=== PATIENT | female | born 1975 | race Caucasian/White ===

== ENCOUNTER 2020-11-24 09:26 | Outpatient (REF) | payer MEDICAID, SELFPAY | END 2020-11-24 09:27 | disposition home or self-care (01) | LOC: HO.LAB 09:26 | PROVIDERS: Visit Provider Internal Medicine | DX: Z20.822 Contact with and (suspected) exposure to COVID-19 (principal) | CPT/HCPCS: 36415; C9803; U0003 ==

== ENCOUNTER 2020-11-27 13:31 | Outpatient (REF) | payer MEDICAID, SELFPAY ==
--- NOTE | 2020-11-27 | MM_ITS ---
EXAMINATION: MM DIAGNOSTIC DIGITAL BREAST TOMOSYNTHESIS, BILATERAL US DIAGNOSTIC ULTRASOUND BREAST, BILATERAL CLINICAL INFORMATION: 45-year-old with tenderness lateral aspect both breasts and retroareolar regions with itchy sensation. Prior mammography approximately 9 years ago performed in [place] at unknown facility. No palpable mass or discharge. No known family history breast cancer. The lifetime risk of breast cancer based on the Tyrer-Cuzick Model is 8%. COMPARISON: None. TECHNIQUE: Digital breast tomosynthesis is performed in both the craniocaudal and mediolateral oblique views along with computer-aided detection (CAD). Synthesized 2D images are generated from the tomosynthesis. Ultrasound of each breast is targeted to the areas of clinical concern bilateral retroareolar regions, right 6:00 through 12:00 position and left 12:00 through 6:00 position. Grayscale imaging and color Doppler are performed without and with harmonics. FINDINGS: There are scattered areas of fibroglandular density (ACR BI-RADS breast composition Category b). There are no significant masses, abnormal calcifications, or other abnormalities. There is no skin thickening or coarsening of the Darinel's ligaments. No focal duct ectasia. Ultrasound ultrasound of each breast targeted to the areas of clinical concern show no cystic or solid mass, architectural abnormality, or focal duct ectasia. There is no skin thickening or edema tracking in the soft tissue planes. No focal hyperemia on color Doppler. Results are discussed with the patient at time of visit. MM/MM tomosynthesis diagnostic BI IMPRESSION: 1. No mammographic evidence of malignancy or inflammatory changes. 2. Unremarkable bilateral targeted breast ultrasound.. ASSESSMENT: BI-RADS 1: Negative RECOMMENDATION: 1. Patient's bilateral breast pain/tenderness should be managed based on the clinical impression. 2. Otherwise, routine annual screening mammography. This patient's information was entered into a reminder system with a target due date for their next mammogram.
--- NOTE | 2020-11-27 13:36 | US_ITS ---
EXAMINATION: MM DIAGNOSTIC DIGITAL BREAST TOMOSYNTHESIS, BILATERAL US DIAGNOSTIC ULTRASOUND BREAST, BILATERAL CLINICAL INFORMATION: 45-year-old with tenderness lateral aspect both breasts and retroareolar regions with itchy sensation. Prior mammography approximately 9 years ago performed in [place] at unknown facility. No palpable mass or discharge. No known family history breast cancer. The lifetime risk of breast cancer based on the Tyrer-Cuzick Model is 8%. COMPARISON: None. TECHNIQUE: Digital breast tomosynthesis is performed in both the craniocaudal and mediolateral oblique views along with computer-aided detection (CAD). Synthesized 2D images are generated from the tomosynthesis. Ultrasound of each breast is targeted to the areas of clinical concern bilateral retroareolar regions, right 6:00 through 12:00 position and left 12:00 through 6:00 position. Grayscale imaging and color Doppler are performed without and with harmonics. FINDINGS: There are scattered areas of fibroglandular density (ACR BI-RADS breast composition Category b). There are no significant masses, abnormal calcifications, or other abnormalities. There is no skin thickening or coarsening of the Darinel's ligaments. No focal duct ectasia. Ultrasound ultrasound of each breast targeted to the areas of clinical concern show no cystic or solid mass, architectural abnormality, or focal duct ectasia. There is no skin thickening or edema tracking in the soft tissue planes. No focal hyperemia on color Doppler. Results are discussed with the patient at time of visit. US/US breast RT limited IMPRESSION: 1. No mammographic evidence of malignancy or inflammatory changes. 2. Unremarkable bilateral targeted breast ultrasound.. ASSESSMENT: BI-RADS 1: Negative RECOMMENDATION: 1. Patient's bilateral breast pain/tenderness should be managed based on the clinical impression. 2. Otherwise, routine annual screening mammography. This patient's information was entered into a reminder system with a target due date for their next mammogram.
--- NOTE | 2020-11-27 13:36 | US_ITS ---
EXAMINATION: MM DIAGNOSTIC DIGITAL BREAST TOMOSYNTHESIS, BILATERAL US DIAGNOSTIC ULTRASOUND BREAST, BILATERAL CLINICAL INFORMATION: 45-year-old with tenderness lateral aspect both breasts and retroareolar regions with itchy sensation. Prior mammography approximately 9 years ago performed in [place] at unknown facility. No palpable mass or discharge. No known family history breast cancer. The lifetime risk of breast cancer based on the Tyrer-Cuzick Model is 8%. COMPARISON: None. TECHNIQUE: Digital breast tomosynthesis is performed in both the craniocaudal and mediolateral oblique views along with computer-aided detection (CAD). Synthesized 2D images are generated from the tomosynthesis. Ultrasound of each breast is targeted to the areas of clinical concern bilateral retroareolar regions, right 6:00 through 12:00 position and left 12:00 through 6:00 position. Grayscale imaging and color Doppler are performed without and with harmonics. FINDINGS: There are scattered areas of fibroglandular density (ACR BI-RADS breast composition Category b). There are no significant masses, abnormal calcifications, or other abnormalities. There is no skin thickening or coarsening of the Darinel's ligaments. No focal duct ectasia. Ultrasound ultrasound of each breast targeted to the areas of clinical concern show no cystic or solid mass, architectural abnormality, or focal duct ectasia. There is no skin thickening or edema tracking in the soft tissue planes. No focal hyperemia on color Doppler. Results are discussed with the patient at time of visit. US/US breast LT limited IMPRESSION: 1. No mammographic evidence of malignancy or inflammatory changes. 2. Unremarkable bilateral targeted breast ultrasound.. ASSESSMENT: BI-RADS 1: Negative RECOMMENDATION: 1. Patient's bilateral breast pain/tenderness should be managed based on the clinical impression. 2. Otherwise, routine annual screening mammography. This patient's information was entered into a reminder system with a target due date for their next mammogram.
== END 2020-11-27 13:32 | disposition home or self-care (01) ==
LOC: HO.MAMMO 13:31
PROVIDERS: Visit Provider Internal Medicine
DX: N64.4 Mastodynia (principal)
CPT/HCPCS: 76642; 77062; 77066

== ENCOUNTER 2020-12-22 10:34 | Emergency (ER) | payer MEDICAID, SELFPAY ==
--- NOTE | ~2020-12-22 | XR_ITS ---
EXAMINATION: XR CHEST CLINICAL INFORMATION: Chest discomfort COMPARISON: 06/23/2018 TECHNIQUE: Portable AP upright view of the chest was obtained. FINDINGS: No significant abnormality is noted involving the heart, lungs, mediastinum, bony thorax or soft tissues. XR/XR chest 1V IMPRESSION: Unremarkable examination.
[2020-12-22 10:39] VITALS: BP 136/63; PULSE 80; RESP 18; TEMP 36.8; O2SAT 98; BMI 29.1
--- NOTE | 2020-12-22 13:14 | ECG_ITS ---
Test Reason : CHEST PRESSUE Blood Pressure : / mmHG Vent. Rate : 060 BPM Atrial Rate : 060 BPM P-R Int : 134 ms QRS Dur : 082 ms QT Int : 418 ms P-R-T Axes : 028 040 003 degrees QTc Int : 418 ms Normal sinus rhythm Normal ECG When compared with ECG of 23-JUN-2018 12:39, Vent. rate has decreased BY 30 BPM Referred By: Jordan Napoles Electronically Signed By:Maynor Mcgregor
[2020-12-22 13:28] LABS: MANUAL DIFF FLAG NO
[2020-12-22 13:29] LABS: Basophils Absolute Auto 0.1 X10*3/uL (0.0-0.2); Basophils Percent Auto 1.1 % (0-2); Eosinophils Absolute Auto 0.1 X10*3/uL (0.0-0.4); Eosinophils Percent Auto 1.5 % (0-4); Hematocrit 39.5 % (37-47); Hemoglobin 13.2 g/dl (12.0-16.0); Imm Gran Abs Auto 0.01 X10*3/uL (0.00-0.03); Imm Gran Pct Auto 0.2 % (0.0-0.4); Lymphocytes Absolute Auto 2.7 X10*3/uL (1.2-4.9); Lymphocytes Percent Auto 44.1 % (20-40); Mean Corpuscular HGB Conc 33.4 g/dl (31.0-35.0); Mean Corpuscular Hemoglobin 30.2 pg (27.0-33.0); Mean Corpuscular Volume 90.4 fL (80-98); Mean Platelet Volume 9.6 fL (9.4-12.3); Monocytes Absolute Auto 0.4 X10*3/uL (0.1-1.2); Monocytes Percent Auto 7.2 % (2-11); Neutrophils Absolute Auto 2.8 X10*3/uL (2.0-8.3); Neutrophils Percent Auto 45.9 % (45-73); Platelet Count 290 X10*3/uL (160-400); Red Blood Count 4.37 X10*6/uL (4.20-5.50); Red Cell Distribution Width 12.3 % (11.0-16.0); White Blood Count 6.1 X10*3/uL (4.8-10.8)
[2020-12-22 13:35] LABS: Prothrombin Time 11.9 SEC (10.8-13.0)
[2020-12-22 13:38] LABS: Partial Thromboplastin Time 31.4 SEC (24.1-38.0)
[2020-12-22 13:39] LABS: D Dimer < 200 NG/ML
--- NOTE | 2020-12-22 13:48 | ED_ITS ---
HPI - Chest Pain General Chief Complaint: Extremity Injury, Lower Stated Complaint: R LEG PAIN AND CHEST DISCOMFORT Time Seen by Provider: 12/22/20 13:13 Source: patient Mode of arrival: ambulatory Limitations: no limitations History of Present Illness HPI narrative: 45-year-old female with past medical history that is significant for mitral valve prolapse, prior history of PE in 2008 in [place] as well as history of asthma who presents ambulatory via triage states that over the past 2 weeks or so has had intermittent chest discomfort not really pain in the left side of the chest and over past several days she has had posterior thigh pain in the left leg which she contributed to her frequent drive to [facility] for her job-related errands and thus given the symptoms she called her primary care doctor today given that today is Thursday she was advised to come to the emergency room. She denies any shortness of breath she does report that prior history of PE and she was concerned about that. No shortness of breath or really are eye symptoms. No dyspnea on exertion. No headache, dizziness, lower extremity swelling. MD complaint: chest pain Pertinent past history: asthma Severity: mild Related Data Previous Rx's Medication Instructions Recorded naproxen 500 mg PO BID PRN #14 tab 12/22/20 Allergies Allergy/AdvReac Type Severity Reaction Status Date / Time hydrocodone [HYDROCODONE] Allergy Mild HIVES Unverified 07/19/20 15:33 bee pollen [BEE STINGS] Allergy Unknown UNKNOWN Unverified 07/19/20 15:33 hydrocodone Allergy Unknown hives Uncoded 07/20/19 00:00 Review of Systems Review of Systems: Constitutional: No Weight loss, No Fever, No Chills, No Night Sweats, No Fatigue, No Malaise ENT/Mouth: No Hearing loss, No Ear Pain, No Nasal Congestion, No Sinus Pain, No Hoarseness, No sore throat, No Rhinorrhea, No Swallowing Difficulty Eyes: No Eye Pain, No Swelling, No Redness, No Foreign Body, No Discharge, No Vision Changes Cardiovascular: No SOB, No Dyspnea on Exertion, No Orthopnea, No Edema, No Palpitations Respiratory: No Cough, No Sputum, No Wheezing, No Smoke Exposure, No Dyspnea Gastrointestinal: No Nausea, No Vomiting, No Diarrhea, No Constipation, No abdominal Pain, No Hematochezia, No Melena Genitourinary: no irregular bleeding, No Dysuria, No Urinary Frequency, No Hematuria, No Urinary Incontinence, No Urgency, No Flank Pain, No Urinary Flow Changes, No Hesitancy Musculoskeletal: No joint pain, No Myalgias, No Joint Swelling, posterior thigh pain as in HPI. Skin: No Skin Lesions, No rash Neuro: No Weakness, No Numbness, No Paresthesias, No Loss of Consciousness, No Dizziness, No Headache Psych: No Social Issues Heme/Lymph: No Bruising, No Bleeding,No Lymphadenopathy Endocrine: No Polyuria, No Polydipsia, No Temperature Intolerance Yes all other systems are reviewed and are negative [facility] Past Medical History Medical History (Updated 12/22/20 @ 14:05 by Jordan Napoles NP) Anxiety Asthma Cervical ca Pulmonary embolism Surgical History (Updated 12/22/20 @ 10:42 by Elie Barrett) History of cardiac radiofrequency ablation Social History Social History Alcohol intake: never Smoking Status: Never smoker Use of substances other than those prescribed or required for medical reasons: No Advance Directives: No Advance Directives Information Provided: No Physical Exam Vital Signs: Vital Signs: Last Vital Signs Temp 98.2 F 12/22/20 10:39 Pulse 80 12/22/20 10:39 Resp 18 12/22/20 10:39 BP 136/63 12/22/20 10:39 Pulse Ox 98 12/22/20 10:39 Body Mass Index 29.1 Reviewed Const: General: cooperative and healthy appearing; No acute distress or in toxicated appearing Nutritional Appearance: average body habitus Orientation/consciousness: patient oriented x3 HENMT: Head: Yes normal to inspection Ears: hearing grossly normal bilaterally Eyes: General: appearance normal, both eyes and all related structures Visual Jimenez: normal visual jimenez by confrontation Neck: Neck: Yes normal visual inspection, No positive Brudzinski's sign, No positive Kernig's sign and No tender Thyroid: Thyroid normal Chest: Chest palpation & inspection: normal inspection of the chest Resp: Effort & Inspection: normal respiratory effort Auscultation: clear to auscultation bilaterally Cardio: Jugular venous distension: no JVD Rhythm: regular rhythm Heart sounds: S1 normal heart sound present and S2 normal heart sound present GI: Inspection: Yes normal to inspection Palpation (GI): Soft to palpation Percussion: Yes normal to percussion Auscultation: normal bowel sounds : General: Yes no CVA tenderness Back/Spine/Pelvis: Back: no CVA tenderness Skin: General skin exam: no rashes or lesions noted Neuro: General: patient oriented x3 Extrem: Other: Some diffuse tenderness with palpation over the posterior t high, full passive range of motion ambulatory steady gait. No palpable mass. Leg lift negative. Negative Homans. No rash. General: Yes normal to inspection MDM - Chest Pain MDM Narrative Medical decision making narrative: D-dimer negative, heart score 0. EKG without significant change, troponin negative. Differential Diagnosis Differential diagnosis: Likely atypical chest pain, costochondritis and chest pain; Unlikely fracture of rib, pneumothorax, stable angina, unstable angina pectoris, st elevation myocardial infarction and biliary colic Differential diagnosis: Pulmonary embolism, DVT, muscle strain Medical Records Data Attestation: I reviewed the patient's medical records. Lab Data Attestation: I reviewed the patient's lab results. Result diagrams: 12/22/20 13:23 12/22/20 13:23 Labs: Lab Results 12/22/20 12/22/20 12/22/20 Range/Units 13:23 13:23 13:23 WBC 6.1 (4.8-10.8) X10*3/uL RBC 4.37 (4.20-5.50) X10*6/uL Hgb 13.2 (12.0-16.0) g/dl Hct 39.5 (37-47) % MCV 90.4 (80-98) fL MCH 30.2 (27.0-33.0) pg MCHC 33.4 (31.0-35.0) g/dl RDW 12.3 (11.0-16.0) % Plt Count 290 (160-400) X10*3/uL MPV 9.6 (9.4-12.3) fL Immature Gran % (Auto) 0.2 (0.0-0.4) % Neut % (Auto) 45.9 (45-73) % Lymph % (Auto) 44.1 H (20-40) % [place] % (Auto) 7.2 (2-11) % Eos % (Auto) 1.5 (0-4) % Baso % (Auto) 1.1 (0-2) % Lymph # (Auto) 2.7 (1.2-4.9) X10*3/uL [place] # (Auto) 0.4 (0.1-1.2) X10*3/uL Eos # (Auto) 0.1 (0.0-0.4) X10*3/uL Baso # (Auto) 0.1 (0.0-0.2) X10*3/uL Abs Immat Gran (auto) 0.01 (0.00-0.03) X10*3/uL Absolute Neuts (auto) 2.8 (2.0-8.3) X10*3/uL Absolute Nucleated RBC 0.000 (0.0-0.012) X10*3/uL Nucleated RBC % (auto) 0.0 (0.0-0.2) /100WBC PT 11.9 (10.8-13.0) SEC INR 1.0 (0.9-1.1) APTT 31.4 (24.1-38.0) SEC D-Dimer < 200 NG/ML Sodium 139 (135-145) mmol/L Potassium 4.0 (3.3-5.1) mmol/L Chloride 109 H (96-108) mmol/L Carbon Dioxide 23 (22-29) mmol/L Anion Gap 11 L (12-20) BUN 20 H (9-16) mg/dL Creatinine 0.81 (0.5-1.4) mg/dL Estim Creat Clear Calc 93.2 Estimated GFR > 60 Random Glucose 87 (60-115) mg/dL Calcium 8.1 L (8.4-10.2) mg/dL Total Bilirubin 0.5 (0.0-1.0) mg/dL AST 16 (5-31) U/L ALT 14 (0-31) U/L Alkaline Phosphatase 69 (39-117) U/L Troponin I High Sens (<3.5-17.0) ng/L Total Protein 7.2 (6.5-8.0) g/dL Albumin 4.3 (3.5-5.0) g/dL 12/22/20 Range/Units 13:23 WBC (4.8-10.8) X10*3/uL RBC (4.20-5.50) X10*6/uL Hgb (12.0-16.0) g/dl Hct (37-47) % MCV (80-98) fL MCH (27.0-33.0) pg MCHC (31.0-35.0) g/dl RDW (11.0-16.0) % Plt Count (160-400) X10*3/uL MPV (9.4-12.3) fL Immature Gran % (Auto) (0.0-0.4) % Neut % (Auto) (45-73) % Lymph % (Auto) (20-40) % [place] % (Auto) (2-11) % Eos % (Auto) (0-4) % Baso % (Auto) (0-2) % Lymph # (Auto) (1.2-4.9) X10*3/uL [place] # (Auto) (0.1-1.2) X10*3/uL Eos # (Auto) (0.0-0.4) X10*3/uL Baso # (Auto) (0.0-0.2) X10*3/uL Abs Immat Gran (auto) (0.00-0.03) X10*3/uL Absolute Neuts (auto) (2.0-8.3) X10*3/uL Absolute Nucleated RBC (0.0-0.012) X10*3/uL Nucleated RBC % (auto) (0.0-0.2) /100WBC PT (10.8-13.0) SEC INR (0.9-1.1) APTT (24.1-38.0) SEC D-Dimer NG/ML Sodium (135-145) mmol/L Potassium (3.3-5.1) mmol/L Chloride (96-108) mmol/L Carbon Dioxide (22-29) mmol/L Anion Gap (12-20) BUN (9-16) mg/dL Creatinine (0.5-1.4) mg/dL Estim Creat Clear Calc Estimated GFR Random Glucose (60-115) mg/dL Calcium (8.4-10.2) mg/dL Total Bilirubin (0.0-1.0) mg/dL AST (5-31) U/L ALT (0-31) U/L Alkaline Phosphatase (39-117) U/L Troponin I High Sens < 3.5 (<3.5-17.0) ng/L Total Protein (6.5-8.0) g/dL Albumin (3.5-5.0) g/dL Imaging Data Chest x-ray: Radiologist's impression: [address] [id number] ReportSigned Patient: Toribio Hicks#: [id number]: 1975Acct:[id number]/Sex: 45 / FADM Date: 12/22/20Loc: EDAttm[address] Dr: Ordering Physician: Jordan Napoles NP Date of Service: 12/22/20 Procedure(s): XR chest 1V Accession Number(s): [id number] cc: Jordan Napoles BOAT [employer]ELER~ EXAMINATION: XR CHEST CLINICAL INFORMATION: Chest discomfort COMPARISON: 06/23/2018 TECHNIQUE: Portable AP upright view of the chest was obtained. FINDINGS: No significant abnormality is noted involving the heart, lungs, mediastinum, bony thorax or soft tissues. XR/XR chest 1V IMPRESSION: Unremarkable examination. Dictated By:TAD CORNELL MDSigned By:<Electronically signed by TAD CORNELL MD in OV>12/22/20 1337 DD/ 1328TD/TT: [place] Waitress/Waiter: LILIANE ECG Data ECG #1: Interpretation: Normal sinus rhythm Rate 60 Normal ECG When compared with ECG of 23-JUN-2018 12:39, Vent. rate has decreased BY 30 BPM Discharge Plan Discharge Clinical Impression: Atypical chest pain, Leg strain Patient Disposition: Home, Self-Care Instructions: Chest Pain (ED), Muscle Strain (ED) Additional Instructions: Your blood work as well as her EKG and chest x-ray were overall reassuring Home care as instructed Follow-up as instructed Return if any concerns worsening symptoms Thank you Prescriptions: New naproxen 500 mg tablet 500 mg PO BID PRN (Reason: pain) Qty: 14 RF: 0 Referrals: [place] MD [Primary Care Provider] - 1 week
[2020-12-22 13:51] LABS: Alanine Aminotransferase 14 U/L (0-31); Albumin Level 4.3 g/dL (3.5-5.0); Alkaline Phosphatase 69 U/L (39-117); Anion Gap 11 (12-20); Aspartate Amino Transferase 16 U/L (5-31); Bilirubin Total 0.5 mg/dL (0.0-1.0); Blood Urea Nitrogen 20 mg/dL (9-16); Calcium 8.1 mg/dL (8.4-10.2); Carbon Dioxide 23 mmol/L (22-29); Chloride 109 mmol/L (96-108); Creatinine Clr Calc Pharmacy 93.2; Estimated Glomerular Filt Rate > 60; Glucose Random 87 mg/dL (60-115); Sodium 139 mmol/L (135-145); Total Protein 7.2 g/dL (6.5-8.0)
[2020-12-22 13:57] LABS: Troponin-I High Sensitivity < 3.5 ng/L (<3.5-17.0)
== END 2020-12-22 15:09 | disposition home or self-care (01) ==
PROVIDERS: Nurse Practitioner Primary Care; Emergency Provider Emergency Medicine; PCP Internal Medicine
DX: R07.89 Other chest pain (principal); S76.911A Strain of unspecified muscles, fascia and tendons at thigh level, right thigh, initial encounter; X50.1XXA Overexertion from prolonged static or awkward postures, initial encounter; Y93.89 Activity, other specified; Y92.810 Car as the place of occurrence of the external cause; Y99.9 Unspecified external cause status; Z85.41 Personal history of malignant neoplasm of cervix uteri
CPT/HCPCS: 36415; 71045; 80053; 84484; 85025; 85379; 85610; 85730; 93005; 99283

== ENCOUNTER 2021-02-08 10:20 | Outpatient (REF) | payer MEDICAID, SELFPAY ==
--- NOTE | ~2021-02-08 | XR_ITS ---
EXAMINATION: XR PELVIS CLINICAL INFORMATION: Low back pain COMPARISON: None TECHNIQUE: AP view of the pelvis. FINDINGS: The bones and soft tissues are normal. No fracture. Sacroiliac and hip joints are normal. Pubic symphysis is normal. No abnormal soft tissue calcifications. XR/XR pelvis 1-2V IMPRESSION: Normal pelvis.
--- NOTE | ~2021-02-08 | XR_ITS ---
EXAMINATION: XR LUMBOSACRAL SPINE CLINICAL INFORMATION: Low back pain. COMPARISON: CT scan of the abdomen and pelvis January 2017 TECHNIQUE: Three views of the lumbosacral spine. FINDINGS: Minimal degenerative disc changes manifested by endplate osteophytes without disc space narrowing L2-L3 and L3-L4 levels. There is mild anterolisthesis of L5 on S1. Bilateral pars defect of L5. The partially visualized pelvis including sacroiliac joints are normal. XR/XR lumbar spine 2-3V IMPRESSION: Mild spondylosis of the lumbosacral spine. Bilateral pars defects at L5 with grade 1 anterolisthesis, unchanged compared with CT in 2017.
--- NOTE | ~2021-02-08 | XR_ITS ---
EXAMINATION: XR SHOULDER, RIGHT CLINICAL INFORMATION: Right shoulder pain COMPARISON: None TECHNIQUE: AP external rotation, Grashey, scapular Y, and axillary views of the right shoulder. FINDINGS: The bones and soft tissues are normal. No fracture. Glenohumeral and acromioclavicular alignment is anatomic with normal joint space. No abnormal soft tissue calcifications. XR/XR shoulder RT min 2V IMPRESSION: Normal right shoulder.
[2021-02-08 14:01] LABS: MANUAL DIFF FLAG NO
[2021-02-08 14:09] LABS: Basophils Absolute Auto 0.1 X10*3/uL (0.0-0.2); Basophils Percent Auto 1.2 % (0-2); Eosinophils Absolute Auto 0.1 X10*3/uL (0.0-0.4); Eosinophils Percent Auto 2.2 % (0-4); Hematocrit 39.3 % (37-47); Hemoglobin 13.3 g/dl (12.0-16.0); Imm Gran Abs Auto 0.01 X10*3/uL (0.00-0.03); Imm Gran Pct Auto 0.2 % (0.0-0.4); Lymphocytes Absolute Auto 1.5 X10*3/uL (1.2-4.9); Mean Corpuscular HGB Conc 33.8 g/dl (31.0-35.0); Mean Corpuscular Hemoglobin 30.6 pg (27.0-33.0); Mean Corpuscular Volume 90.3 fL (80-98); Mean Platelet Volume 10.2 fL (9.4-12.3); Monocytes Absolute Auto 0.6 X10*3/uL (0.1-1.2); Monocytes Percent Auto 15.3 % (2-11); Neutrophils Absolute Auto 1.8 X10*3/uL (2.0-8.3); Neutrophils Percent Auto 44.1 % (45-73); Platelet Count 270 X10*3/uL (160-400); Red Blood Count 4.35 X10*6/uL (4.20-5.50); Red Cell Distribution Width 12.6 % (11.0-16.0); White Blood Count 4.1 X10*3/uL (4.8-10.8)
[2021-02-08 14:25] LABS: Anion Gap 13 (12-20); Blood Urea Nitrogen 16 mg/dL (9-16); C Reactive Protein 0.33 mg/dL (< or = 0.50); Calcium 8.3 mg/dL (8.4-10.2); Carbon Dioxide 25 mmol/L (22-29); Chloride 106 mmol/L (96-108); Estimated Glomerular Filt Rate > 60; Glucose Random 86 mg/dL (60-115); Sodium 140 mmol/L (135-145)
== END 2021-02-08 10:21 | disposition home or self-care (01) ==
LOC: HO.10HDL 10:20
PROVIDERS: PCP Internal Medicine; Visit Provider Internal Medicine
DX: M54.5 Low back pain (principal); M25.511 Pain in right shoulder
CPT/HCPCS: 36415; 72100; 72170; 73030; 80048; 82550; 85025; 86140

== ENCOUNTER 2021-02-25 13:24 | Outpatient (REF) | payer MEDICAID, SELFPAY ==
--- NOTE | ~2021-02-25 | XR_ITS ---
EXAMINATION: XR SINUSES CLINICAL INFORMATION: Sinus pressure COMPARISON: None TECHNIQUE: The sinuses are imaged in 4 views. FINDINGS: The paranasal sinuses are clear. There is no mucosal thickening or air-fluid level. There is no sinus expansion or visible bony thickening or destructive process. The nasopharynx appears unremarkable on the lateral view. XR/XR sinus min 3V IMPRESSION: Unremarkable examination.
[2021-02-25 14:05] LABS: Basophils Absolute Auto 0.1 X10*3/uL (0.0-0.2); Eosinophils Absolute Auto 0.1 X10*3/uL (0.0-0.4); Eosinophils Percent Auto 1.9 % (0-4); Hematocrit 37.9 % (37-47); Hemoglobin 12.7 g/dl (12.0-16.0); Imm Gran Abs Auto 0.02 X10*3/uL (0.00-0.03); Imm Gran Pct Auto 0.3 % (0.0-0.4); Lymphocytes Absolute Auto 2.4 X10*3/uL (1.2-4.9); Lymphocytes Percent Auto 33.6 % (20-40); MANUAL DIFF FLAG NO; Mean Corpuscular HGB Conc 33.5 g/dl (31.0-35.0); Mean Corpuscular Hemoglobin 30.3 pg (27.0-33.0); Mean Corpuscular Volume 90.5 fL (80-98); Mean Platelet Volume 9.9 fL (9.4-12.3); Monocytes Absolute Auto 0.5 X10*3/uL (0.1-1.2); Monocytes Percent Auto 7.4 % (2-11); Neutrophils Percent Auto 55.8 % (45-73); Platelet Count 280 X10*3/uL (160-400); Red Blood Count 4.19 X10*6/uL (4.20-5.50); Red Cell Distribution Width 12.6 % (11.0-16.0); White Blood Count 7.2 X10*3/uL (4.8-10.8)
[2021-02-25 14:36] LABS: Anion Gap 12 (12-20); Blood Urea Nitrogen 12 mg/dL (9-16); C Reactive Protein 0.07 mg/dL (< or = 0.50); Calcium 8.9 mg/dL (8.4-10.2); Carbon Dioxide 24 mmol/L (22-29); Chloride 108 mmol/L (96-108); Estimated Glomerular Filt Rate > 60; Glucose Random 98 mg/dL (60-115); Sodium 140 mmol/L (135-145)
[2021-02-25 15:00] LABS: Thyroid Stimulating Hormone 1.32 uIU/mL (0.32-4.0)
== END 2021-02-25 13:25 | disposition home or self-care (01) ==
LOC: HO.LAB 13:24
PROVIDERS: PCP Internal Medicine; Visit Provider Internal Medicine
DX: M79.89 Other specified soft tissue disorders (principal); J01.90 Acute sinusitis, unspecified
CPT/HCPCS: 36415; 70220; 80048; 82550; 84443; 85025; 86140

== ENCOUNTER 2021-03-13 13:28 | Outpatient (REF) | payer MEDICAID, SELFPAY ==
[2021-03-13 14:30] LABS: COVID-19 Test Negative (Negative); IDNOW Serial# 55D5AD1C
== END 2021-03-13 13:29 | disposition home or self-care (01) ==
LOC: HO.LAB 13:28
PROVIDERS: Visit Provider Internal Medicine
DX: Z20.822 Contact with and (suspected) exposure to COVID-19 (principal)
CPT/HCPCS: 36415; 87635; C9803

== ENCOUNTER 2021-03-31 10:39 | Emergency (ER) | payer MEDICAID, SELFPAY ==
--- NOTE | ~2021-03-31 | XR_ITS ---
EXAMINATION: XR LUMBOSACRAL SPINE CLINICAL INFORMATION: Worsening back pain COMPARISON: None TECHNIQUE: Three views of the lumbosacral spine. FINDINGS: There is normal lumbar lordosis. The vertebral heights and alignment is normal. There is mild loss of L5-S1 disc height. Rest the disc heights are normal. No visible acute fracture, dislocation or lytic process seen. XR/XR lumbar spine 2-3V IMPRESSION: Mild degenerative disc changes L5-S1 disc level.
[2021-03-31 11:01] VITALS: BP 117/71; PULSE 87; RESP 16; TEMP 36.9; O2SAT 99; BMI 28.7
[2021-03-31] MEDS: Cyclobenzaprine HCl 10 MG TABLET PO (12:12)
[2021-03-31] MEDS: predniSONE 20 MG TABLET 60 MG PO (12:12)
[2021-03-31] MEDS: Ketorolac Tromethamine 30 MG/ML VIAL IM (12:13)
[2021-03-31 12:37] VITALS: RESP 16
--- NOTE | 2021-03-31 13:18 | ED.BACK ---
HPI - Back Pain/Injury General Chief Complaint: Back Pain/Injury Stated Complaint: BACK PAIN Time Seen by Provider: 03/31/21 11:56 Source: patient Mode of arrival: ambulatory Limitations: no limitations History of Present Illness HPI Narrative: Patient presents to ED for worsening back pain that began this morning radiating down both legs and causing tingling/numbness sensation in both legs. Patient states history of disc herniation and has follow-up with surgeon of the spine May 10. Patient states this morning she woke up with no problems & went back to bed and then when she woke up again to get up she felt sudden pain in her lower back since then her back has full tight/hurts on range of motion. Patient denies any abdominal pain, flank pain, fever, chills, dysuria, vaginal bleeding, increasue urinary frequency or hematuria. Patient denies any recent blunt trauma to the back or body. Patient denies any urinary/bowel incontinence. Patient denies paralysis of lower extremities. Related Data Previous Rx's Medication Instructions Recorded naproxen 500 mg PO BID PRN #14 tab 12/22/20 naproxen 500 mg PO BID PRN #20 tab 03/31/21 prednisone 40 mg PO DAILY #10 tab 03/31/21 tramadol 50 mg PO TID PRN #9 tab 03/31/21 Allergies Allergy/AdvReac Type Severity Reaction Status Date / Time hydrocodone [HYDROCODONE] Allergy Mild HIVES Verified 03/31/21 11:07 bee pollen [BEE STINGS] Allergy Unknown UNKNOWN Verified 03/31/21 11:07 hydrocodone Allergy Unknown hives Uncoded 03/31/21 11:07 Review of Systems Review of Systems: Yes all other systems are reviewed and are negative Constitutional: Constitutional: Reports as per HPI and Reports no additional constitutional complaints Eyes: Eyes: Reports as per HPI and Reports no additional eye complaints ENT: Reports system reviewed and no additional complaints, except as documented and Reports as per HPI Cardiovascular: Cardiovascular: Reports as per HPI and Reports no additional cardiovascular complaints Respiratory: Respiratory: Reports as per HPI and Reports no additional respiratory complaints Gastrointestinal: Gastrointestinal: Reports no additional gastrointestinal complaints Genitourinary: Genitourinary: Reports no additional female genitourinary complaints and Reports as per HPI Musculoskeletal: Musculoskeletal: Reports no additional musculoskeletal complaints, Reports as per HPI and Reports back pain Neurologic: Reports system reviewed and no additional complaints, except as documented and Reports as per HPI Psychiatric: Psychiatric: Reports no additional psychiatric complaints and Reports as per HPI [facility] Past Medical History Medical History (Updated 03/31/21 @ 14:38 by TAY Pereira) Anxiety Asthma Cervical ca Herniated disc Pulmonary embolism Surgical History (Updated 12/22/20 @ 10:42 by Elie Barrett) History of cardiac radiofrequency ablation Social History Social History Alcohol intake: never Patient Tobacco Use Status: Never used Tobacco Use of substances other than those prescribed or required for medical reasons: No Advance Directives: Yes Advance Directives Information Provided: No Advance Directives on File: No Patient : No Physical Exam Vital Signs: Vital Signs: Last Vital Signs Temp 96.8 F 03/31/21 14:15 Pulse 64 03/31/21 14:15 Resp 16 03/31/21 14:21 BP 121/52 L 03/31/21 14:15 Pulse Ox 100 03/31/21 14:15 Body Mass Index 28.7 Const: General: cooperative, healthy appearing, comfortable, no acute distress, well developed, alert, awake and Physically active Orientation/consciousness: patient oriented x3 HENMT: Head: Yes normal to inspection, Yes No palpable skull fracture present, Yes normocephalic, Yes atraumatic and No abrasion Eyes: General: appearance normal, both eyes and all related structures Neck: Neck: Yes normal visual inspection, Yes full ROM, Yes no lymphadenopathy, Yes no meningeal signs, Yes trachea midline, Yes supple and No tender Chest: Chest palpation & inspection: normal inspection of the chest and normal palpation of entire chest wall Breast/axilla inspection: normal inspection of the breasts Resp: Effort & Inspection: normal respiratory effort and able to speak in complete sentences Auscultation: clear to auscultation bilaterally Cardio: Jugular venous distension: no JVD Heart sounds: S1 normal heart sound present and S2 normal heart sound present GI: Inspection: Yes normal to inspection and No abdominal wall ecchymosis Palpation (GI): Soft to palpation, not firm, nontender, no guarding and not rigid : General: No CVA tenderness and Yes no CVA tenderness Back/Spine/Pelvis: Back: no CVA tenderness, No CVA tenderness and back tenderness (lumbar.) Skin: General skin exam: no rashes or lesions noted and elasticity normal Neuro: General: patient oriented x3, no meningeal signs and CN's II-XI intact bilaterally Cranial nerves: Yes CN's II-XII intact bilaterally Extrem: General: Yes normal to inspection and Yes full ROM Psych: Appearance: grossly normal, well kempt and not disheveled Course Course Course Narrative: Will give meds for pain control. Does not need repeat x-ray due to no trauma. Reevaluation(s) Reevaluation #1: Patient has no relief with Toradol, prednisone, and Flexeril. X-ray of lumbar spine ordered to see for any new fractures. Tramadol ordered. Patient states history of taking tramadol in the past without reaction. Reevaluation #2: X-ray negative for fracture. Patient feels better with tramadol. Patient informed she will need to follow up with PCP and spine surgeon for an early appointment. Patient states may need repeat MRI to evalauate for nerve impingement worsening sciatica. Not suspecting cord compression. MDM - Back Pain/Injury MDM Narrative Medical decision making narrative: Lumbar radiculopathy. Sciatica Discharge Plan Discharge Clinical Impression: Lumbar radiculopathy, Sciatica Patient Disposition: Home, Self-Care Instructions: Sciatica (ED), Lumbar Radiculopathy (ED) Additional Instructions: Return to the ED immediately for urinary/bowel incontinence, paralysis of lower extremities, worsening back pain, abdominal pain, nausea, vomiting, fever, chills, inability to ambulate, flank pain or any other concerning symptoms. Prescriptions: New tramadol 50 mg tablet 50 mg PO TID PRN (Reason: pain (scale score 7-10)) Qty: 9 RF: 0 naproxen 500 mg tablet 500 mg PO BID PRN (Reason: pain) Qty: 20 RF: 0 prednisone 20 mg tablet 40 mg PO DAILY Qty: 10 RF: 0 No Action naproxen 500 mg tablet 500 mg PO BID PRN (Reason: pain) Qty: 14 RF: 0 Referrals: Main Park MD [Primary Care Provider] - 2 days (Lumbar radiculopathy. Worsening sciatica. X-ray shows degenerative changes at L5/S1. Negative for fracture. Will need repeat MRI to evaluate for nerve impingement. Recommend earlier appointment with spine surgeon.) Interventions: ED Discharge Assessment Last Done: 03/31/21 14:59 Discharge Date/Time: 03/31/21 15:13 Print Language: Azerbaijani
[2021-03-31] MEDS: traMADoL HCL 50 MG TABLET PO (13:34)
[2021-03-31 14:15] VITALS: BP 121/52; PULSE 64; RESP 17; TEMP 36; O2SAT 100
[2021-03-31 14:21] VITALS: RESP 16
== END 2021-03-31 15:13 | disposition home or self-care (01) ==
PROVIDERS: Emergency Provider Emergency Medicine Emergency Medical Services; PCP Internal Medicine
DX: M54.16 Radiculopathy, lumbar region (principal); M54.42 Lumbago with sciatica, left side; M54.41 Lumbago with sciatica, right side
CPT/HCPCS: 72100; 96372; 99284; J1885

== ENCOUNTER → 2021-05-13 12:28 | Outpatient (BNVA) | payer MEDICAID, SELFPAY | PROVIDERS: PCP Internal Medicine; Referring Provider Internal Medicine; Visit Provider Internal Medicine Cardiovascular Disease | DX: R00.2 Palpitations (principal); Z86.711 Personal history of pulmonary embolism | CPT/HCPCS: 93005; 99212 ==

== ENCOUNTER 2021-07-12 12:42 | Outpatient (REF) | payer MEDICAID, SELFPAY | END 2021-07-12 12:43 | disposition home or self-care (01) | LOC: HO.LAB 12:42 | PROVIDERS: PCP Internal Medicine; Visit Provider Internal Medicine | DX: Z20.822 Contact with and (suspected) exposure to COVID-19 (principal) | CPT/HCPCS: C9803; U0003; U0005 ==

== ENCOUNTER 2021-07-18 11:00 | Outpatient (REF) | payer MEDICAID, SELFPAY ==
[2021-07-18 11:59] LABS: COVID-19 Test Positive (Negative)
== END 2021-07-18 11:01 | disposition home or self-care (01) ==
LOC: HO.LAB 11:00
PROVIDERS: PCP Internal Medicine; Visit Provider Internal Medicine
DX: Z20.822 Contact with and (suspected) exposure to COVID-19 (principal)
CPT/HCPCS: 36415; 87635; C9803

== ENCOUNTER 2021-08-28 11:53 | Outpatient (REF) | payer MEDICAID, SELFPAY ==
[2021-08-28 13:56] LABS: Appearance Urine HAZY; Color Urine YELLOW; Glucose Urine UA NEG (NEG); Leukocyte Esterase Urine TRACE (NEG); Nitrite Urine NEG (NEG); Specific Gravity - Urine 1.025 (1.005-1.025); UACC Culture Trigger YES; Urine Blood NEG (NEG); Urine Ketones NEG (NEG); Urine Protein NEG (NEG-TRACE)
[2021-08-28 13:57] LABS: MANUAL DIFF FLAG NO
[2021-08-28 14:18] LABS: Basophils Percent Auto 0.7 % (0-2); Eosinophils Absolute Auto 0.1 X10*3/uL (0.0-0.4); Eosinophils Percent Auto 1.2 % (0-4); Hematocrit 38.3 % (37-47); Hemoglobin 12.8 g/dl (12.0-16.0); Imm Gran Abs Auto 0.01 X10*3/uL (0.00-0.03); Imm Gran Pct Auto 0.2 % (0.0-0.4); Lymphocytes Absolute Auto 2.1 X10*3/uL (1.2-4.9); Lymphocytes Percent Auto 35.7 % (20-40); Mean Corpuscular HGB Conc 33.4 g/dl (31.0-35.0); Mean Corpuscular Volume 89.7 fL (80-98); Mean Platelet Volume 10.3 fL (9.4-12.3); Monocytes Absolute Auto 0.4 X10*3/uL (0.1-1.2); Monocytes Percent Auto 7.3 % (2-11); Neutrophils Absolute Auto 3.2 X10*3/uL (2.0-8.3); Neutrophils Percent Auto 54.9 % (45-73); Platelet Count 303 X10*3/uL (160-400); Red Blood Count 4.27 X10*6/uL (4.20-5.50); Red Cell Distribution Width 12.9 % (11.0-16.0); White Blood Count 5.9 X10*3/uL (4.8-10.8)
[2021-08-28 14:31] LABS: Alanine Aminotransferase 17 U/L (0-31); Albumin Level 4.3 g/dL (3.5-5.0); Alkaline Phosphatase 70 U/L (39-117); Anion Gap 12 (12-20); Aspartate Amino Transferase 20 U/L (5-31); Bilirubin Total 0.8 mg/dL (0.0-1.0); Blood Urea Nitrogen 14 mg/dL (9-16); Calcium 8.6 mg/dL (8.4-10.2); Carbon Dioxide 23 mmol/L (22-29); Chloride 109 mmol/L (96-108); Estimated Glomerular Filt Rate > 60; Glucose Random 88 mg/dL (60-115); Potassium 4.2 mmol/L (3.3-5.1); Sodium 140 mmol/L (135-145); Total Protein 7.2 g/dL (6.5-8.0)
[2021-08-28 14:56] LABS: Mucus Urine 1+ /LPF; Squamous Epithelial Cell Urine 2+ /LPF
== END 2021-08-28 11:54 | disposition home or self-care (01) ==
LOC: HO.10HDL 11:53
PROVIDERS: Visit Provider Internal Medicine
DX: R30.0 Dysuria (principal); N20.0 Calculus of kidney
CPT/HCPCS: 36415; 80053; 81001; 81003; 85025; 87086

== ENCOUNTER 2021-08-30 15:27 | Outpatient (REF) | payer MEDICAID, SELFPAY ==
--- NOTE | ~2021-08-30 | US_ITS ---
EXAMINATION: US RETROPERITONEAL COMPLETE (RENAL) CLINICAL INFORMATION: Renal stones. COMPARISON: Ultrasound abdomen complete 02/13/2017. CT abdomen and pelvis 02/10/2017. KUB 08/28/2015 and 11/14/2014. TECHNIQUE: Real-time imaging of the kidneys and bladder. FINDINGS: RIGHT KIDNEY: 10.9 x 4.8 x 4.5 cm (SAG x AP x TRV). The kidney is normal in size, contour, and echogenicity. Renal cortical thickness is normal. There is a 5 mm stone in the lower pole. No focal parenchymal lesions or hydronephrosis. LEFT KIDNEY: 11.2 x 4.7 x 4.4 cm (SAG x AP x TRV). The kidney is normal in size, contour, and echogenicity. Renal cortical thickness is normal. No calculi or focal parenchymal lesions. No hydronephrosis. BLADDER: Partially distended. No stone or mass is seen. Bilateral ureteral jets are demonstrated. Prevoid bladder volume is 117 mL. Postvoid bladder volume is 4.4 mL. US/US retroperitoneal comp IMPRESSION: Right renal stone.
== END 2021-08-30 15:28 | disposition home or self-care (01) ==
LOC: HO.US 15:27
PROVIDERS: PCP Internal Medicine; Visit Provider Internal Medicine
DX: N20.2 Calculus of kidney with calculus of ureter (principal)
CPT/HCPCS: 76770

== ENCOUNTER 2022-02-18 14:33 | Outpatient (REF) | payer MEDICAID, SELFPAY ==
[2022-02-18 14:46] LABS: MANUAL DIFF FLAG NO
[2022-02-18 15:16] LABS: Basophils Absolute Auto 0.1 X10*3/uL (0.0-0.2); Basophils Percent Auto 1.2 % (0-2); Eosinophils Absolute Auto 0.2 X10*3/uL (0.0-0.4); Hematocrit 39.3 % (37.0-47.0); Hemoglobin 13.1 g/dl (12.0-16.0); Lymphocytes Percent Auto 35.8 % (20-40); Mean Corpuscular HGB Conc 33.3 g/dl (31.0-35.0); Mean Corpuscular Hemoglobin 29.7 pg (27.0-33.0); Mean Corpuscular Volume 89.1 fL (80.0-98.0); Mean Platelet Volume 9.6 fL (9.4-12.3); Monocytes Absolute Auto 0.5 X10*3/uL (0.1-1.2); Monocytes Percent Auto 9.4 % (2-11); Neutrophils Absolute Auto 2.8 x10*3/uL (2.0-8.3); Neutrophils Percent Auto 50.6 % (45-73); Platelet Count 324 X10*3/uL (160-400); Red Blood Count 4.41 X10*6/uL (4.20-5.50); Red Cell Distribution Width 13.5 % (11.0-16.0); White Blood Count 5.6 X10*3/uL (4.8-10.8)
[2022-02-18 15:44] LABS: Alanine Aminotransferase 27 U/L (0-31); Albumin Level 4.2 g/dL (3.5-5.0); Alkaline Phosphatase 90 U/L (39-117); Anion Gap 11 (12-20); Aspartate Amino Transferase 25 U/L (5-31); Bilirubin Total 0.6 mg/dL (0.0-1.0); Blood Urea Nitrogen 19 mg/dL (9-16); Calcium 9.2 mg/dL (8.4-10.2); Carbon Dioxide 27 mmol/L (22-29); Chloride 105 mmol/L (96-108); Estimated Glomerular Filt Rate > 60; Glucose Random 60 mg/dL (60-115); Potassium 4.3 mmol/L (3.3-5.1); Sodium 139 mmol/L (135-145); Total Protein 7.3 g/dL (6.5-8.0)
[2022-02-18 16:04] LABS: Free T4 (Free Thyroxine) 1.31 ng/dL (0.71-1.85); Thyroid Stimulating Hormone 0.83 uIU/mL (0.32-4.0)
[2022-02-18 16:08] LABS: Vitamin B12 307 pg/mL (200-900)
== END 2022-02-18 14:34 | disposition home or self-care (01) ==
LOC: HO.LAB 14:33
PROVIDERS: PCP Internal Medicine; Visit Provider Internal Medicine
DX: R53.83 Other fatigue (principal); J45.909 Unspecified asthma, uncomplicated; R00.2 Palpitations; R42 Dizziness and giddiness
CPT/HCPCS: 36415; 80053; 82607; 84439; 84443; 85025

== ENCOUNTER 2022-03-24 04:50 | Emergency (ER) | payer MEDICAID, SELFPAY ==
--- NOTE | ~2022-03-24 | CT_ITS ---
EXAMINATION: CT ABDOMEN AND PELVIS WITHOUT CONTRAST CLINICAL INFORMATION: Diffuse abdominal pain worse in the epigastric. COMPARISON: None TECHNIQUE: Multidetector volumetric imaging was performed from the superior aspect of the liver through the pubic symphysis. Sagittal and coronal reformatted images were obtained on the technologist's workstation. This CT examination was performed using dose optimization techniques as appropriate, variously including the following: *Automated exposure control *Adjustment of mA and/or kV according to patient size (this includes techniques or standardized protocols for targeted exams where dose is matched to indication/reason for exam; i.e. extremities or head) *Use of iterative reconstruction technique DLP: 6:15 mGy-cm FINDINGS: LUNG BASES: The lung bases are clear. Heart size is normal. LIVER, GALLBLADDER, AND BILIARY TREE: The liver is normal in size, shape, and diffuse hypoattenuation. This area of normal attenuation in the right hepatic lobe adjacent to moo hepatis and caudate lobe likely focal fat fatty sparing. No intrahepatic ductal dilatation seen. The gallbladder is unremarkable with no evidence of radiopaque gallstones, gallbladder wall thickening, or obvious pericholecystic inflammatory changes. PANCREAS: Unremarkable. SPLEEN: Unremarkable. ADRENAL GLANDS: Unremarkable. KIDNEYS AND URETERS: There is small radiopaque renal calculi in the upper mid and lower pole right kidney with the largest radiopaque calculi measuring 4 mm in the lower pole. There are small radiopaque calculi in the upper and lower pole left kidney with the largest calculi measuring 2 mm in upper and lower pole. There is no caliectasis or hydronephrosis seen. BLADDER: Unremarkable. GASTROINTESTINAL TRACT: There is scattered stool and gas seen throughout the colon without significant distention. The small bowel loops are normal caliber. Appendix is not visualized. ABDOMINAL WALL: No significant hernia is appreciated. LYMPH NODES: Normal. VASCULAR: Unremarkable. PELVIC VISCERA: The uterus is anteverted and appears unremarkable. There is no free fluid or free air. No adnexal mass seen. OSSEOUS STRUCTURES: There are cages at the L5-S1 disc level for disc fusion. No lytic or sclerotic process seen. CT/CT abdomen pelvis wo con IMPRESSION: No acute intra-abdominal process seen especially no abnormality seen in the epigastric region. Bilateral nonobstructive radiopaque renal calculi. There is no hydronephrosis. Fatty infiltration of liver with areas of focal fatty sparing. Fleischner guidelines were followed.
[2022-03-24 05:04] VITALS: BP 141/64; PULSE 83; RESP 16; TEMP 36.6; O2SAT 100; BMI 28.7
[2022-03-24 05:29] LABS: Basophils Absolute Auto 0.1 X10*3/uL (0.0-0.2); Basophils Percent Auto 0.9 % (0-2); Eosinophils Absolute Auto 0.3 X10*3/uL (0.0-0.4); Eosinophils Percent Auto 4.4 % (0-4); Hematocrit 38.1 % (37.0-47.0); Hemoglobin 12.8 g/dl (12.0-16.0); Imm Gran Abs Auto 0.01 X10*3/uL (0.00-0.03); Imm Gran Pct Auto 0.2 % (0.0-0.4); Lymphocytes Absolute Auto 2.3 X10*3/uL (1.2-4.9); Lymphocytes Percent Auto 41.4 % (20-40); MANUAL DIFF FLAG NO; Mean Corpuscular HGB Conc 33.6 g/dl (31.0-35.0); Mean Corpuscular Hemoglobin 29.9 pg (27.0-33.0); Mean Platelet Volume 9.2 fL (9.4-12.3); Monocytes Absolute Auto 0.5 X10*3/uL (0.1-1.2); Monocytes Percent Auto 8.9 % (2-11); Neutrophils Absolute Auto 2.5 x10*3/uL (2.0-8.3); Neutrophils Percent Auto 44.2 % (45-73); Platelet Count 284 X10*3/uL (160-400); Red Blood Count 4.28 X10*6/uL (4.20-5.50); Red Cell Distribution Width 12.8 % (11.0-16.0); White Blood Count 5.6 X10*3/uL (4.8-10.8)
[2022-03-24 05:51] LABS: Alanine Aminotransferase 17 U/L (0-31); Alkaline Phosphatase 79 U/L (39-117); Anion Gap 10 (12-20); Aspartate Amino Transferase 16 U/L (5-31); Bilirubin Direct < 0.2 mg/dL (0.0-0.5); Bilirubin Total < 0.2 mg/dL (0.0-1.0); Blood Urea Nitrogen 17 mg/dL (9-16); Calcium 8.8 mg/dL (8.4-10.2); Carbon Dioxide 24 mmol/L (22-29); Chloride 107 mmol/L (96-108); Creatinine Clr Calc Pharmacy 90.4; Estimated Glomerular Filt Rate > 60; Glucose Random 108 mg/dL (60-115); Lipase 44 U/L (8-78); Sodium 137 mmol/L (135-145)
--- NOTE | 2022-03-24 06:02 | ED_ITS ---
HPI - Abdominal Pain General Chief Complaint: Abdominal Pain Stated Complaint: abd pain/stomach pain Time Seen by Provider: 03/24/22 05:54 Source: patient Mode of arrival: ambulatory Limitations: no limitations History of Present Illness HPI narrative: Patient comes to the emergency room complaining of 2 days of epigastric pain. Patient states that she has history of ulcers. However she has not had any issues lately, has been following a diet, denies eating any food that might upset her stomach. Patient denies fever chills, no coughing, no vomiting diarrhea. Related Data Home Medications Medication Instructions Recorded Confirmed escitalopram oxalate 10 mg tablet 1 tab PO QAM 05/28/21 05/28/21 multivitamin 1 tab PO DAILY 05/28/21 05/28/21 trazodone 50 mg tablet 1 tab PO BEDTIME PRN 05/28/21 05/28/21 Previous Rx's Medication Instructions Recorded tramadol 50 mg tablet 50 mg PO TID PRN #9 tab 03/31/21 omeprazole 20 mg capsule,delayed 20 mg PO DAILY #20 cap 03/24/22 release Allergies Allergy/AdvReac Type Severity Reaction Status Date / Time hydrocodone [HYDROCODONE] Allergy Mild HIVES Verified 03/31/21 11:07 bee pollen [BEE STINGS] Allergy Unknown UNKNOWN Verified 03/31/21 11:07 hydrocodone Allergy Unknown hives Uncoded 03/31/21 11:07 Review of Systems Review of Systems Constitutional : No Weight loss, No Fever, No Chills, No Night Sweats, No Fatigue, No Malaise ENT/Mouth : No Hearing loss, No Ear Pain, No Nasal Congestion, No Sinus Pain, No Hoarseness, No sore throat, No Rhinorrhea, No Swallowing Difficulty Eyes: No Eye Pain, No Swelling, No Redness, No Foreign Body, No Discharge, No Vision Changes Cardiovascular : No Chest Pain, No SOB, No Dyspnea on Exertion, No Orthopnea, No Edema, No Palpitations Respiratory : No Cough, No Sputum, No Wheezing, No Smoke Exposure, No Dyspnea Gastrointestinal : Modeling of nausea No Vomiting, No Diarrhea, No Constipation, complaining of epigastric pain Genitourinary : no irregular bleeding, No Dysuria, No Urinary Frequency, No Hematuria, No Urinary Incontinence, No Urgency, No Flank Pain, No Urinary Flow Changes, No Hesitancy Musculoskeletal : No joint pain, No Myalgias, No Joint Swelling Skin : No Skin Lesions, No rash Neuro : No Weakness, No Numbness, No Paresthesias, No Loss of Consciousness, No Dizziness, No Headache Psych : No Anxiety/Panic, No Depression, No SI/HI/AH/VH, No Social Issues, Heme/Lymph: No Bruising, No Bleeding,No Lymphadenopathy Endocrine : No Polyuria, No Polydipsia, No Temperature Intolerance [facility] Past Medical History Medical History Anxiety Asthma Cervical ca Herniated disc Pulmonary embolism Surgical History History of cardiac radiofrequency ablation Family History Family History (Updated 05/28/21 @ 14:33 by Dora Jacobs) Maternal Uncle Prostate cancer Maternal Grandfather Stroke Paternal Grandfather Lung cancer Paternal Aunt Stomach cancer Maternal Grandmother Heart attack Dementia Father Diabetes HTN (hypertension) Maternal Uncle HTN (hypertension) Maternal Uncle HTN (hypertension) Paternal Grandmother Dementia Social History Social History (Updated 05/28/21 @ 14:33 by Dora Jacobs) Alcohol intake: former Patient Tobacco Use Status: Never used Tobacco Advance Directives: No Advance Directives Information Provided: Yes Physical Exam ED Vital Signs: Vital Signs - 24 hr 03/24/22 05:04 03/24/22 06:37 03/24/22 06:40 Temperature 97.8 F 98.5 F Pulse Rate 83 65 87 Respiratory Rate 16 16 16 Blood Pressure 141/64 H 139/85 116/60 Pulse Oximetry 100 100 95 BMI result Body Mass Index 28.7 Const Other: Appearance: Alert. Oriented X3. No acute distress. Eyes: Pupils equal, round and reactive to light. ENT: Pharynx normal. Neck: Normal inspection. Neck supple. No lymph nodes noted. No crepitus CVS: Normal heart rate and rhythm. Pulses normal. Normal S1 and S2 Respiratory: No respiratory distress. Breath sounds normal. No Wheezing. No rales Abdomen: Soft , tender to palpation epigastric area, however she is also tender in all quadrants. Skin: Skin warm and dry. Normal skin color. Normal skin turgor. Extremities: No lower extremity edema. No Lacerations. No Rash Neuro: Oriented X 3. No motor deficit. No sensory deficit. Moving all extremities. No slurred speech. CN 2 through 12 grossly intact Psych: calm, cooperative, normal affect Course Course Course Narrative: I discussed the labs with the patient, no significant acute findings. However, physical exam she was tender in all quadrants. Will go ahead get CT scan. Precipitating discharged home. Likely peptic ulcer disease. LFTs within normal limits. Sign-out given to Dr. Gupta [facility] - Abdominal Pain Lab Data Result diagrams: 03/24/22 05:03/24/22 05:23 Labs: Lab Results 03/24/22 03/24/22 Range/Units 05: 05:23 WBC 5.6 (4.8-10.8) X10*3/uL RBC 4.28 (4.20-5.50) X10*6/uL Hgb 12.8 (12.0-16.0) g/dl Hct 38.1 (37.0-47.0) % MCV 89.0 (80.0-98.0) fL MCH 29.9 (27.0-33.0) pg MCHC 33.6 (31.0-35.0) g/dl RDW 12.8 (11.0-16.0) % Plt Count 284 (160-400) X10*3/uL MPV 9.2 L (9.4-12.3) fL Immature Gran % (Auto) 0.2 (0.0-0.4) % Neut % (Auto) 44.2 L (45-73) % Lymph % (Auto) 41.4 H (20-40) % Dukes % (Auto) 8.9 (2-11) % Eos % (Auto) 4.4 H (0-4) % Baso % (Auto) 0.9 (0-2) % Lymph # (Auto) 2.3 (1.2-4.9) X10*3/uL Dukes # (Auto) 0.5 (0.1-1.2) X10*3/uL Eos # (Auto) 0.3 (0.0-0.4) X10*3/uL Baso # (Auto) 0.1 (0.0-0.2) X10*3/uL Abs Immat Gran (auto) 0.01 (0.00-0.03) X10*3/uL Absolute Neuts (auto) 2.5 (2.0-8.3) x10*3/uL Absolute Nucleated RBC 0.000 (0.0-0.012) X10*3/uL Nucleated RBC % (auto) 0.0 (0.0-0.2) /100WBC Sodium 137 (135-145) mmol/L Potassium 4.0 (3.3-5.1) mmol/L Chloride 107 (96-108) mmol/L Carbon Dioxide 24 (22-29) mmol/L Anion Gap 10 L (12-20) BUN 17 H (9-16) mg/dL Creatinine 0.85 (0.5-1.4) mg/dL Estim Creat Clear Calc 90.4 Estimated GFR > 60 Random Glucose 108 (60-115) mg/dL Calcium 8.8 (8.4-10.2) mg/dL Total Bilirubin < 0.2 (0.0-1.0) mg/dL Direct Bilirubin < 0.2 (0.0-0.5) mg/dL AST 16 (5-31) U/L ALT 17 (0-31) U/L Alkaline Phosphatase 79 (39-117) U/L Total Protein 7.0 (6.5-8.0) g/dL Albumin 4.0 (3.5-5.0) g/dL Lipase 44 (8-78) U/L Discharge Plan Discharge Clinical Impression: Peptic ulcer Patient Disposition: Home, Self-Care Instructions: Peptic Ulcer (ED), Diet for Stomach Ulcers and Gastritis (ED) Additional Instructions: Please follow-up with your primary care physician tomorrow. If you have any worsening or new symptoms, please return to the emergency room or call 911 Prescriptions: New omeprazole 20 mg capsule,delayed release(DR/EC) 20 mg PO DAILY Qty: 20 0RF No Action tramadol 50 mg tablet 50 mg PO TID PRN (Reason: pain (scale score 7-10)) Qty: 9 0RF multivitamin Tablet 1 tab PO DAILY 0RF trazodone 50 mg tablet 1 tab PO BEDTIME PRN (Reason: Insomnia) 0RF escitalopram oxalate 10 mg tablet 1 tab PO QAM 0RF
--- NOTE | 2022-03-24 06:04 | ECG_ITS ---
Test Reason : EPI GASTRIC PAIN Blood Pressure : / mmHG Vent. Rate : 062 BPM Atrial Rate : 062 BPM P-R Int : 142 ms QRS Dur : 078 ms QT Int : 394 ms P-R-T Axes : 023 040 000 degrees QTc Int : 399 ms Normal sinus rhythm Normal ECG When compared with ECG of 22-DEC-2020 13:32, No significant change was found Referred By: Precious Salas Electronically Signed By:Maynor Mcgregor
[2022-03-24] MEDS: Magnesium Hydrox/Alum Hydrox 30 ML ORAL.SUSP PO (06:32)
[2022-03-24] MEDS: Lidocaine HCl Viscous 2 % 15 ML SOLUTION MUCOUS MEM (06:32)
[2022-03-24 06:37] VITALS: BP 139/85; PULSE 65; RESP 16; TEMP 36.9; O2SAT 100
[2022-03-24 06:40] VITALS: BP 116/60; PULSE 87; RESP 16; O2SAT 95
[2022-03-24 07:03] LABS: Appearance Urine HAZY; Color Urine YELLOW; Glucose Urine UA NEG (NEG); Leukocyte Esterase Urine NEG (NEG); Nitrite Urine NEG (NEG); Urine Blood NEG (NEG); Urine Ketones NEG (NEG); Urine Protein NEG (NEG-TRACE)
[2022-03-24 09:01] VITALS: BP 95/47; PULSE 71; RESP 16; O2SAT 98
== END 2022-03-24 09:10 | disposition home or self-care (01) ==
PROVIDERS: Emergency Medicine; Emergency Provider Emergency Medicine
DX: K27.9 Peptic ulcer, site unspecified, unspecified as acute or chronic, without hemorrhage or perforation (principal); Z86.711 Personal history of pulmonary embolism
CPT/HCPCS: 36415; 74176; 80053; 81003; 82248; 83690; 85025; 93005; 99284

== ENCOUNTER 2022-04-28 17:12 | Outpatient (REF) | payer MEDICAID, SELFPAY ==
[2022-04-28 17:41] LABS: Strep A Nucleic Acid Negative (Negative)
== END 2022-04-28 17:13 | disposition home or self-care (01) ==
LOC: HO.LNP 17:12
PROVIDERS: Visit Provider Internal Medicine
DX: J02.9 Acute pharyngitis, unspecified (principal)
CPT/HCPCS: 87651

== ENCOUNTER → 2022-06-24 13:59 | Outpatient (BNVA) | payer MEDICAID, SELFPAY | PROVIDERS: PCP Internal Medicine; Visit Provider Physician Assistant | DX: K21.9 Gastro-esophageal reflux disease without esophagitis (principal); R68.81 Early satiety; Z79.899 Other long term (current) drug therapy | CPT/HCPCS: 83013; 99202; 99212 ==

== ENCOUNTER 2022-06-24 14:55 | Outpatient (REF) | payer MEDICAID, SELFPAY ==
[2022-06-27 13:40] LABS: H Pylori Breath Test Negative (Negative)
== END 2022-06-24 14:56 | disposition home or self-care (01) ==
LOC: HO.LNP 14:55
PROVIDERS: Visit Provider Physician Assistant
DX: A04.8 Other specified bacterial intestinal infections (principal); K21.9 Gastro-esophageal reflux disease without esophagitis; R68.81 Early satiety; Z12.11 Encounter for screening for malignant neoplasm of colon; Z79.899 Other long term (current) drug therapy
CPT/HCPCS: 83013

== ENCOUNTER → 2022-09-18 15:20 | Outpatient (BNVA) | payer MEDICAID, SELFPAY | PROVIDERS: PCP Internal Medicine; Visit Provider Internal Medicine Cardiovascular Disease | DX: R22.1 Localized swelling, mass and lump, neck (principal); R00.2 Palpitations; Z86.711 Personal history of pulmonary embolism; Z98.890 Other specified postprocedural states | CPT/HCPCS: 99212 ==

== ENCOUNTER 2022-10-23 14:11 | Outpatient (REF) | payer MEDICAID, SELFPAY ==
--- NOTE | ~2022-10-23 | US_ITS ---
EXAMINATION: US SOFT TISSUE HEAD/NECK CLINICAL INFORMATION: Localized swelling, mass or lump, neck. COMPARISON: Ultrasound soft tissue head/neck 03/02/2018. TECHNIQUE: Linear transducer grayscale and color Doppler examination of the left neck, just above clavicle. FINDINGS: No abnormality is identified by ultrasound. No adenopathy, mass or fluid collection is seen. US/US soft tiss head and/or neck IMPRESSION: No abnormality identified by ultrasound.
== END 2022-10-23 14:12 | disposition home or self-care (01) ==
LOC: HO.US 14:11
PROVIDERS: Visit Provider Internal Medicine Cardiovascular Disease
DX: R22.1 Localized swelling, mass and lump, neck (principal)
CPT/HCPCS: 76536

== ENCOUNTER 2023-02-03 14:12 | Outpatient (REF) | payer MEDICAID, SELFPAY ==
[2023-02-03 14:33] LABS: MANUAL DIFF FLAG NO
[2023-02-03 14:42] LABS: Basophils Absolute Auto 0.1 X10*3/uL (0.0-0.2); Basophils Percent Auto 1.2 % (0-2); Eosinophils Absolute Auto 0.1 X10*3/uL (0.0-0.4); Eosinophils Percent Auto 2.6 % (0-4); Hematocrit 38.3 % (37.0-47.0); Imm Gran Abs Auto 0.01 X10*3/uL (0.00-0.03); Imm Gran Pct Auto 0.2 % (0.0-0.4); Lymphocytes Absolute Auto 2.2 X10*3/uL (1.2-4.9); Lymphocytes Percent Auto 43.8 % (20-40); Mean Corpuscular HGB Conc 33.9 g/dl (31.0-35.0); Mean Corpuscular Volume 91.4 fL (80.0-98.0); Mean Platelet Volume 9.6 fL (9.4-12.3); Monocytes Absolute Auto 0.4 X10*3/uL (0.1-1.2); Monocytes Percent Auto 7.7 % (2-11); Neutrophils Absolute Auto 2.3 x10*3/uL (2.0-8.3); Neutrophils Percent Auto 44.5 % (45-73); Platelet Count 263 X10*3/uL (160-400); Red Blood Count 4.19 X10*6/uL (4.20-5.50); Red Cell Distribution Width 12.3 % (11.0-16.0); White Blood Count 5.1 X10*3/uL (4.8-10.8)
[2023-02-03 15:20] LABS: Alanine Aminotransferase 16 U/L (0-31); Albumin Level 4.1 g/dL (3.5-5.0); Alkaline Phosphatase 76 U/L (39-117); Anion Gap 8 (12-20); Aspartate Amino Transferase 18 U/L (5-31); Bilirubin Total 0.3 mg/dL (0.0-1.0); Blood Urea Nitrogen 15 mg/dL (9-16); Calcium 8.9 mg/dL (8.4-10.2); Carbon Dioxide 30 mmol/L (22-29); Chloride 107 mmol/L (96-108); Estimated Glomerular Filt Rate > 60; Glucose Random 85 mg/dL (60-115); Potassium 4.6 mmol/L (3.3-5.1); Sodium 140 mmol/L (135-145)
[2023-02-03 15:41] LABS: Free T4 (Free Thyroxine) 1.14 ng/dL (0.71-1.85); Thyroid Stimulating Hormone 1.09 uIU/mL (0.32-4.0); Vitamin B12 369 pg/mL (200-900)
[2023-02-04 14:34] LABS: Follicle Stimulating Hormone 61.5 mIU/mL; Lutenizing Hormone 62.1 mIU/mL
== END 2023-02-03 14:13 | disposition home or self-care (01) ==
LOC: HO.LAB 14:12
PROVIDERS: PCP Internal Medicine; Visit Provider Internal Medicine
DX: R53.83 Other fatigue (principal)
CPT/HCPCS: 36415; 80053; 82607; 83001; 83002; 84439; 84443; 85025

== ENCOUNTER 2023-07-25 17:25 | Emergency (ER) | payer MEDICAID, SELFPAY ==
--- NOTE | ~2023-07-25 | XR_ITS ---
EXAMINATION: XR HAND, RIGHT CLINICAL INFORMATION: Pain COMPARISON: None available. TECHNIQUE: PA, lateral, and oblique views of the right hand. FINDINGS: The bones and soft tissues are normal. No fracture. Alignment is anatomic. Joint spaces are maintained. No erosions or soft tissue calcifications. XR/XR hand RT min 3V IMPRESSION: No acute osseous changes to explain patient's pain symptoms.
[2023-07-25 17:29] VITALS: BP 119/56; PULSE 83; RESP 18; TEMP 36.8; O2SAT 99; BMI 28.5
--- NOTE | 2023-07-25 17:31 | ED_ITS ---
HPI - Wound/Laceration General Chief Complaint: Extremity Injury, Upper Stated Complaint: Poked right hand with a dania nail, pain/throbbing Time Seen by Provider: 07/25/23 17:55 Source: patient, RN notes reviewed and old records reviewed Mode of arrival: ambulatory History of Present Illness HPI narrative: 48-year-old female with a past medical history of GERD, PE, palpitations, presenting to the ED complaining of puncture wound to right palm s/p accidentally slamming hand into ceiling where dania nail was sticking out 1 hour [employer]. Tetanus greater than 5 years ago. Denies fever/chills, drainage from area, numbness/tingling Onset (ago): hour(s) Related Data Home Medications Medication Instructions Recorded Confirmed zolpidem 5 mg tablet (Ambien) 5 mg PO BEDTIME PRN 06/24/22 09/18/22 albuterol sulfate 90 mcg/actuation 2 puff inhalation QID PRN 09/18/22 aerosol inhaler (ProAir HFA) nabumetone 500 mg tablet 500 mg PO BID 09/18/22 valacyclovir 1 gram tablet 1,000 mg PO BID 09/18/22 Previous Rx's Medication Instructions Recorded cephalexin 500 mg capsule 500 mg PO QID 7 days #28 caps 07/25/23 Allergies Allergy/AdvReac Type Severity Reaction Status Date / Time wasp Allergy Severe Anaphylaxis Uncoded 07/25/23 17:35 hydrocodone Allergy Unknown hives Uncoded 07/25/23 17:35 Review of Systems Review of Systems: Constitutional: No Fever, No Chills ENT/Mouth: No Ear Pain, No Nasal Congestion, No sore throat, No Rhinorrhea, No Swallowing Difficulty Cardiovascular: No Chest Pain, No SOB Respiratory: No Cough, No Sputum, No Wheezing Gastrointestinal: No Nausea, No Vomiting, No Abdominal pain Musculoskeletal: +joint pain, No Myalgias, + Joint Swelling Skin: +Skin Lesions, No rash Neuro: No Weakness, No Numbness, No Paresthesias Yes all other systems are reviewed and are negative Constitutional: Constitutional: Reports as per [facility] Past Medical History Attestation statement: The following information was validated with the patient. Source: old records reviewed Medical History Herniated disc Anxiety Asthma Cervical ca Pulmonary embolism Surgical History History of back surgery History of cardiac radiofrequency ablation Family History Family History Maternal Uncle Prostate cancer Maternal Grandfather Stroke Paternal Grandfather Lung cancer Paternal Aunt Stomach cancer Maternal Grandmother Heart attack Dementia Father Diabetes HTN (hypertension) Maternal Uncle HTN (hypertension) Maternal Uncle HTN (hypertension) Paternal Grandmother Dementia Social History Social History Alcohol intake: former Patient Tobacco Use Status: Never used Tobacco Smoked in Last 30 Days: No Use of substances other than those prescribed or required for medical reasons: No Advance Directives: No Advance Directives Information Provided: No Physical Exam Vital Signs: Vital Signs: Last Vital Signs Temp 98.2 F 07/25/23 17:29 Pulse 83 07/25/23 17:29 Resp 18 07/25/23 17:29 BP 119/56 L 07/25/23 17:29 Pulse Ox 99 07/25/23 17:29 O2 Del Method Room Air 07/25/23 17:29 BMI result Body Mass Index 28.5 Const: General: cooperative, healthy appearing and no acute distress Orientation/consciousness: patient oriented x3 Limitations: no limitations HEENT: Head: Yes normal to inspection and Yes atraumatic Ears: hearing grossly normal bilaterally General nose exam: Normal external nose present Face and sinus: Yes normal facial exam Eyes: General: appearance normal, both eyes and all related structures EOM: EOMs intact bilaterally Neck: Neck: Yes normal visual inspection and Yes no meningeal signs Resp: Effort & Inspection: normal respiratory effort and no respiratory distress Cardio: Rate: regular rate Heart sounds: S1 normal heart sound present and S2 normal heart sound present Peripheral pulses: radial pulses present and ulnar radial pulses present Skin: Rashes: no rashes Neuro: General: patient oriented x3, tone normal and no meningeal signs Cranial nerves: Yes CN's II-XII intact bilaterally Gait exam (Neuro): Normal gait present Extrem: Other: + small puncture wound noted to right pa lm. Mild surrounding swelling. +ttp. No surrounding erythema, fluctuance/induration or appreciable retained foreign body. Full range of motion to digits and wrist intact. No snuffbox tenderness. Neurovascularly intact. No streaking Course Course Course Narrative: This is an RME: Additional HPI, ROS, PE not included below will be deferred to primary provider. This is a 62-psis-ihd-female presenting to the emergency department with complaints of right hand pain since today. She states that she hit her right palm with a lot of force into a dania nail by accident. She has had throbbing pain in her right hand. She states that her tetanus is not up to date. She is right hand dominant. Puncture wound noted to right palm with surrounding pain. Plan: Xray right hand. XR hand RT min 3V IMPRESSION: No acute osseous changes to explain patient's pain symptoms. Results discussed with patient including worrisome signs and symptoms and strict return precautions, and when to return to the emergency department. They verbalized understanding and feel safe for discharge at this time. Medications Administered Discontinued Medications Generic Name Dose Route Start Last Admin Trade Name Freq PRN Reason Stop Dose Admin Diphtheria/Tetanus/Acell Pertussis 0.5 ml 07/25/23 17:33 07/25/23 18:04 Diphth,Pertus(Acell),Tet Adult 0.5 Ml Syringe IM 07/25/23 17:34 0.5 ml .ONCE ONE Administration Medical Decision Making Medical Decision Making MDM Narrative: 48-year-old female with a past medical history of GERD, PE, palpitations, presenting to the ED complaining of puncture wound to right palm s/p ac cidentally slamming hand into ceiling where dania nail was sticking out 1 hour [employer]. On exam vital signs stable, NAD, nontoxic appearing, physical exam as noted above. Concern for puncture wound. Low suspicion for retained foreign body or acute cellulitis. Plan: X-rays ordered in triage, update tetanus, prophylactic antibiotics Please refer to course for remaining clinical decision making, interpretation of labs/imaging results, and discussions with consultants and/or family members. Differential Diagnosis Differential Diagnoses: The differential diagnosis associated with the presentation includes As above Radiology Impression Discussion of test interpretation with radiology: I have reviewed the radiologist's reading. External Record Review External record reviewed: Inpatient record, Office record, Outpatient record, Prior outpatient labs, Prior outpatient radiology, Primary care record and Outside ED record Tests considered The following testing was considered but not selected: As above Prescription Management I considered prescription management with: Pain Medication and Antibiotic Discharge Plan Discharge Clinical Impression: Puncture wound of hand Patient Disposition: Home, Self-Care Instructions: Puncture Wound (DC) Additional Instructions: your x-ray was unremarkable Keflex as an antibiotic please take as prescribed Her tetanus was updated Keep a close eye on the area if begins to look infected, is red there is drainage or you fever return to the ED Prescriptions: New cephalexin 500 mg capsule 500 mg PO QID 7 Days Qty: 28 0RF No Action zolpidem [Ambien] 5 mg tablet 5 mg PO BEDTIME PRN nabumetone 500 mg tablet 500 mg PO BID albuterol sulfate [ProAir HFA] 90 mcg/actuation HFA aerosol inhaler 2 puff inhalation QID PRN valacyclovir 1 gram tablet 1,000 mg PO BID Referrals: [place] MD [Primary Care Provider] - 5 days
[2023-07-25] MEDS: Diphth,Pertus(ACell),Tet Adult 0.5 ML SYRINGE IM (18:04)
[2023-07-25 19:08] VITALS: BP 115/54; PULSE 73; RESP 18; TEMP 36.8; O2SAT 99
== END 2023-07-25 19:10 | disposition home or self-care (01) ==
PROVIDERS: Emergency Provider Emergency Medicine; PCP Internal Medicine
DX: S61.431A Puncture wound without foreign body of right hand, initial encounter (principal); W45.0XXA Nail entering through skin, initial encounter; Y93.89 Activity, other specified; Y92.019 Unspecified place in single-family (private) house as the place of occurrence of the external cause; Y99.9 Unspecified external cause status
CPT/HCPCS: 73130; 90471; 90715; 99284

== ENCOUNTER 2023-09-04 15:15 | Outpatient (REF) | payer MEDICAID, SELFPAY ==
[2023-09-04 15:40] LABS: MANUAL DIFF FLAG NO
[2023-09-04 16:20] LABS: Basophils Absolute Auto 0.1 X10*3/uL (0.0-0.2); Basophils Percent Auto 1.2 % (0-2); Eosinophils Absolute Auto 0.2 X10*3/uL (0.0-0.4); Hematocrit 36.8 % (37.0-47.0); Hemoglobin 12.3 g/dl (12.0-16.0); Imm Gran Abs Auto 0.02 X10*3/uL (0.00-0.03); Imm Gran Pct Auto 0.3 % (0.0-0.4); Lymphocytes Absolute Auto 2.7 X10*3/uL (1.2-4.9); Lymphocytes Percent Auto 43.9 % (20-40); Mean Corpuscular HGB Conc 33.4 g/dl (31.0-35.0); Mean Corpuscular Hemoglobin 30.8 pg (27.0-33.0); Mean Corpuscular Volume 92.2 fL (80.0-98.0); Mean Platelet Volume 9.8 fL (9.4-12.3); Monocytes Absolute Auto 0.5 X10*3/uL (0.1-1.2); Monocytes Percent Auto 8.9 % (2-11); Neutrophils Absolute Auto 2.6 x10*3/uL (2.0-8.3); Neutrophils Percent Auto 42.7 % (45-73); Platelet Count 283 X10*3/uL (160-400); Red Blood Count 3.99 X10*6/uL (4.20-5.50); Red Cell Distribution Width 12.4 % (11.0-16.0); White Blood Count 6.1 X10*3/uL (4.8-10.8)
[2023-09-04 16:26] LABS: Appearance Urine Clear; Color Urine Yellow; Glucose Urine UA Negative (Negative); Leukocyte Esterase Urine Negative (Negative); Nitrite Urine Negative (Negative); UMIC TRIGGER UA YES; Urine Blood Moderate (2+) (Negative); Urine Ketones Negative (Negative); Urine Protein Negative (Neg-Trace)
[2023-09-04 16:44] LABS: Alanine Aminotransferase 10 U/L (0-31); Albumin Level 4.1 g/dL (3.5-5.0); Alkaline Phosphatase 71 U/L (39-117); Anion Gap 8 (12-20); Aspartate Amino Transferase 16 U/L (5-31); Bilirubin Total 0.3 mg/dL (0.0-1.0); Blood Urea Nitrogen 16 mg/dL (9-16); Calcium 8.9 mg/dL (8.4-10.2); Carbon Dioxide 27 mmol/L (22-29); Chloride 107 mmol/L (96-108); Estimated Glomerular Filt Rate > 60; Glucose Random 78 mg/dL (60-115); Potassium 4.1 mmol/L (3.3-5.1); Sodium 138 mmol/L (135-145); Total Protein 7.1 g/dL (6.5-8.0)
[2023-09-04 16:56] LABS: Bacteria Urine None Seen (None Seen); Hyaline Casts Urine 0-2 /LPF (0-2); WBC Urine 0-5 /HPF (0-5)
== END 2023-09-04 15:16 | disposition home or self-care (01) ==
LOC: HO.LAB 15:15
PROVIDERS: PCP Internal Medicine; Visit Provider Internal Medicine
DX: R31.9 Hematuria, unspecified (principal); Z87.898 Personal history of other specified conditions
CPT/HCPCS: 36415; 80053; 81001; 85025

== ENCOUNTER 2023-09-17 16:35 | Outpatient (REF) | payer MEDICAID, SELFPAY ==
--- NOTE | ~2023-09-17 | XR_ITS ---
EXAMINATION: XR HIP, LEFT CLINICAL INFORMATION: Pain. COMPARISON: None available. TECHNIQUE: AP and frog-leg lateral views of the left hip. FINDINGS: No fracture. Alignment is anatomic. Hip joint space is maintained. Soft tissues are unremarkable. There are left pelvic surgical clips. XR/XR hip LT min 2V IMPRESSION: Normal left hip.
== END 2023-09-17 16:36 | disposition home or self-care (01) ==
LOC: HO.XRAY 16:35
PROVIDERS: PCP Internal Medicine; Visit Provider Internal Medicine
DX: M25.552 Pain in left hip (principal)
CPT/HCPCS: 73502

== ENCOUNTER 2023-10-07 12:28 | Outpatient (AMB) | payer MEDICAID, SELFPAY ==
--- NOTE | 2023-10-07 12:31 | MHC.OFFVIS ---
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 The patient states that several years ago she underwent low back surgery by Dr. Philip. The patient states that she got only mild relief from that surgery. Since that time her back pain, left leg weakness and left leg numbness have gotten worse in spite of continued non operative treatments. She has tried Tylenol and anti-inflammatory medicines which gave her minimal relief. She has also done physical therapy which aggravated her symptoms. Allergies wasp Allergy (Severe, Uncoded 09/11/23 15:21) Anaphylaxis hydrocodone Allergy (Intermediate, Uncoded 10/07/23 12:36) hives Hydrocodone-Ibuprofen Allergy (Unknown, Uncoded 10/07/23 12:36) Hives Medication List - Last Reconciled 10/07/23 by Guy Andino MD albuterol sulfate 90 mcg/actuation (ProAir HFA) 2 puffs inhalation QID PRN cephalexin 500 mg PO QID 7 days nabumetone 500 mg PO BID valacyclovir 1,000 mg PO BID zolpidem (Ambien) 5 mg PO BEDTIME PRN PFSH Medical History Herniated disc Anxiety Asthma Cervical ca Pulmonary embolism Surgical History History of back surgery History of cardiac radiofrequency ablation Family History Maternal Uncle Prostate cancer Maternal Grandfather Stroke Paternal Grandfather Lung cancer Paternal Aunt Stomach cancer Maternal Grandmother Heart attack Dementia Father Diabetes HTN (hypertension) Maternal Uncle HTN (hypertension) Maternal Uncle HTN (hypertension) Paternal Grandmother Dementia Social History Alcohol intake: former Patient Tobacco Use Status: Never used Tobacco Physical Exam Vital Signs: BMI result Body Mass Index 27.9 Const Other: Well-nourished well-developed very friendly female awake alert and oriented x3 in no acute distress Back/Spine/Pelvis Other: Low back examination shows left-sided paraspinal muscle tenderness, pain with range of motion, positive straight leg raise test on the left at 70 degrees, 4/5 strength with testing of her left hip flexors and knee extensors when compared to 5/5 strength on her right side Extrem Other: Bilateral lower extremity examination shows good capillary refill, no skin lesions noted, normal sensation light touch Left hip examination shows full range of motion when compared to her right hip, minimal discomfort with range of motion, mild tenderness over her bursa Results Reviewed Results Reviewed: X-rays of the patient's left hip show no significant degenerative changes, no acute bony abnormalities Assessment & Plan Assessment & Plan (1) Low back pain: Code(s): M54.50 - Low back pain, unspecified Plan Ms. Hicks presents with progressively worsening low back pain which radiates down her left leg as well as associated left leg weakness possibly due to lumbar stenosis or a disc herniation. Thus, I will send the patient for an MRI of her lumbar spine for further evaluation. I will contact her by phone once the MRI results are available. She will call me prior to that time should her symptoms worsen in any way. I did give her a prescription for a Medrol Dosepak to help with her symptoms in the meantime. Feel free to call me at any time should questions regarding her orthopedic management arise. Thank you very much for asking me to see this very friendly patient. I spent 22 minutes in reviewing the patient's records and imaging studies, seeing the patient and documenting in the medical record. Orders: Orders MR lumbar spine wo con Today M54.50 - Low back pain, unspecified Medications: New methylprednisolone (Medrol (Scott)) PO PER PKG DIR 21 ea 0RF Coding Level of Care Code New Pt Level 2 (73862) Diagnoses Low back pain M54.50
[2023-10-07 12:36] VITALS: BMI 27.9
== END 2023-10-07 12:54 | disposition home or self-care (01) ==
PROVIDERS: PCP Internal Medicine; Visit Provider Orthopaedic Surgery
DX: M54.50 Low back pain, unspecified (principal)
CPT/HCPCS: 99202

== ENCOUNTER → 2023-10-07 12:28 | Outpatient (BNVA) | payer MEDICAID, SELFPAY | PROVIDERS: PCP Internal Medicine; Visit Provider Orthopaedic Surgery | DX: M54.50 Low back pain, unspecified (principal) | CPT/HCPCS: 99202 ==

== ENCOUNTER 2024-04-15 19:26 | Emergency (ER) | payer OTHER, SELFPAY ==
--- NOTE | ~2024-04-15 | XR_ITS ---
EXAMINATION: XR ELBOW, RIGHT CLINICAL INFORMATION: Fall. Pain. COMPARISON: None available. TECHNIQUE: AP, lateral, and oblique views of the right elbow. FINDINGS: There is no fracture or dislocation. No significant joint effusion. Regional soft tissue is normal in appearance. XR/XR elbow RT 2V IMPRESSION: No fracture or dislocation.
[2024-04-15 19:31] VITALS: BP 126/68; PULSE 85; RESP 18; TEMP 36.8; O2SAT 98; BMI 28.7
--- NOTE | 2024-04-15 19:34 | ED_ITS ---
HPI - Extremity Injury (Upper) General Chief Complaint: Extremity Injury, Upper Stated Complaint: arm inj s/p fall Time Seen by Provider: 04/15/24 20:10 Source: patient Mode of arrival: ambulatory Limitations: no limitations History of Present Illness HPI narrative: Patient is a 48-year-old female who presents emergency department for evaluation of right elbow pain after a fall. Denies head Strike or loss of consciousness. Decreased AROM, pain made worse with flexion arm being held in extension. Related Data Home Medications ?Medication ?Instructions ?Recorded ?Confirmed zolpidem 5 mg tablet (Ambien) 5 mg PO BEDTIME PRN 06/24/22 10/07/23 albuterol sulfate 90 mcg/actuation 2 puff inhalation QID PRN 09/18/22 10/07/23 aerosol inhaler (ProAir HFA) nabumetone 500 mg tablet 500 mg PO BID 09/18/22 10/07/23 valacyclovir 1 gram tablet 1,000 mg PO BID 09/18/22 10/07/23 Previous Rx's ?Medication ?Instructions ?Recorded cephalexin 500 mg capsule 500 mg PO QID 7 days #28 caps 07/25/23 methylprednisolone 4 mg tablets in See Rx Instructions PO PER PKG DIR 10/07/23 a dose pack (Medrol (Scott)) #21 ea Allergies Allergy/AdvReac Type Severity Reaction Status Date / Time wasp Allergy Severe Anaphylaxis Uncoded 04/15/24 19:34 hydrocodone Allergy Intermediate hives Uncoded 04/15/24 19:34 Hydrocodone-Ibuprofen Allergy Unknown Hives Uncoded 04/15/24 19:34 Review of Systems Review of Systems: Yes all other systems are reviewed and are negative PMFSH Past Medical History Attestation statement: The following information was validated with the patient. Source: old records reviewed Medical History Herniated disc Anxiety Asthma Cervical ca Pulmonary embolism Surgical History History of back surgery History of cardiac radiofrequency ablation Family History Family History Maternal Uncle Prostate cancer Maternal Grandfather Stroke Paternal Grandfather Lung cancer Paternal Aunt Stomach cancer Maternal Grandmother Heart attack Dementia Father Diabetes HTN (hypertension) Maternal Uncle HTN (hypertension) Maternal Uncle HTN (hypertension) Paternal Grandmother Dementia Social History Social History Alcohol intake: former Patient Tobacco Use Status: Never used Tobacco Advance Directives: No Advance Directives Information Provided: No Do you have a plan to hurt others: No Plan Physical Exam Vital Signs: Vital Signs: Last Vital Signs Temp 98.0 F 04/15/24 20:45 Pulse 75 04/15/24 20:45 Resp 18 04/15/24 20:45 BP 118/55 L 04/15/24 20:45 Pulse Ox 98 04/15/24 20:45 O2 Del Method Room Air 04/15/24 20:45 BMI result Body Mass Index 28.7 Appearance: Alert.?Oriented to person, place and time. No acute distress.?Normal affect. Neck: Normal inspection.? Neck supple.?? CVS: Heart sounds normal. Normal heart rate and rhythm.? Pulses normal.?? Respiratory: No respiratory distress.? Lung sounds clear to auscultation bilaterally?? Skin: Skin warm and dry.? Normal skin color.? Extremities: Decreased AROM to left shoulder, full extension, flexion to 35 degrees. 2+ radial pulse bilaterally. CMS intact distally Neuro: Moves all extremities spontaneously. Sensation intact bilaterally. Ambulates with normal steady gait. Medical Decision Making Medical Decision Making MDM Narrative: Patient is a 48-year-old female presents emergency department for evaluation traumatic right elbow pain. On examination extremity is neurovascularly intact distally, is able to hold the arm in extension, flexion to approximately 35 degrees before this provokes pain to become worse. No evidence of bursitis, no open wounds or abrasions. Differential Diagnosis Differential Diagnoses: The differential diagnosis associated with the presentation includes (Fracture, dislocation, contusion) Independent Interpretation I performed an independent interpretation of an: Plain X-Ray (No acute fracture or dislocation) Radiology Impression Discussion of test interpretation with radiology: I have reviewed the radiologist's reading. Radiologist Impression: XR/XR elbow RT 2V IMPRESSION: No fracture or dislocation. External Record Review External record reviewed: Outpatient record Prescription Management I considered prescription management with: Pain Medication (Acetaminophen/ibuprofen) Discharge Plan Discharge Clinical Impression: Contusion of elbow, right Patient Disposition: Home, Self-Care Instructions: Contusion in Adults (ED) Additional Instructions: You can take ibuprofen 200 mg, 3 tablets (600mg) every 6-8 hours as needed for pain, in addition to Tylenol 500 mg, 2 tablets (1,000mg) every 4-6 hours as needed for pain, but not to exceed 3 doses daily (3,000mg).? 5 to the area for 10-15 minutes 3-4 times daily. Use Ezra bandage as instructed. Follow-up with primary care provider. Prescriptions: No Action cephalexin 500 mg capsule 500 mg PO QID 7 Days Qty: 28 0RF zolpidem [Ambien] 5 mg tablet 5 mg PO BEDTIME PRN nabumetone 500 mg tablet 500 mg PO BID albuterol sulfate [ProAir HFA] 90 mcg/actuation HFA aerosol inhaler 2 puff inhalation QID PRN valacyclovir 1 gram tablet 1,000 mg PO BID methylprednisolone [Medrol (Scott)] 4 mg tablets,dose pack See Rx Instructions PO PER PKG DIR Qty: 21 0RF Rx Instructions: PO PER PKG DIR Referrals: Physician,Unknown J [Primary Care Provider] - Interventions: ED Discharge Assessment Last Done: 04/15/24 20:45 Discharge Date/Time: 04/15/24 20:46 Print Language: Vietnamese
[2024-04-15 20:01] VITALS: BP 118/55; PULSE 75; RESP 18; TEMP 36.7; O2SAT 98
[2024-04-15 20:45] VITALS: BP 118/55; PULSE 75; RESP 18; TEMP 36.7; O2SAT 98
== END 2024-04-15 20:46 | disposition home or self-care (01) ==
PROVIDERS: Emergency Provider Internal Medicine
DX: S50.01XA Contusion of right elbow, initial encounter (principal); W01.0XXA Fall on same level from slipping, tripping and stumbling without subsequent striking against object, initial encounter; Y93.9 Activity, unspecified; Y92.9 Unspecified place or not applicable; Y99.8 Other external cause status; Z79.899 Other long term (current) drug therapy
CPT/HCPCS: 73070; 99283

== ENCOUNTER 2024-06-23 20:27 | Emergency (ER) | payer SELFPAY ==
--- NOTE | ~2024-06-23 | CT_ITS ---
EXAMINATION: CT ABDOMEN AND PELVIS WITHOUT CONTRAST CLINICAL INFORMATION: Right flank pain. History of stone. COMPARISON: CT abdomen and pelvis 03/24/2022 TECHNIQUE: Multidetector volumetric imaging was performed from the superior aspect of the liver through the pubic symphysis. Sagittal and coronal reformatted images were obtained on the technologist's workstation. This CT examination was performed using dose optimization techniques as appropriate, variously including the following: *Automated exposure control *Adjustment of mA and/or kV according to patient size (this includes techniques or standardized protocols for targeted exams where dose is matched to indication/reason for exam; i.e. extremities or head) *Use of iterative reconstruction technique DLP: 642 mGy-cm FINDINGS: LUNG BASES: The visualized lung bases are unremarkable. LIVER, GALLBLADDER, AND BILIARY TREE: The liver is normal in size, shape, and attenuation. No focal hepatic lesion or biliary ductal dilatation is present. The gallbladder is unremarkable with no evidence of radiopaque gallstones, gallbladder wall thickening, or obvious pericholecystic inflammatory changes. PANCREAS: Unremarkable. SPLEEN: Unremarkable. ADRENAL GLANDS: Unremarkable. KIDNEYS AND URETERS: Left collecting system: 3 punctate calculi in the left renal pelvis, the largest measuring 3 mm x 2 mm within the superior pole. No left-sided ureterectasis or left ureteral calculi identified. Right collecting system: 2 calculi identified within the right renal pelvis, the largest measuring 1 mm x 1 mm within the superior right renal pelvis. No ureteral calculi identified. No hydronephrosis or perinephric inflammatory changes visualized. Urinary bladder is decompressed. BLADDER: Decompressed GASTROINTESTINAL TRACT: The base of the appendix measures 8 mm in diameter. Distal appendix and fundus of the appendix measures 6 mm in diameter. No periappendiceal inflammatory changes noted. No free intraperitoneal fluid or gas collections noted. ABDOMINAL WALL: No significant hernia is appreciated. LYMPH NODES: Normal. VASCULAR: Unremarkable. PELVIC VISCERA: Unremarkable. OSSEOUS STRUCTURES: Interbody device is present at L5-S1. CT/CT abdomen pelvis wo IV con IMPRESSION: *Small number of bilateral punctate nonobstructing renal calculi. No evidence of acute obstructive nephropathy. No hydronephrosis or perinephric inflammatory changes. *Borderline findings suspicious for possible appendicitis. The base of the appendix measures 8 mm in diameter, 2 mm above normal limits of size. The distal appendix and fundus of the appendix are normal in appearance. Findings may represent early CT evidence of appendicitis. No periappendiceal fluid collections or inflammatory changes noted. This result was discussed with Suman Brown MD MD by telephone at 06/24/2024 4:43 AM CDT and it was ascertained that the content and urgency of the report was understood at the time of direct communication. Electronically signed by: Slick Gomez MD 06/24/2024 05:43 AM EDT
[2024-06-23 21:26] VITALS: BP 134/77; PULSE 85; RESP 18; TEMP 36.6; O2SAT 100; BMI 29.9
[2024-06-23 22:19] LABS: Hematocrit 36.4 % (37.0-47.0); Hemoglobin 12.8 g/dl (12.0-16.0); Mean Corpuscular HGB Conc 35.2 g/dl (31.0-35.0); Mean Corpuscular Hemoglobin 30.8 pg (27.0-33.0); Mean Corpuscular Volume 87.7 fL (80.0-98.0); Mean Platelet Volume 9.2 fL (9.4-12.3); Platelet Count 265 X10*3/uL (160-400); Red Blood Count 4.15 X10*6/uL (4.20-5.50); Red Cell Distribution Width 12.5 % (11.0-16.0); White Blood Count 6.6 X10*3/uL (4.8-10.8)
[2024-06-23 22:21] LABS: Appearance Urine Clear; Color Urine Yellow; Glucose Urine UA Negative (Negative); Leukocyte Esterase Urine Negative (Negative); Nitrite Urine Negative (Negative); Urine Blood Negative (Negative); Urine Ketones Negative (Negative); Urine Protein Negative (Neg-Trace)
[2024-06-23 22:41] LABS: Alanine Aminotransferase 22 U/L (0-31); Albumin Level 4.1 g/dL (3.5-5.0); Alkaline Phosphatase 76 U/L (39-117); Anion Gap 10 (12-20); Aspartate Amino Transferase 21 U/L (5-31); Bilirubin Total 0.3 mg/dL (0.0-1.0); Blood Urea Nitrogen 17 mg/dL (9-16); Calcium 8.9 mg/dL (8.4-10.2); Carbon Dioxide 26 mmol/L (22-29); Chloride 108 mmol/L (96-108); Creatinine Clr Calc Pharmacy 87.3; Estimated Glomerular Filt Rate > 60; Glucose Random 99 mg/dL (60-115); Potassium 4.2 mmol/L (3.3-5.1); Sodium 140 mmol/L (135-145); Total Protein 7.2 g/dL (6.5-8.0)
[2024-06-24 02:17] VITALS: BP 119/69; PULSE 66; RESP 18; TEMP 36.6; O2SAT 97
--- NOTE | 2024-06-24 02:39 | ED.FEMALEGU ---
HPI - Female Genitourinary General Chief complaint: Urogenital-Female Stated complaint: passed two kidney stones,one stone stuck Time Seen by Provider: 06/24/24 02:39 Source: patient Mode of arrival: ambulatory Limitations: no limitations History of Present Illness ED Provider: eduard JEAN Narrative: Patient with no diagnosis of kidney stones been having intermittent hematuria for last 2 months past mall stone 2 months ago and last 1 had intermittent hematuria now she comes for 4 days of pain in right flank area was not able to urinate prior to arrival felt stone in the tip of the urethra which she passed when she urinated in the ER now feeling much better no pain at this time patient does have a significant family history of kidney stone no vomiting had slight nausea no fever Related Data Home Medications ?Medication ?Instructions ?Recorded ?Confirmed zolpidem 5 mg tablet (Ambien) 5 mg PO BEDTIME PRN 06/24/22 10/07/23 albuterol sulfate 90 mcg/actuation 2 puff inhalation QID PRN 09/18/22 10/07/23 aerosol inhaler (ProAir HFA) nabumetone 500 mg tablet 500 mg PO BID 09/18/22 10/07/23 valacyclovir 1 gram tablet 1,000 mg PO BID 09/18/22 10/07/23 Previous Rx's ?Medication ?Instructions ?Recorded cephalexin 500 mg capsule 500 mg PO QID 7 days #28 caps 07/25/23 methylprednisolone 4 mg tablets in See Rx Instructions PO PER PKG DIR 10/07/23 a dose pack (Medrol (Scott)) #21 ea Allergies Allergy/AdvReac Type Severity Reaction Status Date / Time wasp Allergy Severe Anaphylaxis Uncoded 06/23/24 21:30 hydrocodone Allergy Intermediate hives Uncoded 06/23/24 21:30 Hydrocodone-Ibuprofen Allergy Unknown Hives Uncoded 06/23/24 21:30 Review of Systems Review of Systems: Yes all other systems are reviewed and are negative PMFSH Past Medical History Medical History Herniated disc Anxiety Asthma Cervical ca Pulmonary embolism Surgical History History of back surgery History of cardiac radiofrequency ablation Family History Family History Maternal Uncle Prostate cancer Maternal Grandfather Stroke Paternal Grandfather Lung cancer Paternal Aunt Stomach cancer Maternal Grandmother Heart attack Dementia Father Diabetes HTN (hypertension) Maternal Uncle HTN (hypertension) Maternal Uncle HTN (hypertension) Paternal Grandmother Dementia Social History Social History Alcohol intake: former Patient Tobacco Use Status: Never used Tobacco Use of substances other than those prescribed or required for medical reasons: No Advance Directives: No Advance Directives Information Provided: No Physical Exam Vital Signs: Vital Signs: Last Vital Signs Temp 97.8 F 06/24/24 04:57 Pulse 63 06/24/24 04:57 Resp 18 06/24/24 04:57 BP 122/48 L 06/24/24 04:57 Pulse Ox 97 06/24/24 02:17 O2 Del Method Room Air 06/24/24 04:57 BMI result Body Mass Index 29.9 Appearance: Alert. Oriented X3. No acute distress. Eyes: No pallor or icterus ENT: Pharynx normal. Oral Mucosa moist Neck: Normal inspection. Neck supple. CVS: Normal heart rate and rhythm. Pulses normal. Respiratory: No respiratory distress. Equal air entry bilateral, no wheezing/rales/rhonchi Abdomen: Soft and nontender. Bowel sounds are present, no mass palpable, mild r CVA tenderness Skin: Skin warm and dry. Normal skin color. Normal skin turgor. Extremities: No lower extremity edema. No calf tenderness Neuro: Oriented X 3. No motor deficit. Medications Administered Discontinued Medications Generic Name Dose Route Start Last Admin Trade Name Al PRN Reason Stop Dose Admin Ketorolac Tromethamine 60 mg 06/24/24 04:02 06/24/24 04:19 Ketorolac Tromethamine 60 Mg/2 Ml Vial IM 06/24/24 04:03 60 mg ONCE ONE Administration Ondansetron HCl 4 mg 06/24/24 04:02 06/24/24 04:20 Ondansetron Odt 4 Mg Tab.Rapdis TRANSLINGU 06/24/24 04:03 4 mg ONCE ONE Administration Tamsulosin HCl 0.4 mg 06/24/24 04:02 06/24/24 04:19 Tamsulosin Hcl 0.4 Mg Capsule PO 06/24/24 04:03 0.4 mg ONCE ONE Administration Medical Decision Making Medical Decision Making [facility] Narrative: Patient has passed 2 small stones prior to arrival which was sent for analysis patient is pain-free at this time will discharge patient home advised to follow with urologist CT scan did not show any obstructive uropathy showed slightly enlarged appendix without any inflammatory changes patient denied any pain after arrival in the ER in right lower quadrant WBC counts are normal patient advised to report to the ER if pain continues Patient aware about the chances of appendicitis will come back the ER if pain continues Differential Diagnosis Differential Diagnoses: The differential diagnosis associated with the presentation includes Urinary tract infection/renal colic/appendicitis/diverticulitis Lab Data [facility] Lab Attestation statement: I reviewed the patient's lab results. 06/23/24 22:06 06/23/24 22:06 Labs: Lab Results 06/23/24 Range/Units 22:06 WBC 6.6 (4.8-10.8) X10*3/uL RBC 4.15 L (4.20-5.50) X10*6/uL Hgb 12.8 (12.0-16.0) g/dl Hct 36.4 L (37.0-47.0) % MCV 87.7 (80.0-98.0) fL MCH 30.8 (27.0-33.0) pg MCHC 35.2 H (31.0-35.0) g/dl RDW 12.5 (11.0-16.0) % Plt Count 265 (160-400) X10*3/uL MPV 9.2 L (9.4-12.3) fL Absolute Nucleated RBC 0.000 (0.0-0.012) X10*3/uL Nucleated RBC % (auto) 0.0 (0.0-0.2) /100WBC Sodium 140 (135-145) mmol/L Potassium 4.2 (3.3-5.1) mmol/L Chloride 108 (96-108) mmol/L Carbon Dioxide 26 (22-29) mmol/L Anion Gap 10 L (12-20) BUN 17 H (9-16) mg/dL Creatinine 0.87 (0.5-1.4) mg/dL Estim Creat Clear Calc 87.3 Estimated GFR > 60 Random Glucose 99 (60-115) mg/dL Calcium 8.9 (8.4-10.2) mg/dL Total Bilirubin 0.3 (0.0-1.0) mg/dL AST 21 (5-31) U/L ALT 22 (0-31) U/L Alkaline Phosphatase 76 (39-117) U/L Total Protein 7.2 (6.5-8.0) g/dL Albumin 4.1 (3.5-5.0) g/dL Urine Color Yellow Urine Appearance Clear Urine pH 6.0 (5.0-9.0) Ur Specific [place] 1.010 (1.005-1.025) Urine Protein Negative (Neg-Trace) mg/dL Urine Glucose (UA) Negative (Negative) mg/dL Urine Ketones Negative (Negative) mg/dL Urine Blood Negative (Negative) Urine Nitrite Negative (Negative) Ur Leukocyte Esterase Negative (Negative) Independent Interpretation I performed an independent interpretation of an: CT Scan Radiology Impression Discussion of test interpretation with radiology: I have reviewed the radiologist's reading. Radiologist Impression: [place] [id number] CT Scan Report Signed Patient: Rupesh Hicks MR#: [id number] : 1975 Acct:[id number] Age/Sex: 49 / F ADM Date: 06/24/24 Loc: HO.ED Attending Dr: Ordering Physician: Suman Brown MD Date of Service: 06/24/24 Procedure(s): CT abdomen pelvis wo IV con Accession Number(s): [id number] cc: [place] MD; Suman Brown MD~ EXAMINATION: CT ABDOMEN AND PELVIS WITHOUT CONTRAST CLINICAL INFORMATION: Right flank pain. History of stone. COMPARISON: CT abdomen and pelvis 03/24/2022 TECHNIQUE: Multidetector volumetric imaging was performed from the superior aspect of the liver through the pubic symphysis. Sagittal and coronal reformatted images were obtained on the technologist's workstation. This CT examination was performed using dose optimization techniques as appropriate, variously including the following: *Automated exposure control *Adjustment of mA and/or kV according to patient size (this includes techniques or standardized protocols for targeted exams where dose is matched to indication/reason for exam; i.e. extremities or head) *Use of iterative reconstruction technique DLP: 642 mGy-cm FINDINGS: LUNG BASES: The visualized lung bases are unremarkable. LIVER, GALLBLADDER, AND BILIARY TREE: The liver is normal in size, shape, and attenuation. No focal hepatic lesion or biliary ductal dilatation is present. The gallbladder is unremarkable with no evidence of radiopaque gallstones, gallbladder wall thickening, or obvious pericholecystic inflammatory changes. PANCREAS: Unremarkable. SPLEEN: Unremarkable. ADRENAL GLANDS: Unremarkable. KIDNEYS AND URETERS: Left collecting system: 3 punctate calculi in the left renal pelvis, the largest measuring 3 mm x 2 mm within the superior pole. No left-sided ureterectasis or left ureteral calculi identified. Right collecting system: 2 calculi identified within the right renal pelvis, the largest measuring 1 mm x 1 mm within the superior right renal pelvis. No ureteral calculi identified. No hydronephrosis or perinephric inflammatory changes visualized. Urinary bladder is decompressed. BLADDER: Decompressed GASTROINTESTINAL TRACT: The base of the appendix measures 8 mm in diameter. Distal appendix and fundus of the appendix measures 6 mm in diameter. No periappendiceal inflammatory changes noted. No free intraperitoneal fluid or gas collections noted. ABDOMINAL WALL: No significant hernia is appreciated. LYMPH NODES: Normal. VASCULAR: Unremarkable. PELVIC VISCERA: Unremarkable. OSSEOUS STRUCTURES: Interbody device is present at L5-S1. CT/CT abdomen pelvis wo IV con IMPRESSION: *Small number of bilateral punctate nonobstructing renal calculi. No evidence of acute obstructive nephropathy. No hydronephrosis or perinephric inflammatory changes. *Borderline findings suspicious for possible appendicitis. The base of the appendix measures 8 mm in diameter, 2 mm above normal limits of size. The distal appendix and fundus of the appendix are normal in appearance. Findings may represent early CT evidence of appendicitis. No periappendiceal fluid collections or inflammatory changes noted. This result was discussed with Suman Brown MD MD by telephone at 06/24/2024 4:43 AM CDT and it was ascertained that the content and urgency of the report was understood at the time of direct communication. Electronically signed by: Slick Gomez MD 06/24/2024 05:43 AM EDT Dictated By: Slick Gomez MD Signed By: <Electronically signed by Slick Gomez MD in OV> Discharge Plan Discharge Clinical Impression: Kidney calculus Patient Disposition: Home, Self-Care Instructions: Kidney Stones (ED), Low Oxalate Diet (ED) Additional Instructions: Drink plenty of fluid Follow up with urologist Avoid food containing high oxalate Prescriptions: No Action cephalexin 500 mg capsule 500 mg PO QID 7 Days Qty: 28 0RF zolpidem [Ambien] 5 mg tablet 5 mg PO BEDTIME PRN nabumetone 500 mg tablet 500 mg PO BID albuterol sulfate [ProAir HFA] 90 mcg/actuation HFA aerosol inhaler 2 puff inhalation QID PRN valacyclovir 1 gram tablet 1,000 mg PO BID methylprednisolone [Medrol (Scott)] 4 mg tablets,dose pack See Rx Instructions PO PER PKG DIR Qty: 21 0RF Rx Instructions: PO PER PKG DIR Referrals: Abdias Caballero MD [Physician] - Interventions: ED Discharge Assessment Last Done: 06/24/24 04:57 Discharge Date/Time: 06/24/24 04:58 Print Language: Rwandan
[2024-06-24] MEDS: Tamsulosin HCL 0.4 MG CAPSULE PO (04:19)
[2024-06-24] MEDS: Ketorolac Tromethamine 60 MG/2 ML VIAL IM (04:19)
[2024-06-24] MEDS: Ondansetron ODT 4 MG TAB.RAPDIS TRANSLINGU (04:20)
[2024-06-24 04:57] VITALS: BP 122/48; PULSE 63; RESP 18; TEMP 36.6
[2024-06-29 20:19] LABS: Stone Source URINE
== END 2024-06-24 04:58 | disposition home or self-care (01) ==
PROVIDERS: Emergency Provider Internal Medicine; PCP Internal Medicine
DX: N20.0 Calculus of kidney (principal); Z87.442 Personal history of urinary calculi
CPT/HCPCS: 36415; 74176; 80053; 81003; 82365; 85027; 96372; 99284; J1885

== ENCOUNTER → 2024-07-12 10:04 | Outpatient (RCR) | payer MEDICAID, SELFPAY ==
[2021-05-28 14:25] VITALS: BP 119/57; PULSE 74; RESP 14; TEMP 36.3; O2SAT 98; BMI 28.2
--- NOTE | 2021-05-28 15:00 | P.CNHO_ITS ---
Subjective - Subjective Chief complaint: History of pulmonary embolism Patient: new to practice Consult date: 05/28/21 Primary Care Provider: Main Park MD Medical Summary: Diagnosis: Pulmonary embolism around 2011 HPI - Consult Narrative Reason for consult: History of pulmonary embolism Narrative: Rupesh Hicks is a 45 year old female was referred because of history of pulmonary embolism. Patient was in her 30s when she experienced an unprovoked pulmonary embolism when she was living in [place]. She had extensive workup and was seen by Cardiology, Pulmonary and Hematology subsequent to the episode. All her workup was negative including test for lupus anticoagulant. There is no family history of thromboembolism. Patient is a lifelong nonsmoker and was not on control pills. She had 3 successful pregnancies without any complications. She was apparently checked and and ruled out for extremity DVT. She was on anticoagulation with warfarin for about a year and a half and then that was discontinued. She was told that this could occur years later and she feels she is like ?a ticking time bomb?. She was on Eliquis briefly when she received Nabil and Nabil vaccine and had to fly to [place]. She is going for hip surgery at [facility] in a few weeks. She denies any complaints such as leg pain or swelling, no pleuritic chest pain, shortness of breath or cough. She has started screening mammography. Patient was treated for pre invasive cervical cancer with LEEP procedure. Review of Systems - Constitutional Reports as per HPI, Reports no additional constitutional complaints Oncology Screenings - ECOG Performance Status ECOG Performance Status: 0 PMFSH Medical History: Medical History (Last Updated 05/28/21 @ 14:32 by Dora Jacobs) Anxiety Asthma Cervical ca Herniated disc Pulmonary embolism Family History: Family History (Last Updated 05/28/21 @ 14:33 by Dora Jacobs) Maternal Uncle Prostate cancer Maternal Grandfather Stroke Paternal Grandfather Lung cancer Paternal Aunt Stomach cancer Maternal Grandmother Heart attack Dementia Father Diabetes HTN (hypertension) Maternal Uncle HTN (hypertension) Maternal Uncle HTN (hypertension) Paternal Grandmother Dementia Surgical History: Surgical History (Last Updated 12/22/20 @ 10:42 by Elie Barrett) History of cardiac radiofrequency ablation Social History: Social History (Last Updated 05/28/21 @ 14:33 by Dora Jacobs) Alcohol History: Alcohol intake: former Alcohol History Details: Alcohol intake frequency: does not drink Tobacco History: Patient Tobacco Use Status: Never used Tobacco Substance Use History: Use of substances other than those prescribed or required for medical reasons : No Home Medications and Allergies Home Medications Medication Instructions Recorded Confirmed Type escitalopram oxalate 1 tab PO QAM 05/28/21 05/28/21 History multivitamin 1 tab PO DAILY 05/28/21 05/28/21 History trazodone 1 tab PO BEDTIME PRN 05/28/21 05/28/21 History Allergies Allergy/AdvReac Type Severity Reaction Status Date / Time hydrocodone [HYDROCODONE] Allergy Mild HIVES Verified 03/31/21 11:07 bee pollen [BEE STINGS] Allergy Unknown UNKNOWN Verified 03/31/21 11:07 hydrocodone Allergy Unknown hives Uncoded 03/31/21 11:07 Physical Exam Vital signs: Vital Signs Temp 97.4 F 05/28/21 14:25 Pulse 74 05/28/21 14:25 Resp 14 05/28/21 14:25 BP 119/57 L 05/28/21 14:25 Pulse Ox 98 05/28/21 14:25 Intake & Output 05/27/21 05/28/21 05/28/21 18:59 06:59 18:59 Other: Weight 79.3 kg [place]ternut Weight in Grams 16395 Weight 79.3 kg - Constitutional Present: no acute distress, average body habitus - Routine HEENT Exam Head: Present: normal inspection Eye: Present: PERRL - Routine Neck Exam Present: supple - Routine Respiratory Exam Absent: respiratory distress - Routine Cardiovascular Exam Cardiovascular: Present: S1, S2 Assessment and Plan (1) History of pulmonary embolism Status: Resolved 1. This is a 45-year-old woman with history of pulmonary embolism in her early 30s. As per history it appears to be unprovoked and she had extensive hematological workup as well as cardiac workup in no cause could be found. There is no family history of thromboembolism. Patient herself had 3 successful pregnancies before episode of PE. She was on anticoagulation for 1 and half years before coming off anticoagulation. She has been doing well so far. She is rather nervous about recurrent clot mainly because she remembers being told that she can get a recurrence 10 years later. I have explained to her that risk of recurrent clot is highest in the 1st few years after stopping anticoagulation and that risk decreases with time. She should try to avoid any inciting risk factors such as smoking, obesity, long periods of immobility and hormone use. She was advised about prophylactic anticoagulation perioperatively for her lower extremity surgery that is coming up. We also discussed pros and cons of starting chronic prophylactic anticoagulation and decided to defer as has it has no proven benefit at this time. All her questions were answered to his satisfaction. I thank you very much for this consultation.
--- NOTE | 2021-05-28 15:01 | MHC.HEMONC ---
Pt here for Hem consult with Dr Ospina. Clinical summary updated by Dora Jacobs MA. Provider into see pt. Discharge packet given. Follow up appointment scheduled.
== END | disposition home or self-care (01) ==
LOC: HO.ONC 05-28 14:20
PROVIDERS: PCP Internal Medicine; Referring Provider Internal Medicine Cardiovascular Disease; Visit Provider Internal Medicine
DX: Z86.711 Personal history of pulmonary embolism (principal)
CPT/HCPCS: 99202

== ENCOUNTER 2024-10-13 13:54 | Outpatient (AMB) | payer OTHER, SELFPAY ==
[2024-10-13 13:59] VITALS: BMI 29.9
--- NOTE | 2024-10-13 13:59 | MHC.OFFVIS ---
Vital Signs 10/13/24 13:59 Height 5 ft 6 in Weight 185 lb BMI 29.9 Intake Visit Reasons: NewPro-left hip pain-follow up Intake Note: Rupesh is a 48 year old female who presents today as a new patient with complaints of progressively worsening low back pain which radiates down to her left foot as well as left thigh and hip pain. The patient states that several years ago she underwent low back surgery by Dr. Philip. The patient states that she got only mild relief from that surgery. Since that time her back pain, left leg weakness and left leg numbness have gotten worse in spite of continued non operative treatments. She has tried Tylenol and anti-inflammatory medicines which gave her minimal relief. She has also done physical therapy which aggravated her symptoms. I last evaluated the patient on 10/07/2023 with complaints of progressively worsening low back pain. The patient states that over the last 12 months her symptoms have gotten progressively worse. She has failed the last 6 weeks of conservative treatment which has consisted of Tylenol, anti-inflammatory medicines, topical creams and physical therapy exercises. At this point her low back pain and weakness or interfering with her activities of daily living and her ability to sleep well through the night. Allergies wasp Allergy (Severe, Uncoded 10/13/24 13:59) Anaphylaxis hydrocodone Allergy (Intermediate, Uncoded 10/13/24 13:59) hives Hydrocodone-Ibuprofen Allergy (Unknown, Uncoded 10/13/24 13:59) Hives Medication List - Last Reconciled 10/13/24 by Guy Andino MD albuterol sulfate 90 mcg/actuation (ProAir HFA) 2 puffs inhalation QID PRN cephalexin 500 mg PO QID 7 days methylprednisolone (Medrol (Scott)) PO PER PKG DIR nabumetone 500 mg PO BID valacyclovir 1,000 mg PO BID zolpidem (Ambien) 5 mg PO BEDTIME PRN PFSH Medical History Herniated disc Anxiety Asthma Cervical ca Pulmonary embolism Surgical History History of back surgery History of cardiac radiofrequency ablation Family History Maternal Uncle Prostate cancer Maternal Grandfather Stroke Paternal Grandfather Lung cancer Paternal Aunt Stomach cancer Maternal Grandmother Heart attack Dementia Father Diabetes HTN (hypertension) Maternal Uncle HTN (hypertension) Maternal Uncle HTN (hypertension) Paternal Grandmother Dementia Social History Alcohol intake: former Patient Tobacco Use Status: Never used Tobacco Physical Exam Vital Signs: BMI result Body Mass Index 29.9 Const Other: Well-nourished well-developed very friendly female awake alert and oriented x3 in no acute distress Back/Spine/Pelvis Other: Low back examination shows left-sided paraspinal muscle tenderness, pain with range of motion, positive straight leg raise test on the left at 70 degrees, 4/5 strength with testing of her left hip flexors and knee extensors when compared to 5/5 strength on her right side Results Reviewed Results Reviewed: X-rays of the patient's lumbar spine show mild to moderate diffuse degenerative disc disease, no acute bony abnormalities X-rays of the patient's left hip show mild diffuse joint space narrowing, no acute bony abnormalities Assessment & Plan Assessment & Plan (1) Low back pain radiating to left leg: Code(s): M54.50 - Low back pain, unspecified; M79.605 - Pain in left leg Category: Medical Plan Ms. Hicks presents with progressively worsening low back pain which radiates down her left leg as well as associated left leg weakness and numbness most likely due to lumbar stenosis versus a disc herniation. Thus, I will send the patient for an MRI of her lumbar spine for further evaluation. I will call her by phone once the MRI results are available. She will call me prior to that time should her symptoms worsen in any way. Feel free to call me at any time should questions regarding her orthopedic management arise. I spent 22 minutes in reviewing the patient's records and imaging studies, seeing the patient and documenting in the medical record. Orders: Orders MR lumbar spine wo con 10/13/24 M54.50 - Low back pain, unspecified, M79.605 - Pain in left leg Medications: New tramadol 50 mg PO Q8H PRN 60 tabs 0RF pain Coding Level of Care Code Est Pt Level 3 (62560) Complex EM visit Add On G2211 Diagnoses Low back pain radiating to left leg M54.50; M79.601
== END 2024-10-13 14:46 | disposition home or self-care (01) ==
PROVIDERS: PCP Internal Medicine; Visit Provider Orthopaedic Surgery
DX: M54.50 Low back pain, unspecified (principal); M79.605 Pain in left leg
CPT/HCPCS: 99213; G2211

== ENCOUNTER → 2024-10-13 13:54 | Outpatient (BNVA) | payer OTHER, SELFPAY | PROVIDERS: PCP Internal Medicine; Visit Provider Orthopaedic Surgery ==

== ENCOUNTER → 2024-11-19 09:55 | Outpatient (BNV) | payer OTHER, SELFPAY | PROVIDERS: PCP Internal Medicine; Visit Provider Radiology Diagnostic Radiology | DX: M43.26 Fusion of spine, lumbar region (principal); M51.06 Intervertebral disc disorders with myelopathy, lumbar region | CPT/HCPCS: 72148 ==

== ENCOUNTER 2024-11-19 10:04 | Outpatient (REF) | payer OTHER, SELFPAY ==
--- NOTE | ~2024-11-19 | MR_ITS ---
CLINICAL HISTORY: M54.50 - Low back pain, unspecified Lumbar MRI without contrast. Comparison: Lumbar x-rays 03/31/2021, 02/08/2021 Findings: Interval L5-S1 discectomy and intervertebral disc grafting with resultant metal induced susceptibility artifact. Suspect anterior low profile fusion although assessment limited by artifact. L2 greater than L3 hemangiomas. Otherwise normal vertebral body height, marrow signal and alignment. Conus normal terminating opposite L1. T12-L1: Normal disc level. L1-2: Normal disc level. L2-3: Normal disc level. L3-4: Mild partial disc desiccation and slight disc bulge. No significant mass effect. Otherwise normal disc level. L4-5: Partial disc desiccation slight disc bulge. More focal right foraminal protrusion and annular fissuring. No central or lateral canal narrowing. Patent L4 foramina. Surgical changes L5-S1. No mass effect on the thecal sac. Patent L5 foramina. No acute appearing abnormality of the paraspinal soft tissues. Impression: Interval surgical changes L5-S1. No mass effect on the thecal sac. Partial disc desiccation with slight bulge and small right foraminal disc protrusion at L4-5 with fissuring of the posterior annulus. No apparent mass effect on the exiting right L4 nerve root. Disc level otherwise normal. Slight bulge at L 3 4 without mass effect. Remaining disc levels are normal. This document has been electronically signed by: Grant Lima MD on 11/21/2024 10:21:01
== END 2024-11-19 10:05 | disposition home or self-care (01) ==
LOC: HO.MRI 10:04
PROVIDERS: PCP Internal Medicine; Visit Provider Orthopaedic Surgery
DX: M54.50 Low back pain, unspecified (principal); M79.605 Pain in left leg
CPT/HCPCS: 72148

== ENCOUNTER 2024-11-29 13:31 | Outpatient (AMB) | payer OTHER, SELFPAY ==
--- NOTE | 2024-11-29 13:32 | A.SPINEOV_ITS ---
Vital Signs 11/29/24 13:43 Height 5 ft 6 in Weight 180 lb BMI 29.0 Intake Visit Reasons: LBP Intake Note: Ms. Hicks is here today c/o low back pain. 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 Andino, Thank you for referring Rupesh to our office today. She is a pleasant 49-year-old female comes in today with a chief complaint of low back pain and shooting pains down her left lower extremity. When describing the pain she states that it starts in her low back shoots over her left hip down the side of her left leg and terminates near the left lateral gastrocnemius. She states that she was in ?constant pain? throughout the day. She does report some associated numbness near the left lateral gastrocnemius. She reports this pain has been ongoing for the last 10 years. She previously had a L5-S1 ALIF [place] [address] Schwartz in an effort to address this pain. Unfortunately after surgery she felt like she was just in more pain, and that the problem never fully resolved. She comes in today suffering from the same pain she had prior to surgery in 2020. She reports that she has attempted physical therapy, cortisone injections, Tylenol, ibuprofen, and pain creams without significant relief of symptoms. She is currently taking 50 mg tramadol daily to help mitigate her pain. PMH: Insomnia, asthma, history of L5-S1 ALIF in 2020. Tubal ligation. Social hx: The patient does not smoke, reports no substance use. Medications: See [employer] Risk list. Allergies: Hydrocodone. Physical exam: The patient has 5/5 strength in her upper and lower extremities. She ambulates well and rises from seated position without difficulty. She has a nonantalgic non spastic gait. Her sensation is grossly intact. Her reflexes are 2+ intact. (-) Chase's, (-) clonus, (-) bilateral straight leg raise (-) Eben's, (-) gaenslens, (-) SI joint compression test, (+) left-sided Howard finger test. Imaging review: MRI of the lumbar spine completed here at [facility] shows evidence of previous L5-S1 alif with stand-alone cage. There is no significant central canal or foraminal stenosis. No significant disc herniations or disc bulges. Impression: Rupesh is a pleasant 49-year-old female comes in today with a chief complaint of low back pain and shooting pains down her left lower e xtremity. She reports this has been ongoing for the last 10 years since before her L5-S1 lumbar fusion surgery completed by Dr. Kothari at [facility] in [place]. Unfortunately after the surgery she feels her pain was worse, not better. She has attempted many forms of conservative treatment an effort to help mitigate this pain. At 1st I was thinking that she may have a left-sided SI joint dysfunction as she has a history of 3 natural childbirths and would fit this picture, however she would primarily have severe low back pain, and would not have as much radicular pain which he reports is the worst of the pain that she has. I was also considering obtaining EMG to see if she had permanent nerve damage from her injury prior to surgery, however she states she has had these completed as well in the past and they were always unremarkable. I do not see anything surgically that can be done to help fix her pain. I believe that the patient should consult with our colleagues in physiatry/pain management to discuss the possibility of a spinal cord stimulator as a modality of treating her pain. It sounds most to me like she has nerve damage on the left side that never fully healed, despite surgical attempts to decompress this area and stabilize it. The patient understands and agrees to this plan, I will place the referral. Thank you for allowing us to care for your patient. The total time spent with this visit with this patient was 45 minutes reviewing history, physical exam, MRI imaging review, and implementation of treatment plan or further diagnostic testing Madhav Gomes MD,PhD [facility] Orders: Referrals Pain Management Referral M54.16 - Radiculopathy, lumbar region Coding Level of Care Code New Pt Level 4 (18972) Diagnoses Lumbar radiculopathy M54.16
[2024-11-29 13:43] VITALS: BMI 29.0
--- OUTSIDE RECORDS SUMMARY | 2024-11-29 14:31 | XMS_ITS | Clinical Summary ---
Author Organization [facility] ity Address [address] [place] [address] Care Team Providers Care Dietitian Teacher Name Role Phone Unavailable Primary Care Provider Unavailabl e Social History Tobacco Use Types Packs/Day Years Used Date Smoking Tobacco: Never Assessed Sex and Gender Information Value Date Recorded Sex Assigned at Not on file Gender Identity Not on file Sexual Orientation Not on file Plan of Treatment Health Maintenance Due Date Last Done Comments Breast Cancer Screening 1975 DTaP,Tdap,and Td Vaccines (1 - Tdap) 1996 Hepatitis B Vaccines (1 of 3 - 19+ 3-dose series) 1996 Cervical Cancer Screening: P ap Smear 1998 COVID-19 Vaccine (2023-2 5 season) 2024 Influenza Vaccine (#1) 2024 Colorectal Cancer Screening: Colonoscopy 08/11/2024 Depression Screening 08/11/2024 HIV Screening 08/11/2024 Hepatitis C Screening 08/11/2024 Social Influencers of Health Screening 08/11/2024 HIB Vaccines Aged Out No longer eligi ble based on patient's age to complete this topic HPV Vaccines Aged Out No longer eligi ble based on patient's age to complete this topic Hepatitis A Vaccines Aged Out No long er eligible based on patient's age to complete this topic IPV Vaccines Aged Out No longer eligi ble based on patient's age to complete this topic MMR Vaccines Aged Out No longer eligi ble based on patient's age to complete this topic Meningococcal ACWY Vaccine Aged Out N o longer eligible based on patient's age to complete this topic Pneumococcal Vaccine: Pediat rics (0 to 5 Years) and At-Risk Patients (6 to 64 Years) Aged Out No longer eligible b ased on patient's age to complete this topic RSV Immunization Patients Un chevy 20 months Aged Out No longer eligible b ased on patient's age to complete this topic Varicella Vaccines Aged Out No longer eligible based on patient's age to complete this topic
--- OUTSIDE RECORDS SUMMARY | 2024-11-29 14:32 | XMS_ITS | Clinical Summary ---
Author Organization [facility], Address [address] [place] [address] Phone Care Team Providers Care Kick Boxer Name Role Phone Unavailable Primary Care Provider Unavailabl e Allergies Active Allergy Reactions Criticality Noted Date Comments Hydrocodone 10/02/2021 Medications pregabalin (LYRICA) 150 MG capsule Take 150 mg by mouth in the morning and 150 mg in the evening. Active Social History Tobacco Use Types Packs/Day Years Used Date Smoking Tobacco: Never Assessed Comments Unknown Sex and Gender Information Value Date Recorded Sex Assigned at Not on file Legal Sex Female 10:36 AM EDT Gender Identity Not on file Sexual Orientation Not on file Last Filed Vital Signs Vital Sign Reading Time Taken Comments Blood Pressure 123/89 02/06/2022 11:32 AM EDT Pulse 89 02/06/2022 11:32 AM EDT Temperature 36.8 ??C (98.2 ??F) 02/06/2022 11:32 AM E DT Respiratory Rate - - Oxygen Saturation 99% 12/12/2021 2:00 PM EST Inhaled Oxygen Concentration - - Weight 76.2 kg (168 lb) 12/12/2021 2:00 PM EST Height 167.6 cm (5' 6 ) 12/12/2021 2:00 PM EST Body Mass Index 27.12 12/12/2021 2:00 PM EST Plan of Treatment Health Maintenance Due Date Last Done Comments Hepatitis B Vaccine (1 of 3 - 19+ 3-dose series) 1996 Influenza Vaccine (#1) 2024 Pneumococcal Vaccine: Pediat rics (0 to 5 Years) and At-Risk Patients (6 to 64 Years) Aged Out No longer eligi ble based on patient's age to complete this topic Insurance [place]ICAID [id number]
== END 2024-11-29 14:10 | disposition home or self-care (01) ==
PROVIDERS: PCP Internal Medicine; Referring Provider Orthopaedic Surgery; Visit Provider Physician Assistant
DX: M54.16 Radiculopathy, lumbar region (principal)
CPT/HCPCS: 99204

== ENCOUNTER 2025-01-12 13:46 | Outpatient (AMB) | payer OTHER, SELFPAY ==
--- NOTE | 2025-01-12 13:47 | A.OFFVIS_ITS ---
Vital Signs 01/12/25 13:48 Height 5 ft 6 in Weight 180 lb 4 oz BMI 29.1 BP 133/66 Blood Pressure Location Lt brachial Position Sitting Pulse 73 Pulse Source Pulse Oximeter Pulse Oximetry (%) 97 Oxygen Delivery Method Room Air Intake Visit Reasons: Radiculopathy, lumbar reg/last seen 2017 Allergies wasp Allergy (Severe, Uncoded 01/12/25 13:50) Anaphylaxis hydrocodone Allergy (Intermediate, Uncoded 01/12/25 13:50) hives Hydrocodone-Ibuprofen Allergy (Unknown, Uncoded 01/12/25 13:50) Hives HPI Comments Details: Rupesh Is very pleasant 49 years old female who presents in my office with complains on pain in the lower back mostly on the right side with radiation of the pain down to the left lower extremity sensations of numbness in the left lower extremity as well as pain on the left side of her lower lumbar spine. She also complains on pain in the neck and swelling on the right side of the neck however this complaint was left alone since patient wanted to address her lower back pain primarily. She reports that this pain started 10 years ago she fell in [place], she was seen by a surgeon by that time and offered the surgery. However unfortunately she did not go for surgery later on recently she was subject of [facility]. She reported that surgery only aggravated her pain. No pain relief she felt. 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 Cold applications weather changes in movements aggravate her pain. Application of heat make her pain slightly better. In terms of tissue damage he reports her pain as tingling stinging, dull, hurting, heavy, tiring, exhausting, spreading, radiating, piercing. She had extensive courses of physical therapy last time she had physical therapy 1 year ago. It aggravated her pain significantly she is very negative about going back to physical therapy. She had an MRI of the lumbar spine results of which dictated as below. She had multiple injections in the past including injections in the neck and injections in her elbows however she never had injections for her lower back pain. Her past medical history significant for history of ventricular fibrillation which was treated with radiofrequency ablation of pathological pathway in her heart she is no longer on blood thinners. She suffers from asthma and she has small kidney stones. She had surgeries above in October of 2021, she is prescribed tramadol 50 mg q.d. for her pain. She denies smoking cigarettes denies drinking alcohol she drinks coffee or caffeinated beverages she denies recreational drugs. ON LICENSE OF [facility] Medical History (Updated 01/12/25 @ 14:44 by Jesus Rollins MD) Herniated disc Anxiety Asthma Cervical ca Pulmonary embolism Surgical History (Updated 01/12/25 @ 13:51 by Mirtha Garrett CMA) History of tubal ligation History of back surgery History of cardiac radiofrequency ablation Family History Maternal Uncle Prostate cancer Maternal Grandfather Stroke Paternal Grandfather Lung cancer Paternal Aunt Stomach cancer Maternal Grandmother Heart attack Dementia Father Diabetes HTN (hypertension) Maternal Uncle HTN (hypertension) Maternal Uncle HTN (hypertension) Paternal Grandmother Dementia Social History Alcohol intake: former Patient Tobacco Use Status: Never used Tobacco Review of Systems Const Reports no additional complaints ENT Reports Normal hearing present Card Reports as per HPI Resp Reports as per HPI GI Reports no additional complaints Reports as per HPI Musc Reports as per HPI Neuro Reports Normal hearing present, Denies Abnormal speech present, Denies confusion and Denies Sensory deficit (Neuro) Psych Reports no additional complaints and Denies confusion Physical Exam Vital Signs: Last Vital Signs Pulse 73 01/12/25 13:48 BP 133/66 01/12/25 13:48 Pulse Ox 97 01/12/25 13:48 Oxygen Delivery Method Room Air 01/12/25 13:48 BMI result Body Mass Index 29.1 Const General: no acute distress; No confusion Orientation/consciousness: patient oriented x3 and No confusion Eyes General: appearance normal, both eyes and all related structures Pupils: Equal, round and reactive pupils present EOM: EOMs intact bilaterally Neck Neck: Yes full ROM Chest Chest palpation & inspection: normal inspection of the chest Resp Effort & Inspection: normal respiratory effort, able to speak in complete sentences, normal respiratory pattern, no audible wheezes and no cough Cardio Jugular venous distension: no JVD GI Inspection: Yes normal to inspection Back/Spine/Pelvis Other: Able to stand on bilateral tiptoes and bilateral heels without difficulty demonstrating normal strength of bilateral lower extremities. Rahul test is positive on the left, Gaenslen test is positive on the left, Stinchfield test is positive on the left. SLR is also positive on the left and the Lasegue test also positive on the left. Flexing forward aggravates her pain and flexing backwards does not affects her pain. Loading test at the best equivocal on the left and negative on the right. Valsalva maneuver is positive on the left in the projection of her pain in the left side of the back. Neuro General: patient oriented x3, gait normal and No confusion Cranial nerves: Yes CN's II-XII intact bilaterally, Yes Equal, round and r eactive pupils present, Yes Normal hearing present and Yes Ability to bilaterally elevate shoulders present Speech: No Abnormal speech present Gait exam (Neuro): Normal gait present Motor exam (neuro): 5/5 motor strength present throughout Sensory Exam: No Sensory deficit (Neuro) Extrem General: No pedal edema Psych Speech and movement: Normal speech and movement present Affect: normal affect Attitude: cooperative Thought process: Normal thought process present Thought content: Normal thought content present Insight: Good insight present (Psych) Judgement: Good judgement present (Psych) Results Reviewed Results Reviewed: CLINICAL HISTORY: M54.50 - Low back pain, unspecified Lumbar MRI without contrast. Comparison: Lumbar x-rays 03/31/2021, 02/08/2021 Findings: Interval L5-S1 discectomy and intervertebral disc grafting with resultant metal induced susceptibility artifact. Suspect anterior low profile fusion although assessment limited by artifact. L2 greater than L3 hemangiomas. Otherwise normal vertebral body height, marrow signal and alignment. Conus normal terminating opposite L1. T12-L1: Normal disc level. L1-2: Normal disc level. L2-3: Normal disc level. L3-4: Mild partial disc desiccation and slight disc bulge. No significant mass effect. Otherwise normal disc level. L4-5: Partial disc desiccation slight disc bulge. More focal right foraminal protrusion and annular fissuring. No central or lateral canal narrowing. Patent L4 foramina. Surgical changes L5-S1. No mass effect on the thecal sac. Patent L5 foramina. No acute appearing abnormality of the paraspinal soft tissues. Impression: Interval surgical changes L5-S1. No mass effect on the thecal sac. Partial disc desiccation with slight bulge and small right foraminal disc protrusion at L4-5 with fissuring of the posterior annulus. No apparent mass effect on the exiting right L4 nerve root. Disc level otherwise normal. Slight bulge at L 3 4 without mass effect. Remaining disc levels are normal. Assessment & Plan Assessment & Plan (1) Postlaminectomy syndrome: Code(s): M96.1 - Postlaminectomy syndrome, not elsewhere classified Category: Medical (2) Lumbar radiculopathy: Code(s): M54.16 - Radiculopathy, lumbar region Category: Medical (3) Sacroiliitis: Code(s): M46.1 - Sacroiliitis, not elsewhere classified Category: Medical (4) Chronic left sacroiliac joint pain: Code(s): M53.3 - Sacrococcygeal disorders, not elsewhere classified; G89.29 - Other chronic pain Category: Medical (5) Chronic pain syndrome: Code(s): G89.4 - Chronic pain syndrome Category: Medical Plan differential diagnosis of this patient would be in between the residual radicular pain syndrome /postlaminectomy syndrome radiculopathy of the left lower extremity versus left sacroiliac joint pain and sacroiliitis. I offered the patient to perform diagnostic sacroiliac joint injection to see how this will affect her pain. the patient will be scheduled for this procedure, she is not very eager to go for the injection if she will decide not to go I was told she will cancel the appointment with injection and schedule appointment with me. Possibility to inject left L5-S1 transforaminal epidural space exists to this patient if sacroiliac joint injection results in no pain improvement. If those 2 procedures will result in no pain improvement I will consider spinal cord stimulator. I gave today the patient the brochure from [facility], she will read the brochure and she will call [facility] to discuss potential procedure. If she decides to go for the procedure she has a psychiatrist who potentially can perform psychological evaluation for us before the trial of [facility]. Alternatively she can not be scheduled with [facility] psychology to get psychological evaluation done. Patient Instructions: I here by testify that I spent 48 minutes in conversation with this patient as well as evaluating her prior records, evaluating her prior diagnostic images, planning her care and organizing this note. Coding Level of Care Code New Pt Level 4 (30912) Diagnoses Postlaminectomy syndrome M96.1 Lumbar radiculopathy M54.16 Sacroiliitis M46.1 Chronic left sacroiliac joint pain M53.3; G89.29 Chronic pain syndrome G89.4
[2025-01-12 13:48] VITALS: BP 133/66; PULSE 73; O2SAT 97; BMI 29.1
--- OUTSIDE RECORDS SUMMARY | 2025-01-12 17:25 | XMS_ITS | Clinical Summary ---
Author Organization [facility], Address [address] [place] [address] Phone Care Team Providers Care Toy Maker Name Role Phone Unavailable Primary Care Provider [...] age to complete this topic Insurance [place]ICAID [place]
--- OUTSIDE RECORDS SUMMARY | 2025-01-12 17:25 | XMS_ITS | Clinical Summary ---
Author Organization [facility] Address [address] [place] [address] Care Team Providers Care Periodontist Name Role Phone Unavailable Primary Care Provider Unavailabl e Social History Tobacco Use Types Packs/Day Years Used Date Smoking Tobacco: Never Assessed Comments Unknown Sex and Gender Information Value Date Recorded Sex Assigned at Not on file Legal Sex Female 11:03 PM EST Gender Identity Not on file Sexual Orientation [...] patient's age to complete this topic Meningococcal B Vacine Aged Out No lo nger eligible based on patient's age to complete [...]
== END 2025-01-12 14:26 | disposition home or self-care (01) ==
LOC: HO.PMC 13:47
PROVIDERS: PCP Physician Assistant Medical; Referring Provider Physician Assistant; Visit Provider Anesthesiology
DX: M96.1 Postlaminectomy syndrome, not elsewhere classified (principal); M54.16 Radiculopathy, lumbar region; M46.1 Sacroiliitis, not elsewhere classified; M53.3 Sacrococcygeal disorders, not elsewhere classified; G89.29 Other chronic pain; G89.4 Chronic pain syndrome
CPT/HCPCS: 99204

== ENCOUNTER → 2025-01-12 13:46 | Outpatient (BNVA) | payer OTHER, SELFPAY | PROVIDERS: PCP Physician Assistant Medical; Referring Provider Physician Assistant; Visit Provider Anesthesiology | DX: G89.4 Chronic pain syndrome (principal); K21.9 Gastro-esophageal reflux disease without esophagitis; R53.83 Other fatigue; F43.21 Adjustment disorder with depressed mood; J45.909 Unspecified asthma, uncomplicated; M46.1 Sacroiliitis, not elsewhere classified; M54.16 Radiculopathy, lumbar region; M96.1 Postlaminectomy syndrome, not elsewhere classified; M53.3 Sacrococcygeal disorders, not elsewhere classified; Z91.89 Other specified personal risk factors, not elsewhere classified; Z86.711 Personal history of pulmonary embolism | CPT/HCPCS: 96127; 99202; 99212 ==

== ENCOUNTER 2025-01-12 15:20 | Outpatient (AMB) | payer OTHER, SELFPAY ==
--- NOTE | 2025-01-12 15:41 | MHC.PC.OV ---
Vital Signs 01/12/25 15:47 Height 5 ft 6.54 in Weight 180 lb BMI 28.6 BP 108/68 Blood Pressure Location Lt brachial Position Sitting Respiration 12 Pulse 64 Pulse Source Pulse Oximeter Pulse Oximetry (%) 95 Oxygen Delivery Method Room Air Intake Visit Reasons: est care Intake Note: New patient visit. Needs inhalers for allergies. Drum Drier Operator Required: No Allergies wasp Allergy (Severe, Uncoded 01/12/25 15:41) Anaphylaxis hydrocodone Allergy (Intermediate, Uncoded 01/12/25 15:41) hives Hydrocodone-Ibuprofen Allergy (Unknown, Uncoded 01/12/25 15:41) Hives Tobacco use date assessed: 01/12/25 Dental Screening Dental Screen Date: 01/12/25 Did you have a dental visit in the last 12 months?: Yes Did you have a dental problem in the last 6 months where you did not have access to dental care?: No Was dental information given to patient?: Patient has dentist HPI HPI Comments History of Present Illness Details This is a 49-year-old female with a past medical history of chronic pain, acid reflux, PE 2008 presenting for a new patient visit. She transferred from Dr. Park. She has chronic pain, and she was seen at the neuro spine clinic and by Dr. Patrick and Dr. Andino. She has lower back shooting pains down her left lower extremity for the past 10 years since before L5-S1 lumbar fusion surgery. She attempted many forms of conservative management to mitigate pain. 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 She has been seen by pain management. They are going to try injections and then proceed with a spinal cord stimulator if it is ineffective. She has tried gabapentin, Tylenol, NSAIDs. Her current regimen is tramadol 50 mg every 8 hours as needed for pain. She does feel depressed about her symptoms. She has difficulty sleeping. She also reports having trigger injections for degenerative disc disease in her cervical spine with Dr. Patrick. She filed for disability, and she really appealed last year. She endorses a history of asthma treated with albuterol as needed. She endorses a cough in the morning and intermittent wheezing in the morning as well. No shortness a breath, hemoptysis, fevers or chills. She tried Claritin as she does have an allergy to dust. She is constantly tired which she attributes to chronic pain and situational depression, but she would like to have blood work drawn. ROS: Constitutional: No fevers, chills or night sweats. No unexplained weight loss. Respiratory: see HPI Cardiovascular: No chest pain Neurologic: No headache, dizziness, syncope Skin: No rash Physical exam: Constitutional: Alert, in no distress. Neck: Supple, Full range of motion. No lymphadenopathy. Respiratory: Clear to auscultation. Cardiovascular: S1 S2 regular. No murmurs Neurologic: No focal neurological deficits. Extremities: Warm and well perfused. No clubbing, cyanosis or edema. Psychiatric: Normal mood and affect [facility] Medical History (Updated 01/13/25 @ 14:05 by TAY Smith) Situational depression Allergy-induced asthma Fatigue Herniated disc Anxiety Asthma Cervical ca Pulmonary embolism Surgical History (Updated 01/12/25 @ 13:51 by Mirtha Garrett [facility]) History of tubal ligation History of back surgery History of cardiac radiofrequency ablation Family History (Updated 01/12/25 @ 16:15 by Patty Fournier CMA) Maternal Uncle Prostate cancer Maternal Grandfather Stroke HTN (hypertension) High cholesterol Paternal Grandfather Lung cancer HTN (hypertension) High cholesterol Paternal Aunt Stomach cancer Maternal Grandmother Heart attack Dementia HTN (hypertension) High cholesterol Cardiovascular disease Father Diabetes HTN (hypertension) High cholesterol Maternal Uncle HTN (hypertension) Maternal Uncle HTN (hypertension) Paternal Grandmother Dementia HTN (hypertension) High cholesterol Son FH: mental illness Brother Substance abuse Mother Thyroid disorder Social History (Updated 01/12/25 @ 16:11 by Patty Fournier CMA) Housing: House Alcohol intake: former Patient Tobacco Use Status: Never used Tobacco e-Cigarette/Vaping Use: Never Used service: No Current occupational status: employed 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 1. Little interest or pleasure in doing things: several days 2. Feeling down, depressed, or hopeless: several days 3. Trouble falling or staying asleep, or sleeping too much: nearly every day 4. Feeling tired or having little energy: more than half the days 5. Poor appetite or overeating: not at all 6. Feeling bad about yourself - or that you are a failure or have let yourself or your family down: not at all 7. Trouble concentrating on things, such as reading the newspaper or watching television: several days 8. Moving or speaking so slowly that other people could have noticed. Or the opposite - being so fidgety or restless that you have been moving around a lot more than usual: more than half the days 9. Thoughts that you would be better off or of hurting yourself in some way: not at all Total score: 10 Depression Screening Interpretation: Positive Depression Screening Follow-up: New Medication prescribed Depression Screening Done: Yes 36850 - PHQ-9 Billing: Yes Source: Developed by Drs. Ham Oro, Cecilia Curran, Devang Lopez and colleagues, with an educational comfort from [employer]. Thrive Questionnaire Date Thrive assessed: 01/12/25 I am a: Patient What is your living situation today?: I have a steady place to live Within the past 12 months, did the food you bought not last and you didn't have the money to get more?: Never true Within the past 12 months, did you worry whether your food would run out before you got money to buy more?: Never true Do you have trouble paying for medicines?: No Do you have trouble getting transportation to medical appointments?: No Do you have trouble paying your heating and electricity bill?: No Do you have trouble taking care of your child, family member or friend?: No Do you have trouble with day-to-day activities such as bathing, preparing meals, shopping, managing finances, etc.?: Yes Are you currently unemployed and looking for a job?: No Are you interested in more education?: I choose not to answer this question Please select the resources that you would like help with: None Currently or been in a relationship where the following occur: No concerns reported THRIVE Score: 0 AUDIT C Alcohol Use Questionnaire (AUDIT-C) 1. How often do you have a drink containing alcohol?: Never Total Score: 0 YOUNG-7 AMB Questionnaire YOUNG-7 Date YOUNG - 7 assessed: 01/12/25 Feeling nervous, anxious, or on edge: 1 = Several days Not being able to stop or control worryin = Several days Worrying too much about different things: 1 = Several days Trouble relaxin = More than half the days Being so restless that it is hard to sit still: 2 = More than half the days Becoming easily annoyed or irritable: 2 = More than half the days Feeling afraid as if something awful might happen: 0 = Not at all Total YOUNG-7 score (0-4 normal; 5-9 mild; 10-14 moderate; 15-21 severe): 9 Source: Developed by Drs. Ham Oro, Cecilia Curran, Devang Lopez and colleagues, with an educational comfort from [employer]. YOUNG-7 Assessment Billing YOUNG-7 Assessment Tool: YOUNG-7 Assessment 31604 Physical exam (Primary Care) Vital Signs: Last Vital Signs Pulse 64 01/12/25 15:47 Resp 12 01/12/25 15:47 BP 108/68 01/12/25 15:47 Pulse Ox 95 01/12/25 15:47 Oxygen Delivery Method Room Air 01/12/25 15:47 BMI result Body Mass Index 28.6 Tobacco/Smoking Status: Tobacco use Status Tobacco use date assessed 01/12/25 01/12/25 15:50 Patient Tobacco Use Status Never used Tobacco 01/12/25 16:11 e-Cigarette/Vaping Use Never Used 01/12/25 16:11 PHQ-9: PHQ-9 Score PHQ-9: Total score 10 01/12/25 16:18 Depression Screening Interpretation: Positive Depression Screening Follow-up: New Medication prescribed Thrive Assessment: Date of Thrive Assessment Date Thrive assessed 01/12/25 01/12/25 16:16 Currently or been in a relationship where the following occur: No concerns reported Coding Level of Care Code Est Pt Level 4 (21913) Complex EM visit Add On G2211 Diagnoses Fatigue, unspecified type R53.83 Fatigue type: unspecified Chronic pain syndrome G89.4 Allergy-induced asthma J45.909 Situational depression F43.21 Additional Codes YOUNG-7 Assessment Billing - YOUNG-7 Assessment Tool: YOUNG-7 Assessment 65092 ([id number]) PHQ-9 - 94264 - PHQ-9 Billing: Yes ([id number]) Assessment & Plan Assessment & Plan (1) Fatigue: Code(s): R53.83 - Other fatigue Category: Medical Qualifiers: Fatigue type: unspecified Qualified Code(s): R53.83 - Other fatigue Plan: This is probably multifactorial. She has disrupted sleep due to chronic pain, chronic pain itself and situational depression. Check labs. (2) Chronic pain syndrome: Code(s): G89.4 - Chronic pain syndrome Category: Medical Plan: Followed by pain management, Orthopedics, and she was seen by the neuro spine clinic but no further surgical intervention is warranted. Patient will start a trial of Cymbalta 30 mg daily. Side effects and black box warning reviewed. Discussed there is a potential drug interaction between this and tramadol. Patient says she has only been taking tramadol 50 mg at night, and she uses this as needed. Patient denies history of seizures. (3) Allergy-induced asthma: Code(s): J45.909 - Unspecified asthma, uncomplicated Category: Medical Plan: Trial of Singulair 10 mg at bedtime. Continue albuterol 2 puffs every 4 hours as needed for coughing, wheezing or shortness of breath. Discuss obtaining baseline chest x-ray and PFT at follow up visit. (4) Situational depression: Code(s): F43.21 - Adjustment disorder with depressed mood Category: Medical Plan: See notes above. Patient will try Cymbalta. Declines referral to therapist. Plan Follow up in 4 weeks. Orders: Orders Basic Metabolic Panel 01/12/25 M46.1 - Sacroiliitis, not elsewhere classified, R53.83 - Other fatigue Vitamin B12 01/12/25 M46.1 - Sacroiliitis, not elsewhere classified, R53.83 - Other fatigue, Z91.89 - Other specified personal risk factors, not elsewhere classified TSH reflex Free T4 01/12/25 M46.1 - Sacroiliitis, not elsewhere classified, R53.83 - Other fatigue Vitamin D 25-OH (D2 and D3) 01/12/25 M46.1 - Sacroiliitis, not elsewhere classified, M85.80 - Other specified disorders of bone density and structure, unspecified site, R53.83 - Other fatigue Complete Blood Count no Diff 01/12/25 M46.1 - Sacroiliitis, not elsewhere classified, R53.83 - Other fatigue IRON PROFILE 01/12/25 M46.1 - Sacroiliitis, not elsewhere classified, R53.83 - Other fatigue Medications: New duloxetine 30 mg PO DAILY 90 caps 0RF montelukast 10 mg PO BEDTIME 90 tabs 0RF Changed From albuterol sulfate 90 mcg/actuation (ProAir HFA) 2 puffs inhalation QID PRN To albuterol sulfate 90 mcg/actuation 2 puffs inhalation QID PRN 8.5 grams 0RF shortness of breath or wheezing
[2025-01-12 15:47] VITALS: BP 108/68; PULSE 64; RESP 12; O2SAT 95; BMI 28.6
--- OUTSIDE RECORDS SUMMARY | 2025-01-12 18:58 | XMS_ITS | Clinical Summary ---
Author Organization [facility] Address [address] [place] [address] Care Team Providers Care Software Architect Name Role Phone Unavailable Primary Care Provider [...]
--- OUTSIDE RECORDS SUMMARY | 2025-01-12 18:58 | XMS_ITS | Clinical Summary ---
Author Organization [facility], Address [address] [place] [address] Phone Care Team Providers Care Javascript Front End Developer Name Role Phone Unavailable Primary Care Provider [...] age to complete this topic Insurance MEDICAID [place]
== END 2025-01-12 16:19 | disposition home or self-care (01) ==
LOC: HO.HMCFM 15:21
PROVIDERS: PCP Physician Assistant Medical; Visit Provider Physician Assistant Medical
DX: R53.83 Other fatigue (principal); G89.4 Chronic pain syndrome; J45.909 Unspecified asthma, uncomplicated; F43.21 Adjustment disorder with depressed mood

== ENCOUNTER 2025-01-16 11:14 | Outpatient (REF) | payer OTHER, SELFPAY ==
[2025-01-16 14:25] LABS: Hematocrit 40.5 % (37.0-47.0); Mean Corpuscular HGB Conc 34.6 g/dl (31.0-35.0); Mean Corpuscular Hemoglobin 30.6 pg (27.0-33.0); Mean Corpuscular Volume 88.6 fL (80.0-98.0); Mean Platelet Volume 9.6 fL (9.4-12.3); Platelet Count 270 X10*3/uL (160-400); Red Blood Count 4.57 X10*6/uL (4.20-5.50); Red Cell Distribution Width 12.5 % (11.0-16.0); White Blood Count 4.3 X10*3/uL (4.8-10.8)
[2025-01-16 14:55] LABS: Anion Gap 10 (12-20); Blood Urea Nitrogen 16 mg/dL (9-16); Calcium 8.8 mg/dL (8.4-10.2); Carbon Dioxide 26 mmol/L (22-29); Chloride 110 mmol/L (96-108); Estimated Glomerular Filt Rate > 60; Glucose Random 94 mg/dL (60-115); Iron 124 mcg/dL (30-160); Percent Iron Saturation 39 % (15-50); Potassium 4.2 mmol/L (3.3-5.1); Sodium 142 mmol/L (135-145); Total Iron Binding Capacity 319 mcg/dL (228-428); Unsaturated Iron Binding 195 ug/dL
[2025-01-16 15:09] LABS: TSH reflex Free T4 1.45 uIU/mL (0.32-4.0)
[2025-01-16 15:18] LABS: Vitamin B12 338 pg/mL (200-900)
[2025-01-19 12:33] LABS: Vitamin D 25-OH, D2 <4 ng/mL; Vitamin D 25-OH, D3 11 ng/mL; Vitamin D 25-OH, Total 11 ng/mL (30-100)
== END 2025-01-16 11:15 | disposition home or self-care (01) ==
LOC: HO.WFDLDS 11:14
PROVIDERS: Visit Provider Physician Assistant Medical
DX: Z91.89 Other specified personal risk factors, not elsewhere classified (principal); M46.1 Sacroiliitis, not elsewhere classified; R53.83 Other fatigue; M85.80 Other specified disorders of bone density and structure, unspecified site
CPT/HCPCS: 36415; 80048; 82306; 82607; 83540; 84443; 85027

== ENCOUNTER 2025-01-26 14:22 | Outpatient (AMB) | payer OTHER, SELFPAY ==
--- NOTE | 2025-01-26 14:25 | A.OFFVIS_ITS ---
Vital Signs 01/26/25 14:29 Height 5 ft 6.54 in Weight 180 lb BMI 28.6 Intake Visit Reasons: OV-LT hip pain, Left leg pain Intake Note: Rupesh is a 48 year old female who presents today as a new patient with complaints of progressively worsening low back pain which radiates down to her left foot as well as left thigh and left hip pain. The patient states that several years ago she underwent low back surgery by Dr. Philip. The patient states that she got only mild relief from that surgery. Since that time her back pain, left leg weakness and left leg numbness have gotten worse in spite of continued non operative treatments. She has tried Tylenol and anti-inflammatory medicines which gave her minimal relief. She has also done physical therapy which aggravated her symptoms. I last evaluated the patient on 10/07/2023 with complaints of progressively worsening low back pain. The patient states that over the last 12 months her symptoms have gotten progressively worse. She has failed the last 6 weeks of conservative treatment which has consisted of Tylenol, anti-inflammatory medicines, topical creams and physical therapy exercises. At this point her low back pain and weakness or interfering with her activities of daily living and her ability to sleep well through the night. The patient describes her hip pain as sharp in nature. Most of the pain is located within her left groin. She has seen Dr. Rollins from our pain management department. Allergies wasp Allergy (Severe, Uncoded 01/26/25 14:25) Anaphylaxis hydrocodone Allergy (Intermediate, Uncoded 01/26/25 14:25) hives Hydrocodone-Ibuprofen Allergy (Unknown, Uncoded 01/26/25 14:25) Hives Medication List - Last Reconciled 01/26/25 by Guy Andino MD albuterol sulfate 90 mcg/actuation 2 puffs inhalation QID PRN cholecalciferol (vitamin D3) 1,250 mcg PO QWEEK 12 weeks duloxetine 30 mg PO DAILY montelukast 10 mg PO BEDTIME tramadol 50 mg PO Q8H PRN PFSH Medical History (Updated 01/27/25 @ 07:05 by Guy Andino MD) Decreased white blood cell count Situational depression Allergy-induced asthma Fatigue Herniated disc Anxiety Asthma Cervical ca Pulmonary embolism Surgical History (Updated 01/12/25 @ 13:51 by Mirtha Garrett CMA) History of tubal ligation History of back surgery History of cardiac radiofrequency ablation Family History (Updated 01/12/25 @ 16:15 by Patty Fournier [facility]) Maternal Uncle Prostate cancer Maternal Grandfather Stroke HTN (hypertension) High cholesterol Paternal Grandfather Lung cancer HTN (hypertension) High cholesterol Paternal Aunt Stomach cancer Maternal Grandmother Heart attack Dementia HTN (hypertension) High cholesterol Cardiovascular disease Father Diabetes HTN (hypertension) High cholesterol Maternal Uncle HTN (hypertension) Maternal Uncle HTN (hypertension) Paternal Grandmother Dementia HTN (hypertension) High cholesterol Son FH: mental illness Brother Substance abuse Mother Thyroid disorder Social History (Updated 01/12/25 @ 16:11 by Patty Fournier [facility]) Housing: House Alcohol intake: former Patient Tobacco Use Status: Never used Tobacco e-Cigarette/Vaping Use: Never Used service: No Current occupational status: employed 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 Current occupational exposures/hazards: No Cognitive needs: No Hearing needs: No Vision needs: Yes (glasses) Physical Exam Vital Signs: BMI result Body Mass Index 28.6 Extrem Other: Left hip examination shows decreased range of motion when compared to her right hip, pain with range of motion, increased pain with forward flexion and internal rotation, no tenderness over her bursa Results Reviewed Results Reviewed: X-rays of the patient's left hip show mild diffuse joint space narrowing, no acute bony abnormalities Assessment & Plan Assessment & Plan (1) Labral tear of left hip joint: Code(s): S73.192A - Other sprain of left hip, initial encounter Category: Medical (2) Pain of left lower extremity: Code(s): M79.605 - Pain in left leg Plan Ms. Hicks presents with left hip pain possibly due to a labral tear. Thus, I will send the patient for an MRI arthrogram of her left hip. I will see her back once the MRI is completed to discuss the findings and treatment options. She will follow up with Dr. Rollins as scheduled. Feel free to call me at any time should questions regarding her orthopedic management arise. I spent 20 minutes in reviewing the patient's records and imaging studies, seeing the patient and documenting in the medical record. Orders: Orders FL arthrogram hip LT Today S73.192A - Other sprain of left hip, initial encounter MR hip LT wo/w con Today S73.192A - Other sprain of left hip, initial encounter Coding Level of Care Code Est Pt Level 3 (61030) Complex EM visit Add On G2211 Diagnoses Labral tear of left hip joint S73.192A Pain of left lower extremity M79.605
[2025-01-26 14:29] VITALS: BMI 28.6
== END 2025-01-26 14:44 | disposition home or self-care (01) ==
LOC: HO.HOS 14:22
PROVIDERS: PCP Physician Assistant Medical; Visit Provider Orthopaedic Surgery
DX: S73.192A Other sprain of left hip, initial encounter (principal); M79.605 Pain in left leg
CPT/HCPCS: 99213; G2211

== ENCOUNTER → 2025-01-26 14:22 | Outpatient (BNVA) | payer OTHER, SELFPAY | PROVIDERS: PCP Physician Assistant Medical; Visit Provider Orthopaedic Surgery | DX: S73.192A Other sprain of left hip, initial encounter (principal); M79.605 Pain in left leg; M54.50 Low back pain, unspecified; X58.XXXA Exposure to other specified factors, initial encounter; Y93.9 Activity, unspecified; Y92.9 Unspecified place or not applicable; Y99.9 Unspecified external cause status | CPT/HCPCS: 99212 ==

== ENCOUNTER 2025-02-07 13:43 | Outpatient (REF) | payer OTHER, SELFPAY ==
--- OUTSIDE RECORDS SUMMARY | 2025-02-07 16:43 | XMS_ITS | Clinical Summary ---
Author Organization [facility], Address [address] [place] [address] Phone Care Team Providers Care Bottoming Machine Operator Name Role Phone Unavailable Primary Care Provider [...] - 19+ 3-dose series) 1996 Influenza Vaccine (Season Ended) 2025 Pneumococcal Vaccine: Pediat rics (0 to 5 Years) and At-Risk Patients (6 to 64 Years) Aged Out No longer eligi ble based on patient's age to complete this topic Insurance MEDICAID [place]
--- OUTSIDE RECORDS SUMMARY | 2025-02-07 16:43 | XMS_ITS | Clinical Summary ---
Author Organization [facility] ity Address [address] [place] [address] Care Team Providers Care Single Needle Operator Name Role Phone Unavailable Primary Care [...] age to complete this topic Meningococcal B Vaccine Aged Out No l onger eligible based on patient's age to complete [...]
== END 2025-02-07 13:44 | disposition home or self-care (01) ==
LOC: HO.MAMMO 13:43
PROVIDERS: PCP Physician Assistant Medical; Visit Provider Physician Assistant Medical
DX: Z12.31 Encounter for screening mammogram for malignant neoplasm of breast (principal)
CPT/HCPCS: 77063; 77067

== ENCOUNTER → 2025-02-07 14:00 | Outpatient (BNV) | payer OTHER, SELFPAY | PROVIDERS: PCP Physician Assistant Medical; Visit Provider Internal Medicine | DX: Z12.31 Encounter for screening mammogram for malignant neoplasm of breast (principal) | CPT/HCPCS: 77063; 77067 ==

== ENCOUNTER 2025-02-17 12:59 | Outpatient (REF) | payer OTHER, SELFPAY ==
--- NOTE | ~2025-02-17 | FL_ITS ---
EXAMINATION: XR ARTHROGRAM HIP, LEFT CLINICAL INFORMATION: S73.192A - Other sprain of left hip, initial encounter COMPARISON: None available. TECHNIQUE: Following explaining fluoroscopy-guided left hip arthrogram procedure, benefits and risk, a written consent was obtained. Patient was placed supine on fluoroscopy table and skin marker was placed under fluoroscopy. The marked site was cleaned and draped in usual sterile manner. 1% lidocaine was injected puncture site. Through a small skin incision a 22-gauge spinal needle was inserted from the skin to the lateral border of left femoral neck and 3-5 mL of nonionic contrast injected. Single image was obtained for documentation. Subsequently 0.1 mL of gadolinium diluted in 3 mL of 1% lidocaine and 7 mL of saline was injected and needle withdrawn. Complete hemostasis achieved at puncture site. Simple Band-Aid applied postprocedure. Patient tolerated procedure extremely well. FINDINGS: There are no fractures or dislocations. No joint effusion is identified. No bone, joint or soft tissue abnormality is demonstrated. There is nonionic ionic contrast visualized in the left hip joint space FLUOROSCOPY TIME: 2 minutes 13 seconds DOSE AREA PRODUCT: 212 uGy-m2 (microgray-meter squared) FL/FL arthrogram hip LT IMPRESSION: Successful fluoroscopy-guided left hip arthrogram performed without immediate complications. Electronically signed by: Amando Diaz MD 02/17/2025 03:00 PM EDT
--- NOTE | ~2025-02-17 | MR_ITS ---
CLINICAL HISTORY: S73.192A - Other sprain of left hip, initial encounter MR arthrogram left hip. No comparison. Findings: No suspicious bony lesions are seen. No evidence of a stress fracture or avascular necrosis is identified. There is a prominent tear of the anterior superior labrum. No loose bodies are seen. There is mild cartilage thinning along the superior aspect of the femoral head. There is ill-defined increased signal in the ligamentum teres that is indeterminate. There is mild distal gluteus medius and minimus tendinopathy. There is possible mild common hamstrings tendinopathy. Impression: Tear of the anterior inferior labrum. Mild cartilage thinning superior aspect of the femoral head. Mild gluteus medius and minimus tendinopathy. Possible mild common hamstrings tendinopathy. Ill-defined increased signal in the ligamentum teres is likely incidental. A tear of the ligament is felt to be an unlikely possibility. This document has been electronically signed by: Jim Hernandez MD on 02/22/2025 18:09:27
--- OUTSIDE RECORDS SUMMARY | 2025-02-17 13:32 | XMS_ITS | Clinical Summary ---
Author Organization [facility], Address [address] [place] [address] Phone Care Team Providers Care Compliance Manager Name Role Phone Unavailable Primary Care Provider [...] Influenza Vaccine (Season Ended) 2025 Pneumococcal Vaccine: Peds ( 0 to 5 Years) and At-Risk Patients (6 to 49 Years) Aged Out No longer eligible b ased on patient's age to complete this topic Insurance Medicaid [place]
--- OUTSIDE RECORDS SUMMARY | 2025-02-17 13:32 | XMS_ITS | Clinical Summary ---
Author Organization [facility] ity Address [address] [place] [address] Care Team Providers Care Fbi Special Agent Name Role Phone Unavailable Primary Care Provider [...] 1998 COVID-19 Vaccine (2023-2 5 season) 2024 Colorectal Cancer Screening: Colonoscopy 08/11/2024 Depression Screening 08/11/2024 HIV Screening 08/11/2024 Hepatitis C Screening 08/11/2024 Social Influencers of Health Screening 08/11/2024 Influenza Vaccine (Season Ended) 2025 HIB Vaccines Aged Out No longer eligi [...]
[2025-02-17] MEDS: iohexoL 300 MG/ML 50 ML INFUS..BTL 25 ML INTRAARTIC (14:02)
[2025-02-22] MEDS: gadobutroL 2 ML VIAL IVPUSH (09:14)
== END 2025-02-17 13:00 | disposition home or self-care (01) ==
LOC: HO.XRAY 12:59
PROVIDERS: PCP Physician Assistant Medical; Visit Provider Orthopaedic Surgery
DX: S73.192A Other sprain of left hip, initial encounter (principal)
CPT/HCPCS: 27093; 73525; 73722; A9585; Q9967

== ENCOUNTER → 2025-02-17 13:07 | Outpatient (BNV) | payer OTHER, SELFPAY | PROVIDERS: PCP Physician Assistant Medical; Visit Provider Radiology Diagnostic Radiology | DX: S73.192A Other sprain of left hip, initial encounter (principal) | CPT/HCPCS: 27093; 73525; 73722 ==

== ENCOUNTER 2025-03-22 11:29 | Outpatient (AMB) | payer OTHER, SELFPAY ==
--- NOTE | 2025-03-22 11:32 | MHC.OFFVIS ---
Vital Signs 03/22/25 11:33 Height 5 ft 6.5 in Weight 180 lb BMI 28.6 Intake Visit Reasons: MRI review left hip Intake Note: Rupesh is a 49 year old female who presents today for review of her left hip MRI results. She describes her hip pain as sharp in nature. Most of her pain is located within her left groin. Her symptoms have gotten worse over the last year spite of continued non operative treatments. Allergies wasp Allergy (Severe, Uncoded 03/22/25 11:33) Anaphylaxis hydrocodone Allergy (Intermediate, Uncoded 03/22/25 11:33) hives Hydrocodone-Ibuprofen Allergy (Unknown, Uncoded 03/22/25 11:33) Hives Medication List - Last Reconciled 03/22/25 by Guy Andino MD albuterol sulfate 90 mcg/actuation 2 puffs inhalation QID PRN cholecalciferol (vitamin D3) 1,250 mcg PO QWEEK 12 weeks duloxetine 30 mg PO DAILY montelukast 10 mg PO BEDTIME tramadol 50 mg PO Q12H PRN PFSH Medical History (Updated 01/27/25 @ 07:05 by Guy Andino MD) Decreased white blood cell count Situational depression Allergy-induced asthma Fatigue Herniated disc Anxiety Asthma Cervical ca Pulmonary embolism Surgical History (Updated 01/12/25 @ 13:51 by Mirtha Garrett CMA) History of tubal ligation History of back surgery History of cardiac radiofrequency ablation Family History (Updated 01/12/25 @ 16:15 by Patty Fournier CMA) Maternal Uncle Prostate cancer Maternal Grandfather Stroke HTN (hypertension) High cholesterol Paternal Grandfather Lung cancer HTN (hypertension) High cholesterol Paternal Aunt Stomach cancer Maternal Grandmother Heart attack Dementia HTN (hypertension) High cholesterol Cardiovascular disease Father Diabetes HTN (hypertension) High cholesterol Maternal Uncle HTN (hypertension) Maternal Uncle HTN (hypertension) Paternal Grandmother Dementia HTN (hypertension) High cholesterol Son FH: mental illness Brother Substance abuse Mother Thyroid disorder Social History (Updated 01/12/25 @ 16:11 by Patty Fournier CMA) Housing: House Alcohol intake: former Patient Tobacco Use Status: Never used Tobacco e-Cigarette/Vaping Use: Never Used service: No Current occupational status: employed 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 Current occupational exposures/hazards: No Cognitive needs: No Hearing needs: No Vision needs: Yes (glasses) Physical Exam Vital Signs: BMI result Body Mass Index 28.6 Const Other: Well-nourished well-developed very friendly female awake alert and oriented x3 in no acute distress Extrem Other: Left hip examination shows decreased range of motion when compared to her right hip, pain with range of motion, increased pain with forward flexion and internal rotation, no tenderness over her bursa Results Reviewed Results Reviewed: MRI arthrogram of the patient's left hip shows an anterior labral tear, minimal degenerative changes Assessment & Plan Assessment & Plan (1) Labral tear of left hip joint: Code(s): S73.192A - Other sprain of left hip, initial encounter Category: Medical Plan Ms. Hicks presents with left hip pain due to a labral tear. I had a lengthy discussion with the patient regarding the treatment options. At this point the patient appears to be failing continued non operative treatments. No one here at [facility] performs hip arthroscopic surgery. Thus, I have referred her to Dr. Jaydon Rolon in [place], [place]. She will contact his office to make a follow-up appointment. She will call me prior to that appointment should her symptoms worsen in any way. Feel free to call me at any time should questions regarding her orthopedic management arise. I spent 20 minutes in reviewing the patient's records and imaging studies, seeing the patient and documenting in the medical record. Coding Level of Care Code Est Pt Level 3 (88046) Complex EM visit Add On G2211 Diagnoses Labral tear of left hip joint S73.192A
[2025-03-22 11:33] VITALS: BMI 28.6
--- OUTSIDE RECORDS SUMMARY | 2025-03-22 12:52 | XMS_ITS | Clinical Summary ---
Author Organization [facility] ity Address [address] [place] [address] Care Team Providers Care Errand Runner Name Role Phone Unavailable Primary Care Provider [...]
--- OUTSIDE RECORDS SUMMARY | 2025-03-22 12:52 | XMS_ITS | Clinical Summary ---
Author Organization [facility], Address [address] [place] [address] Phone Care Team Providers Care Fisher Swordfish Name Role Phone Unavailable Primary Care Provider [...] age to complete this topic Insurance Medicaid [place]
== END 2025-03-22 11:49 | disposition home or self-care (01) ==
LOC: HO.HOS 11:30
PROVIDERS: PCP Physician Assistant Medical; Visit Provider Orthopaedic Surgery
DX: S73.192A Other sprain of left hip, initial encounter (principal)
CPT/HCPCS: 99213; G2211

== ENCOUNTER → 2025-03-22 11:29 | Outpatient (BNVA) | payer OTHER, SELFPAY | PROVIDERS: PCP Physician Assistant Medical; Visit Provider Orthopaedic Surgery | DX: S73.192A Other sprain of left hip, initial encounter (principal) | CPT/HCPCS: 99212 ==

== ENCOUNTER 2025-04-18 12:19 | Outpatient (REF) | payer OTHER, SELFPAY ==
[2025-04-18 12:53] LABS: Baso%MD 0.9 %; Eos%MD 1.5 %; Hematocrit 40.6 % (37.0-47.0); Hemoglobin 13.8 g/dl (12.0-16.0); IG%MD 0.2 %; Lymph%MD 44.5 %; Mean Corpuscular Volume 88.3 fL (80.0-98.0); Mean Platelet Volume 9.2 fL (9.4-12.3); Mono%MD 7.6 %; Neut%MD 45.3 %; Platelet Count 285 X10*3/uL (160-400); Red Cell Distribution Width 12.8 % (11.0-16.0); White Blood Count 5.5 X10*3/uL (4.8-10.8)
[2025-04-18 13:40] LABS: Atypical Lymph Absolute Manual 0.4 x10*3/uL; Atypical Lymphs Percent Manual 8 % (0-6); Band Neutrophils Percent 1 % (3-5); Eosinophils Absolute Manual 0.1 X10*3/uL (0.0-0.4); Eosinophils Percent Manual 1 % (0-4); Lymphocytes Absolute Manual 2.3 X10*3/uL (1.2-4.9); Lymphocytes Percent Manual 41 % (20-40); Monocytes Absolute Manual 0.3 X10*3/uL (0.1-1.2); Monocytes Percent Manual 6 % (2-11); Neutrophils Absolute Manual 2.4 X10*3/uL (2.0-8.3); Neutrophils Percent Manual 43 % (45-73)
[2025-04-18 13:42] LABS: Platelet Estimate NORMAL (NORMAL); Platelet Morphology Comment NORMAL; RBC Morphology NORMAL
--- OUTSIDE RECORDS SUMMARY | 2025-04-18 14:04 | XMS_ITS | Clinical Summary ---
Author Organization [facility] ity Address [address] [place] [address] Care Team Providers Care Mainspring Strip Inspector Name Role Phone Unavailable Primary Care Provider [...]
[2025-04-22 15:23] LABS: Vitamin D 25-OH, D2 <4 ng/mL; Vitamin D 25-OH, D3 46 ng/mL; Vitamin D 25-OH, Total 46 ng/mL (30-100)
== END 2025-04-18 12:20 | disposition home or self-care (01) ==
LOC: HO.LAB 12:19
PROVIDERS: PCP Physician Assistant Medical; Visit Provider Physician Assistant Medical
DX: D72.819 Decreased white blood cell count, unspecified (principal); M85.80 Other specified disorders of bone density and structure, unspecified site
CPT/HCPCS: 36415; 82306; 85007; 85027

== ENCOUNTER 2025-06-01 09:54 | Outpatient (AMB) | payer OTHER, SELFPAY ==
--- NOTE | 2025-06-01 10:01 | A.OFFPC_ITS ---
Vital Signs 06/01/25 10:08 Height 5 ft 6.5 in Weight 180 lb 0.2 oz BMI 28.6 BP 116/82 Blood Pressure Location Rt brachial Position Sitting Respiration 12 Pulse 74 Pulse Source Pulse Oximeter Temp 98.2 F Temp Source Temporal Artery Scan Pulse Oximetry (%) 96 Oxygen Delivery Method Room Air Intake Visit Reasons: Disability PW Intake Note: Rupesh presents in the office today for disability paperwork. Allergies wasp Allergy (Severe, Uncoded 06/01/25 10:05) Anaphylaxis hydrocodone Allergy (Intermediate, Uncoded 06/01/25 10:05) hives Hydrocodone-Ibuprofen Allergy (Unknown, Uncoded 06/01/25 10:05) Hives Tobacco use date assessed: 06/01/25 Dental Screening Dental Screen Date: 06/01/25 Did you have a dental visit in the last 12 months?: Yes Did you have a dental problem in the last 6 months where you did not have access to dental care?: No Was dental information given to patient?: Patient has dentist HPI HPI Comments History of Present Illness Details This is a 49-year-old female with a past medical history of chronic pain, acid reflux, PE 2008 presentting for follow up. She is currently going through a divorce. She is staying with her daughter temporarily. She has chronic pain, and she was seen at the neuro spine clinic and by Dr. Patrick and Dr. Kowalski. She has lower back shooting pains down her left lower extremity for the past 10 years since before L5-S1 lumbar fusion surgery. She attempted many forms of conservative management to mitigate pain. 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 She has been seen by pain management. They are going to try injections and then proceed with a spinal cord stimulator if it is ineffective. She has tried gabapentin, Tylenol, NSAIDs. Her current regimen is tramadol 50 mg every 8 hours as needed for pain. She also reports having trigger injections for degenerative disc disease in her cervical spine with Dr. Patrick. She filed for disability, and she appealed last year. She has a hearing set. Vitamin-D deficiency was treated with high-dose supplementation. Recent vitamin-D level is normal. She discontinued duloxetine because it made her feel down. She will see Dr. Tena in June for her left hip which has a labral tear, effusion and arthritis. They are discussing a hip replacement versus labral repair. She endorses a history of asthma treated with albuterol as needed. She is using albuterol less than once per week. She did not end up taking Singulair. ROS: Constitutional: No fevers, chills or night sweats. No unexplained weight loss. +fatigue Respiratory: Denies cough, wheezing, shortness of breath. Cardiovascular: No chest pain Neurologic: No headache, dizziness, syncope Skin: No rash Physical exam: Constitutional: Alert, in no distress. Neck: Supple, Full range of motion. No lymphadenopathy. Respiratory: Clear to auscultation. Cardiovascular: S1 S2 regular. No murmurs Neurologic: No focal neurological deficits. Extremities: Warm and well perfused. No clubbing, cyanosis or edema. Psychiatric: Normal mood and affect [facility] Medical History (Updated 06/01/25 @ 14:38 by TAY Smith) Vitamin D deficiency Decreased white blood cell count Situational depression Allergy-induced asthma Fatigue Herniated disc Anxiety Asthma Cervical ca Pulmonary embolism Surgical History (Updated 01/12/25 @ 13:51 by Mirtha Garrett CMA) History of tubal ligation History of back surgery History of cardiac radiofrequency ablation Family History Maternal Uncle Prostate cancer Maternal Grandfather Stroke HTN (hypertension) High cholesterol Paternal Grandfather Lung cancer HTN (hypertension) High cholesterol Paternal Aunt Stomach cancer Maternal Grandmother Heart attack Dementia HTN (hypertension) High cholesterol Cardiovascular disease Father Diabetes HTN (hypertension) High cholesterol Maternal Uncle HTN (hypertension) Maternal Uncle HTN (hypertension) Paternal Grandmother Dementia HTN (hypertension) High cholesterol Son FH: mental illness Brother Substance abuse Mother Thyroid disorder Social History (Updated 06/01/25 @ 10:08 by Milly Alas MA) Housing: House Alcohol intake: former Patient Tobacco Use Status: Never used Tobacco e-Cigarette/Vaping Use: Never Used Second Hand Smoke Exposure: No service: No Current occupational status: employed 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 Current occupational exposures/hazards: No Cognitive needs: No Hearing needs: No Vision needs: Yes (glasses) Questionnaire Thrive Questionnaire Date Thrive assessed: 01/12/25 I am a: Patient What is your living situation today?: I have a steady place to live Within the past 12 months, did the food you bought not last and you didn't have the money to get more?: Never true Within the past 12 months, did you worry whether your food would run out before you got money to buy more?: Never true Do you have trouble paying for medicines?: No Do you have trouble getting transportation to medical appointments?: No Do you have trouble paying your heating and electricity bill?: No Do you have trouble taking care of your child, family member or friend?: No Do you have trouble with day-to-day activities such as bathing, preparing meals, shopping, managing finances, etc.?: Yes Are you currently unemployed and looking for a job?: No Are you interested in more education?: I choose not to answer this question Please select the resources that you would like help with: None Currently or been in a relationship where the following occur: No concerns reported THRIVE Score: 0 YOUNG-7 AMB Questionnaire YOUNG-7 Date YOUNG - 7 assessed: 01/12/25 Source: Developed by Drs. Ham Oro, Cecilia Curran, Devang Lopez and colleagues, with an educational comfort from [employer]. Physical exam (Primary Care) Vital Signs: Last Vital Signs Temp 98.2 F 06/01/25 10:08 Pulse 74 06/01/25 10:08 Resp 12 06/01/25 10:08 BP 116/82 06/01/25 10:08 Pulse Ox 96 06/01/25 10:08 Oxygen Delivery Method Room Air 06/01/25 10:08 BMI result Body Mass Index 28.6 Tobacco/Smoking Status: Tobacco use Status Tobacco use date assessed 06/01/25 06/01/25 10:10 Patient Tobacco Use Status Never used Tobacco 06/01/25 10:08 e-Cigarette/Vaping Use Never Used 06/01/25 10:08 Thrive Assessment: Date of Thrive Assessment Date Thrive assessed 01/12/25 06/01/25 10:03 Currently or been in a relationship where the following occur: No concerns reported Coding Level of Care Code Est Pt Level 4 (38348) Complex EM visit Add On G2211 Diagnoses Fatigue, unspecified type R53.83 Fatigue type: unspecified Chronic pain syndrome G89.4 Mild intermittent extrinsic asthma without complication J45.20 Asthma severity: mild Asthma persistence: intermittent Asthma complication type: uncomplicated Vitamin D deficiency E55.9 Assessment & Plan Assessment & Plan (1) Fatigue: Code(s): R53.83 - Other fatigue Category: Medical Qualifiers: Fatigue type: unspecified Qualified Code(s): R53.83 - Other fatigue Plan: This is probably multifactorial. She has disrupted sleep due to chronic pain, chronic pain itself and situational depression. Vitamin-D deficiency corrected. (2) Chronic pain syndrome: Code(s): G89.4 - Chronic pain syndrome Category: Medical Plan: Followed by pain management, Orthopedics, and she was seen by the neuro spine clinic but no further surgical intervention is warranted. On tramadol as needed. Completed forms for transitional assistance. (3) Allergy-induced asthma: Code(s): J45.909 - Unspecified asthma, uncomplicated Category: Medical Qualifiers: Asthma severity: mild Asthma persistence: intermittent Asthma complication type: uncomplicated Qualified Code(s): J45.20 - Mild intermittent asthma, uncomplicated Plan: Continue albuterol 2 puffs as needed for coughing, wheezing and shortness of breath. Monitor symptom burden. Cologuard ordered. Referred to OBGYN for annual exam. (4) Vitamin D deficiency: Code(s): E55.9 - Vitamin D deficiency, unspecified Category: Medical Plan: Take 1000 IU of vitamin D3 daily indefinitely. Plan She will schedule a physical exam in 4 months. Orders: Orders Complete Blood Count no Diff 4 Months E55.9 - Vitamin D deficiency, uns pecified, R53.83 - Other fatigue, Z00.00 - Encounter for general adult medical examination without abnormal findings, Z13.6 - Encounter for screening for cardiovascular disorders Lipid Panel 4 Months E55.9 - Vitamin D deficiency, unspecified, R53.83 - Other fatigue, Z00.00 - Encounter for general adult medical examination without abnormal findings, Z13.6 - Encounter for screening for cardiovascular disorders Vitamin D 25-OH (D2 and D3) 4 Months E55.9 - Vitamin D deficiency, unspecified, R53.83 - Other fatigue, Z00.00 - Encounter for general adult medical examination without abnormal findings, Z13.6 - Encounter for screening for cardiovascular disorders TSH reflex Free T4 4 Months E55.9 - Vitamin D deficiency, unspecified, R53.83 - Other fatigue, Z00.00 - Encounter for general adult medical examination without abnormal findings, Z13.6 - Encounter for screening for cardiovascular disorders Comprehensive Met. Panel 4 Months E55.9 - Vitamin D deficiency, unspecified, R53.83 - Other fatigue, Z00.00 - Encounter for general adult medical examination without abnormal findings, Z13.6 - Encounter for screening for cardiovascular disorders Referrals Cologuard Test Z12.11 - Encounter for screening for malignant neoplasm of colon DESKTOP SUPPORT ENGINEER Referral Z01.419 - Encounter for gynecological examination (general) (routine) without abnormal findings
[2025-06-01 10:08] VITALS: BP 116/82; PULSE 74; RESP 12; TEMP 36.8; O2SAT 96; BMI 28.6
--- OUTSIDE RECORDS SUMMARY | 2025-06-01 10:28 | XMS_ITS | Clinical Summary ---
Author Organization [facility] ity Address [address] [place] [address] Care Team Providers Care Construction Project Assistant Name Role Phone Unavailable Primary Care Provider [...] season) 2024 Colorectal Cancer Screening: Colonoscopy 08/11/2024 HIV Screening 08/11/2024 Hepatitis C Screening 08/11/2024 Social Influencers of Health Screening 08/11/2024 Depression Screening 11/02/2024 Influenza Vaccine (#1) 2025 HIB Vaccines Aged Out No longer [...]
--- OUTSIDE RECORDS SUMMARY | 2025-06-01 10:28 | XMS_ITS | Clinical Summary ---
Author Organization [facility], Address [address] [place] [address] Phone Care Team Providers Care Custom Shoemaker Name Role Phone Unavailable Primary Care Provider [...] 89 02/06/2022 11:32 AM EDT Temperature 36.8 C (98.2 F) 02/06/2022 11:32 AM EDT Respiratory Rate - - Oxygen Saturation 99% [...] 19+ 3-dose series) 1996 Influenza Vaccine (#1) 2025 Pneumococcal Vaccine: Peds ( 0 to 5 Years) and At-Risk Patients (6 to 49 Years) Aged Out No longer eligible b ased on patient's age to complete this topic Insurance Medicaid [place]
== END 2025-06-01 10:39 | disposition home or self-care (01) ==
LOC: HO.HMCFM 09:55
PROVIDERS: PCP Physician Assistant Medical; Visit Provider Physician Assistant Medical
DX: R53.83 Other fatigue (principal); G89.4 Chronic pain syndrome; J45.20 Mild intermittent asthma, uncomplicated; E55.9 Vitamin D deficiency, unspecified

== ENCOUNTER → 2025-06-01 09:54 | Outpatient (BNVA) | payer OTHER, SELFPAY | PROVIDERS: PCP Physician Assistant Medical; Visit Provider Physician Assistant Medical | DX: G89.4 Chronic pain syndrome (principal); R53.83 Other fatigue; J45.20 Mild intermittent asthma, uncomplicated; E55.9 Vitamin D deficiency, unspecified; K21.9 Gastro-esophageal reflux disease without esophagitis; Z86.711 Personal history of pulmonary embolism | CPT/HCPCS: 99212 ==

== ENCOUNTER 2025-09-25 10:51 | Outpatient (REF) | payer MEDICARE, MEDICAID, SELFPAY ==
[2025-09-25 11:48] LABS: Hematocrit 41.2 % (37.0-47.0); Hemoglobin 13.7 g/dl (12.0-16.0); Mean Corpuscular HGB Conc 33.3 g/dl (31.0-35.0); Mean Corpuscular Hemoglobin 29.8 pg (27.0-33.0); Mean Corpuscular Volume 89.6 fL (80.0-98.0); NRBC Abs Auto 0.000 X10*3/uL (0.0-0.012); NRBC Pct Auto 0.0 /100WBC (0.0-0.2); Platelet Count 255 X10*3/uL (160-400); Red Blood Count 4.60 X10*6/uL (4.20-5.50); White Blood Count 4.7 X10*3/uL (4.8-10.8)
--- OUTSIDE RECORDS SUMMARY | 2025-09-25 13:51 | XMS_ITS | Clinical Summary ---
Author Organization [facility], Address [address] [place] [address] Phone Care Team Providers Care Student Support Services Director Name Role Phone Unavailable Primary Care Provider [...] age to complete this topic Insurance Medicaid [place]
--- OUTSIDE RECORDS SUMMARY | 2025-09-25 13:51 | XMS_ITS | Clinical Summary ---
Author Organization [facility] ity Address [address] [place] [address] Care Team Providers Care Science Intern Name Role Phone Unavailable Primary Care Provider [...] Last Done Comments Breast Cancer Screening 1977 Colorectal Cancer Screening: Colonoscopy 1977 DTaP,Tdap,and Td Vaccines (1 - Tdap) 1996 Hepatitis B Vaccines (1 of 3 - 19+ 3-dose series) 1996 Cervical Cancer Screening: P ap Smear 1998 HIV Screening 08/11/2024 Hepatitis C Screening 08/11/2024 Social Influencers of Health Screening 08/11/2024 Depression Screening 11/02/2024 COVID-19 Vaccine ( - 2024-2 6 season) 2025 Influenza Vaccine (#1) 2025 RSV Immunization Adult Patie nts (1 - 1-dose 75+ series) 2052 HIB Vaccines Aged Out No longer eligi [...]
[2025-09-25 15:00] LABS: Alanine Aminotransferase 27 U/L (0-31); Albumin Level 4.3 g/dL (3.5-5.0); Alkaline Phosphatase 92 U/L (39-117); Anion Gap 9 (12-20); Aspartate Amino Transferase 27 U/L (5-31); Blood Urea Nitrogen 20 mg/dL (9-16); Calcium 8.8 mg/dL (8.4-10.2); Carbon Dioxide 25 mmol/L (22-29); Chloride 112 mmol/L (96-108); Cholesterol 182 mg/dL (<200); Estimated Glomerular Filt Rate > 60; HDL Cholesterol 64 mg/dL (>40); Potassium 3.9 mmol/L (3.3-5.1); Sodium 142 mmol/L (135-145); Total Protein 7.0 g/dL (6.5-8.0); Triglycerides 71 mg/dL (<150)
[2025-09-30 16:09] LABS: Vitamin D 25-OH, D2 <4 ng/mL; Vitamin D 25-OH, D3 37 ng/mL; Vitamin D 25-OH, Total 37 ng/mL (30-100)
== END 2025-09-25 10:52 | disposition home or self-care (01) ==
LOC: HO.LAB 10:51
PROVIDERS: PCP Physician Assistant Medical; Visit Provider Physician Assistant Medical
DX: Z00.00 Encounter for general adult medical examination without abnormal findings (principal); Z13.6 Encounter for screening for cardiovascular disorders; R53.83 Other fatigue; E55.9 Vitamin D deficiency, unspecified
CPT/HCPCS: 36415; 80053; 80061; 82306; 84443; 85027

== ENCOUNTER 2025-10-02 11:46 | Outpatient (AMB) | payer MEDICARE, MEDICAID, SELFPAY ==
--- NOTE | 2025-10-02 11:58 | MHC.PC.OV ---
Vital Signs 10/02/25 12:04 Height 5 ft 6 in Weight 178 lb 4 oz BMI 28.8 BP 102/62 Blood Pressure Location Rt brachial Position Sitting Respiration 13 Pulse 72 Pulse Source Pulse Oximeter Temp 97.8 F Temp Source Temporal Artery Scan Pulse Oximetry (%) 95 Oxygen Delivery Method Room Air Intake Visit Reasons: physical exam Intake Note: Rupesh presents in the office today for her annual physical. Allergies wasp Allergy (Severe, Uncoded 10/02/25 12:02) Anaphylaxis hydrocodone Allergy (Intermediate, Uncoded 10/02/25 12:02) hives Hydrocodone-Ibuprofen Allergy (Unknown, Uncoded 10/02/25 12:02) Hives Medication List - Last Reconciled 10/02/25 by TAY Smith albuterol sulfate 90 mcg/actuation 2 puffs inhalation QID PRN citalopram (Celexa) 10 mg PO DAILY tramadol 50 mg PO Q12H PRN Tobacco use date assessed: 10/02/25 Dental Screening Dental Screen Date: 10/02/25 Did you have a dental visit in the last 12 months?: Yes Did you have a dental problem in the last 6 months where you did not have access to dental care?: No Was dental information given to patient?: Patient has dentist HPI HPI Comments History of Present Illness Details This is a 50-year-old female with a past medical history of chronic pain, acid reflux, PE 2008 presenting for a physical exam. She is here with her mother. She is currently going through a divorce. She is living in [place]. She cares for her parents, her ex has been, takes care of her grandson while her daughter is at work and her grandmother. Her son has psychiatric problems. She is under a lot of stress. She also endorses menopause symptoms. It has been over years since she last had her menstrual period. She has brain fog, irritability, anxiety, some depression, fatigue, hot flashes. She was on Cymbalta for pain but discontinued it because it made her feel down. She has been on gabapentin and Lyrica which were ineffective or caused side effects. She has chronic pain, and she was seen at the neuro spine clinic and by Dr. Patrick and Dr. Kowalski. She has lower back shooting pains down her left lower extremity for the past 10 years since before L5-S1 lumbar fusion surgery. She attempted many forms of conservative management to mitigate pain. 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 She has been seen by pain management. She has tried gabapentin, Tylenol, NSAIDs. Her current regimen is tramadol 50 mg every 8 hours as needed for pain. Patient says she only takes it occasionally. She also reports having trigger injections for degenerative disc disease in her cervical spine with Dr. Patrick. Disability was finally approved. She has a handicap placard. She is following with Dr. Tena for her left hip which has a labral tear, effusion and arthritis. She is delaying surgery since she is the only 1 who can help out her daughter with her grandson. She needs prescriptions for shower senior business objects developer bar with suction, grab bars for the toilet and a shower chair. She uses a cane to walk. We reviewed her lab results from last week. She endorses a history of asthma treated with albuterol as needed. She is using albuterol less than once per week. She has a Cologuard, but she did not complete it yet. Mammogram is up-to-date. She is overdue for a gynecology exam. I referred her and gave her the contact information to call. ROS: Constitutional: No unexplained weight loss, fever. Eyes: No vision changes, blurry vision, double vision, eye pain, eye redness, eye discharge. ENT: No hearing loss, sneezing, congestion, runny nose or sore throat. Respiratory: No shortness of breath, cough or sputum production. Cardiovascular: No chest pain, chest pressure or chest discomfort. No palpitations or pedal edema. Gastrointestinal: No anorexia, nausea, vomiting or diarrhea. No abdominal pain or blood in stool. Genitourinary: No dysuria, hematuria, urinary frequency. Neurologic: No headache, dizziness, syncope, tremors or seizures. Musculoskeletal: See HPI Hematologic/Lymphatics: No bleeding or bruising. No painful lymph nodes. Skin: No rash Endocrine: No cold or heat intolerance. No polyuria or polydipsia. Psychiatric: See HPI. No SI or HI. Physical exam: Constitutional: Alert, in no distress. Head: Normocephalic. Eyes: Pupils are equal, round and reactive to light. Extraocular muscles intact. Ear, Nose and Throat: Canals clear. TMs normal. Normal nasal mucosa. No nasal discharge. No exudates or edema. Mild cobblestoning in the throat. Neck: Supple, Full range of motion. No lymphadenopathy. No palpable thyroid masses. Respiratory: Clear to auscultation. Cardiovascular: S1 S2 regular. No murmurs. . Gastrointestinal: Abdomen soft, non-tender, non-distended. Normal bowel sounds. No palpable masses. Genitourinary: No costovertebral angle tenderness. Neurologic: No focal neurological deficits. Symmetric patellar reflexes. Skin: No rashes Musculoskeletal: Moves extremities spontaneously. Ambulates with cane. Extremities: Warm and well perfused. No clubbing, cyanosis or edema. Intact peripheral pulses bilaterally. Psychiatric: Normal mood and affect [facility] Medical History (Updated 10/02/25 @ 13:22 by TAY Smith) Menopausal symptoms Routine physical examination Vitamin D deficiency Decreased white blood cell count Situational depression Allergy-induced asthma Fatigue Herniated disc Anxiety Asthma Cervical ca Pulmonary embolism Surgical History (Updated 01/12/25 @ 13:51 by Mirtha Garrett CMA) History of tubal ligation History of back surgery History of cardiac radiofrequency ablation Family History Maternal Uncle Prostate cancer Maternal Grandfather Stroke HTN (hypertension) High cholesterol Paternal Grandfather Lung cancer HTN (hypertension) High cholesterol Paternal Aunt Stomach cancer Maternal Grandmother Heart attack Dementia HTN (hypertension) High cholesterol Cardiovascular disease Father Diabetes HTN (hypertension) High cholesterol Maternal Uncle HTN (hypertension) Maternal Uncle HTN (hypertension) Paternal Grandmother Dementia HTN (hypertension) High cholesterol Son FH: mental illness Brother Substance abuse Mother Thyroid disorder Social History (Updated 10/02/25 @ 12:04 by Milly Alas CMA) Housing: House Alcohol intake: former Patient Tobacco Use Status: Never used Tobacco e-Cigarette/Vaping Use: Never Used Second Hand Smoke Exposure: No service: No Current occupational status: employed 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 Current occupational exposures/hazards: No Cognitive needs: No Hearing needs: No Vision needs: Yes (glasses) Questionnaire Thrive Questionnaire Date Thrive assessed: 01/12/25 I am a: Patient What is your living situation today?: I have a steady place to live Within the past 12 months, did the food you bought not last and you didn't have the money to get more?: Never true Within the past 12 months, did you worry whether your food would run out before you got money to buy more?: Never true Do you have trouble paying for medicines?: No Do you have trouble getting transportation to medical appointments?: No Do you have trouble paying your heating and electricity bill?: No Do you have trouble taking care of your child, family member or friend?: No Do you have trouble with day-to-day activities such as bathing, preparing meals, shopping, managing finances, etc.?: Yes Are you currently unemployed and looking for a job?: No Are you interested in more education?: I choose not to answer this question Please select the resources that you would like help with: None Currently or been in a relationship where the following occur: No concerns reported THRIVE Score: 0 YOUNG-7 AMB Questionnaire YOUNG-7 Date YOUNG - 7 assessed: 01/12/25 Source: Developed by Drs. Ham Oro, Cecilia Curran, Devang Lopez and colleagues, with an educational comfort from [employer]. Physical exam (Primary Care) Vital Signs: Last Vital Signs Temp 97.8 F 10/02/25 12:04 Pulse 72 10/02/25 12:04 Resp 13 10/02/25 12:04 BP 102/62 10/02/25 12:04 Pulse Ox 95 10/02/25 12:04 Oxygen Delivery Method Room Air 10/02/25 12:04 BMI result Body Mass Index 28.8 Tobacco/Smoking Status: Tobacco use Status Tobacco use date assessed 10/02/25 10/02/25 12:08 Patient Tobacco Use Status Never used Tobacco 10/02/25 12:04 e-Cigarette/Vaping Use Never Used 10/02/25 12:04 Thrive Assessment: Date of Thrive Assessment Date Thrive assessed 01/12/25 10/02/25 12:00 Currently or been in a relationship where the following occur: No concerns reported Coding Level of Care Code Est Pt Prev Care 40-64y(59979) Complex visit Add On G2211 Diagnoses Routine physical examination Z00.00 Situational depression F43.21 Chronic pain syndrome G89.4 Menopausal symptoms N95.1 Assessment & Plan Assessment & Plan (1) Routine physical examination: Code(s): Z00.00 - Encounter for general adult medical examination without abnormal findings Category: Medical (2) Situational depression: Code(s): F43.21 - Adjustment disorder with depressed mood Category: Medical (3) Chronic pain syndrome: Code(s): G89.4 - Chronic pain syndrome Category: Medical (4) Menopausal symptoms: Code(s): N95.1 - Menopausal and female climacteric states Category: Medical Plan Patient is seen today for a routine physical. As part of this visit we reviewed the following issues, which are considered and essential part of preventative health in this age group: - Breast Cancer screening - Annual Faucet Polisher exam - Screening for colon cancer - Blood pressure screening - Cholesterol screening - Osteoporosis prevention including calcium/vitamin D intake, weight bearing exercise & smoking cessation - Nutritional and exercise counseling - Counseling of injury prevention including fire prevention, smoke alarms and seat belt usage - Screening for depression - Education about skin cancer - Recommendations about immunizations - Recommendation of an eye exam - Screening for substance abuse Patient has situational depression related to divorce and chronic pain as well as anxiety and menopausal symptoms. She has tried gabapentin and Lyrica and duloxetine. She would like to try an SSRI. We discussed class C drug interaction due to risk of serotonin syndrome with tramadol. She does not take tramadol frequently. She will monitor for any adverse effects. We also reviewed the black box warning for SSRIs. Start citalopram 10 mg daily. Follow up in 4-6 weeks for a med check. Orders: Orders Influenza [id number] Immunization Today Z23 - Encounter for immunization Referrals FLORAL DESIGNER SALESPERSON Referral Z01.419 - Encounter for gynecological examination (general) (routine) without abnormal findings Medications: New Fluarix (PF) (flu vac ts (6mos up)-PF) 0.5 mL IM ONCE 0.5 mL 0RF NS Z23 - Encounter for immunization citalopram (Celexa) 10 mg PO DAILY 90 tabs 0RF
[2025-10-02 12:04] VITALS: BP 102/62; PULSE 72; RESP 13; TEMP 36.6; O2SAT 95; BMI 28.8
--- OUTSIDE RECORDS SUMMARY | 2025-10-02 15:32 | XMS_ITS | Clinical Summary ---
Author Organization [facility] ity Address [address] [place] [address] Care Team Providers Care Water Treatment Plant Engineer Name Role Phone Unavailable Primary Care Provider [...]
--- OUTSIDE RECORDS SUMMARY | 2025-10-02 15:32 | XMS_ITS | Clinical Summary ---
Author Organization [facility], Address [address] [place] [address] Phone Care Team Providers Care Extrusion Die Corrector Name Role Phone Unavailable Primary Care Provider [...] age to complete this topic Insurance [place]
== END 2025-10-02 12:46 | disposition home or self-care (01) ==
LOC: HO.HMCFM 11:47
PROVIDERS: PCP Physician Assistant Medical; Visit Provider Physician Assistant Medical
DX: Z00.00 Encounter for general adult medical examination without abnormal findings (principal); F43.21 Adjustment disorder with depressed mood; G89.4 Chronic pain syndrome; N95.1 Menopausal and female climacteric states; Z23 Encounter for immunization

== ENCOUNTER → 2025-10-02 11:46 | Outpatient (BNVA) | payer MEDICARE, MEDICAID, SELFPAY | PROVIDERS: PCP Physician Assistant Medical; Visit Provider Physician Assistant Medical | DX: Z00.00 Encounter for general adult medical examination without abnormal findings (principal); Z23 Encounter for immunization; F43.21 Adjustment disorder with depressed mood; G89.4 Chronic pain syndrome; N95.1 Menopausal and female climacteric states | CPT/HCPCS: 90471; 90656; 99396 ==

== ENCOUNTER 2025-10-16 13:45 | Emergency (ER) | payer MEDICARE, MEDICAID, SELFPAY ==
--- NOTE | ~2025-10-16 | XR_ITS ---
EXAMINATION: XR CHEST CLINICAL INFORMATION: chest pain, SOB COMPARISON: 12/22/2020. TECHNIQUE: 2 views of the chest were obtained. FINDINGS: The cardiac, hilar, and mediastinal contours are normal. The lungs are clear bilaterally. There is no pneumothorax or pleural effusion. There is no focal osseous or soft tissue abnormality. XR/XR chest 2V IMPRESSION: No active pulmonary disease. Electronically signed by: Srini Dove MD 10/16/2025 03:32 PM [facility]
--- NOTE | 2025-10-16 13:46 | ECG_ITS ---
Test Reason : chest pain Blood Pressure : */* mmHG Vent. Rate : 57 BPM Atrial Rate : 57 BPM P-R Int : 132 ms QRS Dur : 84 ms QT Int : 414 ms P-R-T Axes : 28 35 15 degrees QTcB Int : 402 ms Sinus bradycardia with sinus arrhythmia Otherwise normal ECG When compared with ECG of 24-Mar-2022 06:29, No significant change was found Referred By: Generic ED Physician Electronically Signed By: Maynor Mcgregor
[2025-10-16 14:12] VITALS: BP 132/60; PULSE 72; RESP 18; TEMP 36.4; O2SAT 99; BMI 29.0
--- NOTE | 2025-10-16 14:13 | ED_ITS ---
HPI - General Adult General Chief complaint: Chest Pain Stated complaint: CP hx of pulmonary embolism Time Seen by Provider: 10/16/25 19:50 Source: patient Mode of arrival: ambulatory Limitations: no limitations History of Present Illness ED Provider: Kayley Rodriguez PA-C HPI narrative: 50-year-old female with history of vitamin D deficiency, situational depression, allergy-induced asthma, chronic pain syndrome, lumbar radiculopathy, GERD, palpitations, and prior pulmonary embolism (2008; completed ~18 months of anticoagulation) presents for evaluation of intermittent central chest pain and dyspnea that began early this morning (~0300). Pain is described as ?crushed, like a broken bone,? lasting ~10 minutes, recurring several times throughout the day, and present again during the encounter. Pain is mid-sternal, symmetric, non-pleuritic, non-exertional, and not clearly related to food intake; mild tenderness to palpation causes only discomfort. Denies relief/worsening with meals; diet generally healthy (cereal with almonds/granola, rice/beans, air- fried or baked foods). No excessive alcohol or spicy/acidic food intake. Reports bilateral lower-leg edema. Significant psychosocial stressor: son hospitalized on psychiatric unit >1 month. No known recent infection or immobilization. No radiation of pain, diaphoresis, syncope, or vomiting reported. Review of Systems: ? Cardiovascular: Positive for intermittent central chest pain; palpitations history. ? Respiratory: Positive for shortness of breath at symptom onset; denies current cough; lungs reported clear. ? GI: History of GERD; current chest discomfort possibly reflux-related; denies change with eating. ? Musculoskeletal: Chest wall tenderness produces only mild discomfort. ? Extremities: Reports bilateral lower leg edema. ? Psychological: Reports significant stress/anxiety related to son?s hospitalization. Related Data Previous Rx's ?Medication ?Instructions ?Recorded albuterol sulfate 90 mcg/actuation 2 puff inhalation Q ID PRN 02/17/25 aerosol inhaler shortness of breath or wheez ing #8.5 grams tramadol 50 mg tablet 50 mg PO Q12H PRN pain #40 t abs 03/20/25 citalopram 10 mg tablet (Celexa) 10 mg PO DAILY #90 ta bs 10/02/25 Shower Chair #1 ea 10/12/25 miscellaneous medical supply #1 ea 10/12/25 miscellaneous medical supply 1 miscellaneous .COMPL EX #1 ea 10/12/25 Allergies Allergy/AdvReac Type Severity Reaction Status Date / Time wasp Allergy Severe Anaphylaxis Uncoded 10/16/25 14:14 hydrocodone Allergy Intermediate hives Uncoded 10/16/25 14:14 Hydrocodone-Ibuprofen Allergy Unknown Hives Uncoded 10/16/25 14:14 Review of Systems 2 Review of Systems: Yes all other systems are reviewed and are negative PMFSH Past Medical History Attestation statement: The following information was validated with the patient. Source: old records reviewed and nursing notes reviewed Medical History Menopausal symptoms Routine physical examination Vitamin D deficiency Decreased white blood cell count Situational depression Allergy-induced asthma Fatigue Herniated disc Anxiety Asthma Cervical ca Pulmonary embolism Surgical History History of tubal ligation History of back surgery History of cardiac radiofrequency ablation Family History Family History Maternal Uncle Prostate cancer Maternal Grandfather Stroke HTN (hypertension) High cholesterol Paternal Grandfather Lung cancer HTN (hypertension) High cholesterol Paternal Aunt Stomach cancer Maternal Grandmother Heart attack Dementia HTN (hypertension) High cholesterol Cardiovascular disease Father Diabetes HTN (hypertension) High cholesterol Maternal Uncle HTN (hypertension) Maternal Uncle HTN (hypertension) Paternal Grandmother Dementia HTN (hypertension) High cholesterol Son FH: mental illness Brother Substance abuse Mother Thyroid disorder Social History Social History Housing: House Alcohol intake: former Patient Tobacco Use Status: Never used Tobacco Smoked in Last 30 Days: No e-Cigarette/Vaping Use: Never Used Second Hand Smoke Exposure: No Use of substances other than those prescribed or required for medical reasons: No Advance Directives: No Advance Directives Information Provided: Yes Patient : No service: No Current occupational status: employed 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 No septic or ill-appearing. Vitals reviewed normal, PMH/Social and Surgical hx reviewed including allergies and current medications. - reviewed for prior visits here Head: Normocephalic, no obvious trauma or skin lesions noted. Eyes: EOMI, conjunctiva sclera clear ENMT: moist oral mucosa, uvula midline no trismus Neck: trachea midline Cardiovascular: peripheral perfusion normal, Regular heart rate, regular rhythm, no abdominal bruit, pulses equal and symmetric Respiratory: no respiratory distress, lungs clear, nontender chest wall Abdomen: nondistended, nontender Extremities: warm and moving without difficulty Psych: Cooperative Neuro: Alert and oriented. Vital Signs: Vital Signs - 24 hr 10/16/25 14:12 10/16/25 19:37 Temperature 97.5 F 97.6 F Pulse Rate 72 57 Respiratory Rate 18 20 Blood Pressure 132/60 127/61 Pulse Oximetry 99 96 Oxygen Delivery Method Room Air Room Air BMI result Body Mass Index 29.0 Course Course Course Narrative: Rapid medical examination performed in triage by Tammi Monterroso PA-C: Patient is a 50 year old female presenting to the emergency department with chest pain. Patient states that she woke up with central chest pain and shortness of breath. Patient states that she has a history of PE several years ago and is not currently on anti-coagulation medications of any kind. Detailed physical exam and review of systems are deferred to the agile developer. EKG, labs, imaging, swabs ordered. Patient placed back in the waiting room pending room availability and results. Medications Administered Discontinued Medications Generic Name Dose Route Start Last Admin Trade Name Freq PRN Reason Stop Dose Admin Al Hydroxide/Mg Hydroxide 15 ml 10/16/25 20:10 10/16/25 20:21 Magnesium Hydrox/Alum Hydrox 30 Ml Oral.Susp PO 10/16/25 20:11 15 ml ONCE ONE Administration Lidocaine HCl 15 ml 10/16/25 20:10 10/16/25 20:21 Lidocaine Hcl Viscous 2 % 15 Ml Solution MUCOUS MEM 10/16/25 20:11 15 ml ONCE ONE Administration Medical Decision Making Medical Decision Making [facility] Narrative: 50-year-old female with history of vitamin D deficiency, situational depression, allergy-induced asthma, chronic pain syndrome, lumbar radiculopathy, GERD, palpitations, and prior pulmonary embolism (2008; completed ~18 months of anticoagulation) presented with intermittent central chest pain and 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 Differential Diagnosis Considered: Differential included acute coronary syndrome (ACS), pulmonary embolism (PE), aortic dissection, pneumonia, GERD, esophageal spasm, anxiety, and musculoskeletal pain. Life-threatening causes (ACS, PE, dissection, pneumonia) were prioritized for exclusion given her history of prior PE, new bilateral edema, and chest pain. History and physical exam revealed non-exertional, mid-sternal chest pain without pleuritic features, radiation, or associated diaphoresis/syncope. Laboratory evaluation showed normal CBC and CMP, negative troponin, and normal D-dimer, effectively ruling out ACS and PE. Imaging with chest X-ray was unremarkable, and EKG demonstrated sinus bradycardia with sinus arrhythmia but no ischemic changes. Rapid viral testing for COVID-19, influenza, and RSV was negative. Vitals remained stable throughout the encounter. Pain characteristics and GERD history, along with lack of findings for cardiac or pulmonary pathology, point toward reflux or esophageal spasm as the most likely etiology. Management Decisions: Patient was administered a GI cocktail ([id number]) for symptomatic relief. She was discharged home after improvement in symptoms and confirmation of stable vital signs. Outpatient follow-up with cardiology or gastroenterology was recommended if symptoms persist or worsen. Emotional support was provided in light of significant psychosocial stressors. Complexity: Moderate complexity due to multiple comorbidities, prior PE, new bilateral lower extremity edema, and the need to exclude life-threatening causes through detailed history, physical exam, laboratory, and imaging evaluation. Assessment & Plan 50-year-old female evaluated for intermittent central chest pain. Life- threatening causes (ACS, PE, dissection, pneumonia) were explicitly ruled out by history, exam, negative troponin, normal D-dimer, normal CXR, and reassuring EKG, as discussed with the patient. Pain characteristics and prior GERD history point toward reflux/esophageal spasm. Problem #1: Chest pain ? likely GERD/esophageal spasm Assessment: Intermittent central chest pain, non-exertional, normal cardiac/PE work-up; consistent with reflux or esophageal spasm. Heart Score 2. Plan: * Administer GI cocktail ([id number]) in ED for symptomatic relief. * Discharge home once symptoms improved and vitals remain stable. Problem #2: Psychosocial stress / situational anxiety Assessment: Significant stress related to son?s prolonged psychiatric hospitalization; may contribute to symptom perception. Plan: * Provided emotional support; acknowledged stressors. Differential Diagnosis Differential Diagnoses: The differential diagnosis associated with the presentation includes See [facility] Admission/Observation Consideration of admission/observation: Escalation of care including admission/observation considered Lab Data [facility] Lab Attestation statement: I reviewed the patient's lab results. ? CBC: WNL, no leukocytosis or anemia. ? CMP: No electrolyte imbalance or liver enzyme elevation; random glucose 120 mg/dL. ? Troponin: Negative. ? D-dimer: Normal (< cut-off), PE ruled out. ? Rapid tests: COVID-19, Influenza, RSV all negative. 10/16/25 14:29 10/16/25 14:29 Labs: Lab Results 10/16/25 Range/Units 14:29 WBC 6.1 (4.8-10.8) X10*3/uL RBC 4.84 (4.20-5.50) X10*6/uL Hgb 14.4 (12.0-16.0) g/dl Hct 42.9 (37.0-47.0) % MCV 88.6 (80.0-98.0) fL MCH 29.8 (27.0-33.0) pg MCHC 33.6 (31.0-35.0) g/dl RDW 12.1 (11.0-16.0) % Plt Count 272 (160-400) X10*3/uL MPV 9.8 (9.4-12.3) fL Immature Gran % (Auto) 0.5 H (0.0-0.4) % Neut % (Auto) 60.1 (45-73) % Lymph % (Auto) 33.4 (20-40) % [place] % (Auto) 4.1 (2-11) % Eos % (Auto) 1.2 (0-4) % Baso % (Auto) 0.7 (0-2) % Lymph # (Auto) 2.0 (1.2-4.9) X10*3/uL [place] # (Auto) 0.3 (0.1-1.2) X10*3/uL Eos # (Auto) 0.1 (0.0-0.4) X10*3/uL Baso # (Auto) 0.0 (0.0-0.2) X10*3/uL Abs Immat Gran (auto) 0.03 (0.00-0.03) X10*3/uL Absolute Neuts (auto) 3.7 (2.0-8.3) x10*3/uL Absolute Nucleated RBC 0.000 (0.0-0.012) X10*3/uL Nucleated RBC % (auto) 0.0 (0.0-0.2) /100WBC PT 11.8 (11.2-13.5) SEC INR 1.0 (0.9-1.1) D-Dimer High Sensitivty 159 NG/ML Sodium 143 (135-145) mmol/L Potassium 3.7 (3.3-5.1) mmol/L Chloride 108 (96-108) mmol/L Carbon Dioxide 26 (22-29) mmol/L Anion Gap 13 (12-20) BUN 17 H (9-16) mg/dL Creatinine 0.92 (0.5-1.4) mg/dL Estim Creat Clear Calc 80.5 Estimated GFR > 60 Random Glucose 120 H (60-115) mg/dL Calcium 9.2 (8.4-10.2) mg/dL Magnesium 2.2 (1.6-2.6) mg/dL Total Bilirubin 0.3 (0.0-1.0) mg/dL AST 28 (5-31) U/L ALT 26 (0-31) U/L Alkaline Phosphatase 109 (39-117) U/L Troponin I High Sens < 2.7 (<3.5-17.0) ng/L Total Protein 7.8 (6.5-8.0) g/dL Albumin 4.7 (3.5-5.0) g/dL Beta HCG, Quant 3 mIU/mL Influenza Type A (PCR) NEGATIVE (Negative) Influenza Type B (PCR) NEGATIVE (Negative) RSV RNA Qual (PCR) NEGATIVE (Negative) SARS-CoV-2 RNA (RT-PCR) NEGATIVE (Negative) Independent Interpretation I performed an independent interpretation of an: EKG and Plain X-Ray Interpretation: ? Chest X-ray: No acute pulmonary disease. ? EKG: Sinus bradycardia with sinus arrhythmia; ventricular rate 57 bpm; otherwise normal. Radiology Impression Discussion of test interpretation with radiology: I have reviewed the radiologist's reading. Tests considered The following testing was considered but not selected: CTA chest Chronic Conditions Patient?s care impacted by: Other Social Determinants Patient?s care significantly limited by Social Determinants of Health including: Other Social Determinant of Health Discharge Plan Discharge Clinical Impression: Chest pain Patient Disposition: Home, Self-Care Instructions: Chest Pain (DC) Additional Instructions: Discharge Summary Date of Service: October 17, 2025 Patient Name: Cristel Date of : [] Medical Record Number: [MRN] Attending Provider: Kayley Rodriguez PA-C --- ADMISSION/ENCOUNTER INFORMATION Chief Complaint: I woke up this morning with crushing chest pain in the middle of my chest and shortness of breath. 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 The patient described her chest pain as crushed, like a broken bone, lasting approximately 10 minutes per episode and recurring several times throughout the day. The pain was mid-sternal, symmetric, non-radiating, non-pleuritic, and not clearly related to exertion or food intake. She denied diaphoresis, syncope, or vomiting. Given her history of prior pulmonary embolism and presenting symptoms, acute coronary syndrome (ACS) and recurrent pulmonary embolism (PE) were prioritized for exclusion. Diagnostic Evaluation: - Electrocardiogram (EKG): Sinus bradycardia with sinus arrhythmia; ventricular rate 57 bpm; no ischemic changes - Cardiac biomarkers: Troponin negative - D-dimer: Normal (below threshold), effectively excluding PE - Complete blood count (CBC): Within normal limits - Comprehensive metabolic panel (CMP): No electrolyte abnormalities; random glucose 120 mg/dL - Chest X-ray: No acute pulmonary disease - Infectious disease testing: COVID-19, influenza, and RSV negative Vital Signs: Remained stable throughout the encounter (blood pressure 126-132/60-62 mmHg, heart rate 58-72 bpm, respiratory rate 18-20/min, temperature 97.5-97.6?F, oxygen saturation 96-99% on room air). Physical Examination: The patient was alert and in mild discomfort. Cardiac examination revealed regular rate and rhythm without murmurs, gallops, or rubs. Lungs were clear to auscultation bilaterally. Mild mid-sternal chest wall tenderness was noted on palpation but elicited only minimal discomfort. Based on the comprehensive workup with negative troponin, normal D-dimer, non- ischemic EKG, and normal chest X-ray, life-threatening etiologies including ACS and PE were successfully ruled out. Given the patient's known history of GERD, symptom characteristics, and response to treatment, the chest pain was attributed to gastroesophageal reflux disease or esophageal spasm Treatment: The patient received a GI cocktail (lidocaine-antacid mixture) in the emergency department with symptomatic improvement. Emotional support was provided given significant psychosocial stressors related to her son's prolonged psychiatric hospitalization. --- ACTIVE DIAGNOSES 1. Chest pain ? likely gastroesophageal reflux disease/esophageal spasm 2. Psychosocial stress/situational anxiety --- PAST MEDICAL HISTORY - Vitamin D deficiency - Situational depression - Allergy-induced asthma - Chronic pain syndrome - Lumbar radiculopathy - Gastroesophageal reflux disease (GERD) - Palpitations - Pulmonary embolism (2008, completed approximately 18 months of anticoagulation) MEDICATIONS ON DISCHARGE none. --- DISCHARGE INSTRUCTIONS Activity: Resume normal activities as tolerated. Diet: Continue healthy diet. Consider avoiding known trigger foods for GERD symptoms (if identified), and avoid meals within 2-3 hours of bedtime. Follow-Up: - Primary Care Provider: Follow up within 1-2 weeks for routine care and discussion of symptom management - Cardiology or Gastroenterology: If chest pain symptoms persist or worsen despite conservative management, pursue outpatient evaluation with cardiology or gastroenterology for further assessment - Consider trial of proton pump inhibitor (PPI) therapy if GERD symptoms continue; discuss with primary care provider Return to Emergency Department if: - Chest pain worsens, becomes severe, or is associated with shortness of breath, diaphoresis, or radiation to arm/jaw - Development of syncope, palpitations, or hemodynamic instability - Any other concerning symptoms develop --- PATIENT EDUCATION The patient was counseled that her workup successfully excluded heart attack and blood clot in the lungs. Her symptoms are most consistent with acid reflux or esophageal spasm. She was educated on lifestyle modifications for GERD management, including weight loss if applicable, head of bed elevation for nighttime symptoms, avoidance of late meals, and consideration of tobacco cessation if applicable. The importance of outpatient follow-up was emphasized, particularly if symptoms recur or persist. Prescriptions: No Action albuterol sulfate 90 mcg/actuation HFA aerosol inhaler 2 puff inhalation QID PRN (Reason: shortness of breath or wheezing) Qty: 8.5 0RF tramadol 50 mg tablet 50 mg PO Q12H PRN (Reason: pain) Qty: 40 0RF miscellaneous medical supply Misc 1 ea miscellaneous .COMPLEX Qty: 1 0RF Rx Instructions: grab bars for toilet (DME) miscellaneous medical supply Package See Rx Instructions .Route Qty: 1 0RF Rx Instructions: shower grab bar (suction mounted) (DME) Shower Chair Misc See Rx Instructions .Route Qty: 1 0RF Rx Instructions: As directed citalopram [Celexa] 10 mg tablet 10 mg PO DAILY Qty: 90 0RF Referrals: [facility] [Provider Group, Gastroenterology] Julianne Miranda PA [Primary Care Provider, Endocrinology] Interventions: ED Discharge Assessment Last Done: 10/16/25 21:01 Discharge Date/Time: 10/16/25 21:01 Print Language: Upper Sorbian
[2025-10-16 14:36] LABS: MANUAL DIFF FLAG NO
[2025-10-16 14:39] LABS: Hematocrit 42.9 % (37.0-47.0); Hemoglobin 14.4 g/dl (12.0-16.0); Imm Gran Abs Auto 0.03 X10*3/uL (0.00-0.03); Imm Gran Pct Auto 0.5 % (0.0-0.4); Lymphocytes Absolute Auto 2.0 X10*3/uL (1.2-4.9); Mean Corpuscular HGB Conc 33.6 g/dl (31.0-35.0); Mean Corpuscular Hemoglobin 29.8 pg (27.0-33.0); Mean Corpuscular Volume 88.6 fL (80.0-98.0); NRBC Abs Auto 0.000 X10*3/uL (0.0-0.012); NRBC Pct Auto 0.0 /100WBC (0.0-0.2); Platelet Count 272 X10*3/uL (160-400); Red Blood Count 4.84 X10*6/uL (4.20-5.50); White Blood Count 6.1 X10*3/uL (4.8-10.8)
[2025-10-16 14:52] LABS: INTERNATIONAL NORM RATIO 1.0 (0.9-1.1); Prothrombin Time 11.8 SEC (11.2-13.5)
[2025-10-16 14:54] LABS: D Dimer High Sensitivity 159 NG/ML
[2025-10-16 14:55] LABS: Alanine Aminotransferase 26 U/L (0-31); Albumin Level 4.7 g/dL (3.5-5.0); Alkaline Phosphatase 109 U/L (39-117); Anion Gap 13 (12-20); Aspartate Amino Transferase 28 U/L (5-31); Blood Urea Nitrogen 17 mg/dL (9-16); Calcium 9.2 mg/dL (8.4-10.2); Carbon Dioxide 26 mmol/L (22-29); Chloride 108 mmol/L (96-108); Creatinine Clr Calc Pharmacy 80.5; Estimated Glomerular Filt Rate > 60; Magnesium 2.2 mg/dL (1.6-2.6); Potassium 3.7 mmol/L (3.3-5.1); Sodium 143 mmol/L (135-145); Total Protein 7.8 g/dL (6.5-8.0)
[2025-10-16 14:59] LABS: Troponin-I High Sensitivity < 2.7 ng/L (<3.5-17.0)
[2025-10-16 15:14] LABS: Resp Syncy Virus RNA Qual PCR NEGATIVE (Negative); SARS COV2 PCR INHOUSE NEGATIVE (Negative)
[2025-10-16 19:37] VITALS: BP 127/61; PULSE 57; RESP 20; TEMP 36.4; O2SAT 96
[2025-10-16] MEDS: Magnesium Hydrox/Alum Hydrox 30 ML ORAL.SUSP 15 ML PO (20:21)
[2025-10-16] MEDS: Lidocaine HCl Viscous 2 % 15 ML SOLUTION MUCOUS MEM (20:21)
[2025-10-16 20:59] VITALS: BP 132/60; PULSE 64; RESP 18; TEMP 36.7; O2SAT 98
[2025-10-16 21:01] VITALS: BP 132/60; PULSE 64; RESP 18; TEMP 36.7; O2SAT 98
--- OUTSIDE RECORDS SUMMARY | 2025-10-16 21:05 | XMS_ITS | Clinical Summary ---
Author Organization [facility] ity Address [address] [place] [address] Care Team Providers Care Finish Sander Name Role Phone Unavailable Primary Care Provider [...]
== END 2025-10-16 21:01 | disposition home or self-care (01) ==
PROVIDERS: Physician Assistant Medical; Emergency Provider Emergency Medicine; PCP Physician Assistant Medical
DX: R07.89 Other chest pain (principal); R06.02 Shortness of breath; R60.0 Localized edema; Z03.818 Encounter for observation for suspected exposure to other biological agents ruled out; J45.909 Unspecified asthma, uncomplicated; Z79.899 Other long term (current) drug therapy
CPT/HCPCS: 36415; 71046; 80053; 83735; 84484; 84702; 85025; 85379; 85610; 87637; 93005; 99283; 99285

== ENCOUNTER → 2025-10-16 13:46 | Outpatient (BNV) | payer MEDICARE, MEDICAID, SELFPAY | PROVIDERS: PCP Physician Assistant Medical; Visit Provider Internal Medicine Cardiovascular Disease | DX: R00.1 Bradycardia, unspecified (principal) | CPT/HCPCS: 93010 ==

== ENCOUNTER → 2025-10-16 14:14 | Outpatient (BNV) | payer MEDICARE, MEDICAID, SELFPAY | PROVIDERS: PCP Physician Assistant Medical; Visit Provider Radiology Diagnostic Radiology | DX: R07.9 Chest pain, unspecified (principal); R06.02 Shortness of breath | CPT/HCPCS: 71046 ==